=== PATIENT | male | born 1940 | race Hispanic/Latino ===

== ENCOUNTER 2016-11-08 19:10 | Inpatient (IN) | payer MEDICARE, OTHER ==
--- NOTE | 2016-11-08 19:54 | ED PDOC ---
Arrival/HPI - General Chief Complaint: Abdominal Pain Time Seen by Provider: 11/08/16 19:24 Historian: Patient, Family - History of Present Illness Narrative History of Present Illness (Text): 11/08/16 19:51 Pt. to ED PMHX HTN,hyperlipidemia with c/o upper abdominal discomfort since earlier today.No N/V/D.No chest pain or SOB. Past Medical History - Provider Review Nursing Documentation Reviewed: Yes - Travel History Have you recently traveled outside [place] w/in the past 3 mons?: Yes If Yes, travel location?: [place] - Infectious Disease Hx of Infectious Diseases: None - Cardiac Hx Cardiac Disorders: Yes Hx Hypertension: Yes - Pulmonary Hx Respiratory Disorders: No - Neurological Hx Neurological Disorder: No - HEENT Hx HEENT Disorder: No - Renal Hx Renal Disorder: No - Endocrine/Metabolic Hx Endocrine Disorders: No - Hematological/Oncological Hx Blood Disorders: No - Integumentary Hx Dermatological Disorder: No - Musculoskeletal/Rheumatological Hx Musculoskeletal Disorders: No - Gastrointestinal Hx Gastrointestinal Disorders: No - Genitourinary/Gynecological Hx Genitourinary Disorders: No - Psychiatric Hx Psychophysiologic Disorder: No Hx Substance Use: No - Surgical History Other/Comment: intestinal surgery - Anesthesia Hx Anesthesia: Yes Hx Anesthesia Reactions: No Hx Malignant Hyperthermia: No Family/Social History - Physician Review Nursing Documentation Reviewed: Yes Family/Social History: Hypertension Smoking Status: Never Smoked Hx Alcohol Use: Yes Hx Substance Use: No Allergies/Home Meds Allergies/Adverse Reactions: Allergies No Known Allergies Allergy (Verified 11/08/16 19:39) Home Medications: Home Meds Medication Instructions Recorded Confirmed Rosuvastatin Calcium [Crestor] 10 mg PO DIN 07/08/16 11/08/16 Olmesartan/Hydrochlorothiazide 1 tab PO DAILY 11/08/16 11/08/16 [Benicar Hct 20-12.5 mg Tablet] Review of Systems - Review of Systems Constitutional: Normal Eyes: Normal ENT: Normal Respiratory: Normal Cardiovascular: Normal Gastrointestinal: Abdominal Pain Genitourinary Male: Normal Musculoskeletal: Normal Skin: Normal Neurological: Normal Endocrine: Normal Hemo/Lymphatic: Normal Psychiatric: Normal Physical Exam Vital Signs Temp Pulse Resp BP Pulse Ox 11/09/16 01:28 69 16 165/97 H 97 11/09/16 00:47 70 16 167/81 H 11/08/16 21:53 66 16 167/78 H 98 11/08/16 19:39 98.6 F 70 19 176/75 H 99 Temperature: Afebrile Blood Pressure: Normal Pulse: Regular Respiratory Rate: Normal Appearance: Positive for: Well-Appearing, Non-Toxic, Comfortable Pain Distress: None Mental Status: Positive for: Alert and Oriented X 3 - Systems Exam Head: Present: Atraumatic, Normocephalic Pupils: Present: PERRL Extroacular Muscles: Present: EOMI Conjunctiva: Present: Normal Mouth: Present: Moist Mucous Membranes Neck: Present: Normal Range of Motion Respiratory/Chest: Present: Clear to Auscultation, Good Air Exchange. No: Respiratory Distress, Accessory Muscle Use Cardiovascular: Present: Regular Rate and Rhythm, Normal S1, S2. No: Murmurs Abdomen: Present: Tenderness (mild upper abdominal/epigastric), Normal Bowel Sounds. No: Distention, Peritoneal Signs, Rebound, Guarding, Hernias Back: Present: Normal Inspection. No: CVA Tenderness Upper Extremity: Present: Normal Inspection. No: Cyanosis, Edema Lower Extremity: Present: Normal Inspection. No: Edema Neurological: Present: GCS=15, CN II-XII Intact, Speech Normal Skin: Present: Warm, Dry, Normal Color. No: Rashes Psychiatric: Present: Alert, Oriented x 3, Normal Insight, Normal Concentration Medical Decision Making ED Course and Treatment: 11/08/16 22:19 Reviewed sono, US Abdomen shows: Liver: 1 cm cystic focus in the right lobe of the liver. Increased echogenicity/ fatty infiltration. Gallbladder: Unremarkable as visualized. No gallstones. Common bile duct: No dilation. Pancreas: Limited evaluation. Unremarkable as visualized. Kidneys: Right kidney not imaged. Left kidney measures 11.5 cm and appears unremarkable. Spleen: No splenomegaly. Aorta/IVC: Limited evaluation. Unremarkable as visualized. IMPRESSION: 1 cm cystic focus in the right lobe of the liver. Increased echogenicity/fatty infiltration of the liver. Right kidney not imaged. Correlate clinically. Followup as warranted. Chest X-ray shows no acute processes. 11/08/16 23:51 Reviewed radiology, CT Abdomen and Pelvis shows: Dilated gallbladder. Intrahepatic biliary ductal dilatation. Common bile duct measures up to [address] Radiodense focus in the region of the common bile duct/insertion in the duodenum, question obstructing stone, series 2 image 77. Approximately 4.5 mm nodule in the right lower lobe, series 5 image 1. Correlation with prior imaging/dedicated imaging to assess stability versus followup imaging recommended. Distal gastric wall/region of the antrum appears to demonstrate wall thickening. Correlate clinically. 11 mm cystic focus in the right lobe of the liver, series 2 image 39. Bilateral renal cysts/hypoattenuating lesions. 6 cm right renal cyst. The largest cysts on the left measure approximately 2.4 cm and 1.6 cm. Additional bilateral subcentimeter hypoattenuating lesions which are incompletely characterized on the current study. Prominent heterogeneous prostate. Correlate with PSA. Colonic diverticula. Small bilateral fat-containing inguinal hernias. Please see additional details/findings as above. 11/09/16 00:27 Case discussed with medical i d sales safety and health consultant, who is aware and agrees with plan. 11/09/16 00:[address] Wilson, who is aware and agrees with plan. Pt will be admitted to [facility] for choledocholithiasis and abdominal pain under the hospitalist service. - Lab Interpretations Lab Results: 11/08/16 20:05 11/08/16 20:05 Lab Results 11/08/16 22:40: Urine Color Yellow, Urine Appearance Clear, Urine pH 7.0, Ur Specific [place] 1.015, Urine Protein Negative, Urine Glucose (UA) Negative, Urine Ketones Negative, Urine Blood Negative, Urine Nitrate Negative, Urine Bilirubin Negative, Urine Urobilinogen 0.2, Ur Leukocyte Esterase Negative 11/08/16 20:05: WBC 5.9, RBC 4.47, Hgb 13.3 L, Hct 39.3 L, MCV 87.9, MCH 29.8, MCHC 33.8, RDW 12.6, Plt Count 295, MPV 8.8 11/08/16 20:05: Sodium 143, Potassium 4.5, Chloride 101, Carbon Dioxide 32, Anion Gap 15, BUN 20, Creatinine 1.2, Est GFR ( Amer) > 60, Est GFR (Non- Af Amer) 59, Random Glucose 155 H, Calcium 10.0, Total Bilirubin 1.6 H, AST 492 H, ALT 517 H, Alkaline Phosphatase 388 H, Lactate Dehydrogenase 1534 H, Total Creatine Kinase 61, Troponin I < 0.01, Total Protein 7.7, Albumin 4.4, Globulin 3.3, Albumin/Globulin Ratio 1.3, Lipase 161 11/08/16 20:05: PT 11.1, INR 1.03, APTT 25.7 I have reviewed the lab results: Yes - RAD Interpretation Narrative RAD Interpretations (Text): , CT Abdomen and Pelvis shows: Atelectasis/scarring at the lung bases. Approximately 4.5 mm nodule in the right lower lobe, series 5 image 1. Correlation with prior imaging/dedicated imaging to assess stability versus followup imaging recommended. Dilated gallbladder. Intrahepatic biliary ductal dilatation. Common bile duct measures up to [address] Radiodense focus in the region of the common bile duct/insertion in the duodenum, question obstructing stone, series 2 image 77. 11 mm cystic focus in the right lobe of the liver, series 2 image 39. The spleen, pancreas and adrenal glands demonstrate no acute abnormalities. The kidneys are symmetric with no evidence of hydronephrosis. Bilateral renal cysts/hypoattenuating lesions. 6 cm right renal cyst. The largest cysts on the left measure approximately 2.4 cm and 1.6 cm. Additional bilateral subcentimeter hypoattenuating lesions which are incompletely characterized on the current study. Atherosclerosis. Evaluation of bowel limited without enteric contrast. Minimal hiatal hernia. Distal gastric wall/region of the antrum appears to demonstrate wall thickening. No small bowel obstruction. Chain sutures, correlate for prior surgery. Colonic diverticula. Prominent heterogeneous prostate. Correlate with PSA. Small bilateral fat-containing inguinal hernias. Degenerative changes. IMPRESSION: Dilated gallbladder. Intrahepatic biliary ductal dilatation. Common bile duct measures up to [address] Radiodense focus in the region of the common bile duct/insertion in the duodenum, question obstructing stone, series 2 image 77. Approximately 4.5 mm nodule in the right lower lobe, series 5 image 1. Correlation with prior imaging/dedicated imaging to assess stability versus followup imaging recommended. Distal gastric wall/region of the antrum appears to demonstrate wall thickening. Correlate clinically. 11 mm cystic focus in the right lobe of the liver, series 2 image 39. Bilateral renal cysts/hypoattenuating lesions. 6 cm right renal cyst. The largest cysts on the left measure approximately 2.4 cm and 1.6 cm. Additional bilateral subcentimeter hypoattenuating lesions which are incompletely characterized on the current study. Prominent heterogeneous prostate. Correlate with PSA. Colonic diverticula. Small bilateral fat-containing inguinal hernias. Please see additional details/findings as above. Radiology Orders: 11/08/16 19:49 CHEST PORTABLE [RAD] Stat 11/08/16 19:54 ABDOMEN COMPLETE [US] Stat 11/08/16 22:21 ABD & PELVIS IV CONTRAST ONLY [CT] Stat Wire Bound Box Machine Operator: ED Physician, Radiologist - EKG Interpretation EKG Interpretation (Text): 11/08/16 19:55 EKG-NSR @ 63,normal interval,normal ekg Interpreted by ED Physician: Yes Type: 12 lead EKG - Medication Orders Current Medication Orders: Atorvastatin Calcium (Lipitor) 40 mg PO DIN BENJA Hydrochlorothiazide (Microzide) 12.5 mg PO DAILY BENJA Sodium Chloride (Sodium Chloride 0.9%) 1,000 mls @ 100 mls/hr IV .Q10H BENJA Last Admin: 11/08/16 20:13 Dose: 100 mls/hr Famotidine (Pepcid 20mg/50ml Premix) 20 mg in 50 mls @ 100 mls/hr IV Q12 [facility] Losartan Potassium (Cozaar) 50 mg PO DAILY [facility] Morphine Sulfate (Morphine) 2 mg IVP Q4H PRN PRN Reason: Pain, severe (8-10) Ondansetron HCl (Zofran Inj) 4 mg IVP Q6H PRN PRN Reason: Nausea/Vomiting Discontinued Medications Famotidine (Pepcid) 20 mg IVP STAT STA Stop: 11/08/16 19:52 Last Admin: 11/08/16 20:14 Dose: 20 mg Iohexol (Omnipaque 350 100 Ml) Confirm Administered Dose 350 mg .ROUTE .STK-MED ONE Stop: 11/08/16 22:27 Ketorolac Tromethamine (Toradol) 30 mg IVP ONCE ONE Stop: 11/08/16 19:51 Last Admin: 11/08/16 20:14 Dose: 30 mg Morphine Sulfate (Morphine) 2 mg IVP STAT STA Stop: 11/09/16 00:15 Last Admin: 11/09/16 01:19 Dose: 2 mg Ondansetron HCl (Zofran Inj) 4 mg IVP ONCE ONE Stop: 11/09/16 00:15 Last Admin: 11/09/16 01:20 Dose: 4 mg Pneumococcal Polyvalent Vaccine (Pneumovax 23 Vaccine) 0.5 ml IM .ONCE ONE Stop: 11/09/16 02:15 Disposition/Present on Arrival - Present on Arrival Any Indicators Present on Arrival: No History of DVT/PE: No History of Uncontrolled Diabetes: No Urinary Catheter: No History of Decub. Ulcer: No History Surgical Site Infection Following: None - Disposition Have Diagnosis and Disposition been Completed?: Yes Diagnosis: Intractable abdominal pain, Choledocholithiasis, Elevated transaminase level Disposition: HOSPITALIZED Disposition Time: 00:31 Patient Plan: Admission Patient Problems: Current Active Problems Problem Status Onset Choledocholithiasis Acute Elevated transaminase level Acute Intractable abdominal pain Acute Condition: STABLE
[2016-11-08] MEDS ORDERED: Sodium Chloride 0.9% 1,000 ML IV SCH (20:00)
[2016-11-08 20:20] LABS: HEMATOCRIT 39.3 % (42.0-52.0); MEAN CELL VOLUME 87.9 fl (80.0-105.0); MEAN CORPUSCULAR HEMOGLOBIN 29.8 pg (25.0-35.0); MEAN CORPUSCULAR HGB CONC 33.8 g/dl (31.0-37.0); MEAN PLATELET VOLUME 8.8 fl (7.0-11.0); RED CELL DISTRIBUTION WIDTH 12.6 % (11.5-14.5); WHITE BLOOD COUNT 5.9 10^3/ul (4.5-11.0)
[2016-11-08 20:27] LABS: INR 1.03 (0.93-1.08); PARTIAL THROMBOPLASTIN TIME 25.7 Seconds (23.7-30.8)
[2016-11-08 20:31] LABS: ALB/GLOB RATIO 1.3 (1.1-1.8); ALKALINE PHOSPHATASE 388 U/L (38-133); ALT/SGPT 517 U/L (7-56); AST/SGOT 492 U/L (15-59); BILIRUBIN,TOTAL 1.6 mg/dL (0.2-1.3); BLOOD UREA NITROGEN 20 mg/dL (7-21); CARBON DIOXIDE 32 mmol/L (21-33); CHLORIDE 101 mmol/L (98-107); GFR AFRICAN-AMERICAN > 60; GLUCOSE,RANDOM 155 mg/dL (70-110); LIPASE 161 U/L (23-300); POTASSIUM 4.5 mmol/L (3.6-5.0); SODIUM 143 mmol/L (132-148); TOTAL PROTEIN 7.7 g/dL (5.8-8.3)
[2016-11-08 20:43] LABS: TROPONIN I < 0.01 ng/mL
--- NOTE | 2016-11-08 21:43 | US ---
EXAM: US Abdomen Complete CLINICAL HISTORY: 76 years old, male; Pain; Abdominal pain; Additional info: Upper abdominal discomfort TECHNIQUE: Real-time ultrasound of the abdomen (complete) with image documentation. COMPARISON: No relevant prior studies available. FINDINGS: Liver: 1 cm cystic focus in the right lobe of the liver. Increased echogenicity/fatty infiltration. Gallbladder: Unremarkable as visualized. No gallstones. Common bile duct: No dilation. Pancreas: Limited evaluation. Unremarkable as visualized. Kidneys: Right kidney not imaged. Left kidney measures 11.5 cm and appears unremarkable. Spleen: No splenomegaly. Aorta/IVC: Limited evaluation. Unremarkable as visualized. IMPRESSION: 1 cm cystic focus in the right lobe of the liver. Increased echogenicity/fatty infiltration of the liver. Right kidney not imaged. Correlate clinically. Followup as warranted.
[2016-11-08] MEDS ORDERED: Iohexol 350 MG/100 ML VIAL ONE (22:26)
[2016-11-08 22:46] LABS: URINE BILIRUBIN NEGATIVE (NEGATIVE); URINE BLOOD NEGATIVE (NEGATIVE); URINE GLUCOSE (UA) NEGATIVE (NEGATIVE); URINE KETONE NEGATIVE (NEGATIVE); URINE LEUKOCYTE ESTERASE NEGATIVE Leu/uL (NEGATIVE); URINE PROTEIN NEGATIVE mg/dL (<30 mg/dL); URINE UROBILINOGEN 0.2 E.U./dL (<1 E.U./dL)
[2016-11-08 22:51] LABS: URINE APPEARANCE CLEAR (CLEAR); URINE COLOR YELLOW (YELLOW)
--- NOTE | 2016-11-08 23:50 | CT ---
EXAM: CT Abdomen and Pelvis With Intravenous Contrast CLINICAL HISTORY: 76 years old, male; Pain; Abdominal pain; Epigastric; Prior surgery; Surgery date: 6+ months; Surgery type: Colon surgery; Additional info: Upper abdominal pain TECHNIQUE: Axial computed tomography images of the abdomen and pelvis with intravenous contrast. All CT scans at this facility use one or more dose reduction techniques, viz.: automated exposure control; ma/kV adjustment per patient size (including targeted exams where dose is matched to indication; i.e. head); or iterative reconstruction technique. Coronal and sagittal reformatted images were created and reviewed. CONTRAST: 96 mL of [id number] administered intravenously. COMPARISON: US - ABDOMEN COMPLETE 11/08/2016 8:32:20 PM FINDINGS: Atelectasis/scarring at the lung bases. Approximately 4.5 mm nodule in the right lower lobe, series 5 image 1. Correlation with prior imaging/dedicated imaging to assess stability versus followup imaging recommended. Dilated gallbladder. Intrahepatic biliary ductal dilatation. Common bile duct measures up to [address] Radiodense focus in the region of the common bile duct/insertion in the duodenum, question obstructing stone, series 2 image 77. 11 mm cystic focus in the right lobe of the liver, series 2 image 39. The spleen, pancreas and adrenal glands demonstrate no acute abnormalities. The kidneys are symmetric with no evidence of hydronephrosis. Bilateral renal cysts/hypoattenuating lesions. 6 cm right renal cyst. The largest cysts on the left measure approximately 2.4 cm and 1.6 cm. Additional bilateral subcentimeter hypoattenuating lesions which are incompletely characterized on the current study. Atherosclerosis. Evaluation of bowel limited without enteric contrast. Minimal hiatal hernia. Distal gastric wall/region of the antrum appears to demonstrate wall thickening. No small bowel obstruction. Chain sutures, correlate for prior surgery. Colonic diverticula. Prominent heterogeneous prostate. Correlate with PSA. Small bilateral fat-containing inguinal hernias. Degenerative changes. IMPRESSION: Dilated gallbladder. Intrahepatic biliary ductal dilatation. Common bile duct measures up to [address] Radiodense focus in the region of the common bile duct/insertion in the duodenum, question obstructing stone, series 2 image 77. Approximately 4.5 mm nodule in the right lower lobe, series 5 image 1. Correlation with prior imaging/dedicated imaging to assess stability versus followup imaging recommended. Distal gastric wall/region of the antrum appears to demonstrate wall thickening. Correlate clinically. 11 mm cystic focus in the right lobe of the liver, series 2 image 39. Bilateral renal cysts/hypoattenuating lesions. 6 cm right renal cyst. The largest cysts on the left measure approximately 2.4 cm and 1.6 cm. Additional bilateral subcentimeter hypoattenuating lesions which are incompletely characterized on the current study. Prominent heterogeneous prostate. Correlate with PSA. Colonic diverticula. Small bilateral fat-containing inguinal hernias. Please see additional details/findings as above.
[2016-11-09] MEDS ORDERED: Morphine 2 mg/ml ISec IVP STA (00:14)
--- NOTE | 2016-11-09 01:36 | CP.PCM.HP ---
<David Messer - Last Filed: 11/09/16 02:43> History of Present Illness - History of Present Illness History of Present Illness: CC: Abdominal Pain HPI: Patient is a 76 year old male with past medical history significant for HLD and HTN who presents complaining of mid-epigastric abdominal pain. Patient reports beginning around 5 AM on 11/08/2016 he began experiencing constant, dull , achy non radiating mid-epigastric pain. He rated the pain as moderate and denies alleviating or aggravating factors. Patient denies fever, chills, nausea , vomiting, change in bowel habits or stool, hematochezia, chest pain and shortness of breath.Patient reports similar episodes of pain about 3-4 months ago. He states he took Tylenol for his symptoms and the pain resolved on its own. Patient does state he has had an endoscopy and colonoscopy a few years ago which were reported as normal. 12 point review of system was negative except for what is mentioned in HPI PMH: HLD, HTN PSH: Tumor removal of small intestine in 2002 FMH: - Father: CABG, [place]? - Mother: none SOCHx: - Tobacco: Former, 1 PPD ~20 years - Etoh: Social, wine - ID: Denies ALL: NKDA MEDS: - Pa[place] - Gabby PMD: Dr. Jason Jones Present on Admission - Present on Admission Any Indicators Present on Admission: No History of DVT/PE: No History of Uncontrolled Diabetes: No Urinary Catheter: No Decubitus Ulcer Present: No Review of Systems - Review of Systems All systems: reviewed and no additional remarkable complaints except Review of Systems: except for what is mentioned in HPI Past Patient History - Infectious Disease Hx of Infectious Diseases: None - Past Social History Smoking Status: Former Smoker Alcohol: Social Drugs: Denies - CARDIAC Hx Cardiac Disorders: Yes Hx Hypertension: Yes - PULMONARY Hx Respiratory Disorders: No - NEUROLOGICAL Hx Neurological Disorder: No - HEENT Hx HEENT Problems: No - RENAL Hx Chronic Kidney Disease: No - ENDOCRINE/METABOLIC Hx Endocrine Disorders: No - HEMATOLOGICAL/ONCOLOGICAL Hx Blood Disorders: No - INTEGUMENTARY Hx Dermatological Problems: No - MUSCULOSKELETAL/RHEUMATOLOGICAL Hx Musculoskeletal Disorders: No - GASTROINTESTINAL Hx Gastrointestinal Disorders: No - GENITOURINARY/GYNECOLOGICAL Hx Genitourinary Disorders: No - PSYCHIATRIC Hx Psychophysiologic Disorder: No Hx Substance Use: No - SURGICAL HISTORY Other/Comment: intestinal surgery - ANESTHESIA Hx Anesthesia: Yes Hx Anesthesia Reactions: No Hx Malignant Hyperthermia: No Meds Allergies/Adverse Reactions: Allergies Allergy/AdvReac Type Severity Reaction Status Date / Time No Known Allergies Allergy Verified 11/08/16 19:39 Physical Exam - Constitutional Appears: Well - Head Exam Head Exam: ATRAUMATIC, NORMAL INSPECTION, NORMOCEPHALIC - Eye Exam Eye Exam: EOMI, PERRL - ENT Exam ENT Exam: Mucous Membranes Moist - Neck Exam Neck exam: Positive for: Full Rom, Normal Inspection - Respiratory Exam Respiratory Exam: Clear to Auscultation Bilateral, NORMAL BREATHING PATTERN - Cardiovascular Exam Cardiovascular Exam: REGULAR RHYTHM, +S1, +S2 - GI/Abdominal Exam GI & Abdominal Exam: Normal Bowel Sounds, Soft, Tenderness (mid epigastric ). absent: Firm, Rebound - Rectal Exam Rectal Exam: Deferred - Extremities Exam Extremities exam: Positive for: normal inspection, pedal pulses present. Negative for: calf tenderness - Back Exam Back exam: NORMAL INSPECTION - Neurological Exam Neurological exam: Alert, CN II-XII Intact, Normal Gait, Oriented x3, Reflexes Normal - Psychiatric Exam Psychiatric exam: Normal Affect, Normal Mood - Skin Skin Exam: Dry, Intact, Normal Color, Warm Results - Vital Signs Recent Vital Signs: Last Vital Signs Temp 98.6 F 11/08/16 19:39 Pulse 69 11/09/16 01:28 Resp 16 11/09/16 01:28 BP 165/97 H 11/09/16 01:28 Pulse Ox 97 11/09/16 01:28 - Labs Result Diagrams: 11/08/16 20:05 11/08/16 20:05 Labs: Laboratory Results - last 24 hr 11/08/16 11/08/16 11/08/16 20:05 20:05 20:05 WBC 5.9 RBC 4.47 Hgb 13.3 L Hct 39.3 L MCV 87.9 MCH 29.8 MCHC 33.8 RDW 12.6 Plt Count 295 MPV 8.8 PT 11.1 INR 1.03 APTT 25.7 Sodium 143 Potassium 4.5 Chloride 101 Carbon Dioxide 32 Anion Gap 15 BUN 20 Creatinine 1.2 Est GFR ( Amer) > 60 Est GFR (Non-Af Amer) 59 Random Glucose 155 H Calcium 10.0 Total Bilirubin 1.6 H AST 492 H ALT 517 H Alkaline Phosphatase 388 H Lactate Dehydrogenase 1534 H Total Creatine Kinase 61 Troponin I < 0.01 Total Protein 7.7 Albumin 4.4 Globulin 3.3 Albumin/Globulin Ratio 1.3 Lipase 161 Urine Color Urine Appearance Urine pH Ur Specific [place] Urine Protein Urine Glucose (UA) Urine Ketones Urine Blood Urine Nitrate Urine Bilirubin Urine Urobilinogen Ur Leukocyte Esterase 11/08/16 22:40 WBC RBC Hgb Hct MCV MCH MCHC RDW Plt Count MPV PT INR APTT Sodium Potassium Chloride Carbon Dioxide Anion Gap BUN Creatinine Est GFR ( Amer) Est GFR (Non-Af Amer) Random Glucose Calcium Total Bilirubin AST ALT Alkaline Phosphatase Lactate Dehydrogenase Total Creatine Kinase Troponin I Total Protein Albumin Globulin Albumin/Globulin Ratio Lipase Urine Color Yellow Urine Appearance Clear Urine pH 7.0 Ur Specific [place] 1.015 Urine Protein Negative Urine Glucose (UA) Negative Urine Ketones Negative Urine Blood Negative Urine Nitrate Negative Urine Bilirubin Negative Urine Urobilinogen 0.2 Ur Leukocyte Esterase Negative Assessment & Plan - Assessment and Plan (Free Text) Assessment: Patient is a 76 year old male with past medical history significant for HLD and HTN who presents complaining of mid-epigastric abdominal pain. CT abdomen shows evidence of stone in CBD with right hepatic lobe present. Patient will be admitted for observation and evaluation by GI. Plan: 1. Choledocholithiasis - CT abdomen and pelvis showing evidence of stone within CBD at insertion of duodenum as well as 4.5 mm hepatic nodule in right lower lobe - Consult GI, appreciate recs - NPO - Analgesia with [id number] Q4H prn - Zofran - IVF - Repeat labs in AM 2. Transaminitis - AST 492, ALT 517 - Likely secondary to CBD obstruction - IVF - Monitor 3. HTN - Continue PO home meds - Monitor 4. Hx of HLD - Continue to PO home meds GI/DVT ppx - IV pepcid - SCDs - Date & Time Date: 11/09/16 Time: 02:33 <Dipak Wilson Q - Last Filed: 11/09/16 04:30> Results - Vital Signs Recent Vital Signs: Last Vital Signs Temp 98.8 F 11/09/16 02:08 Pulse 67 11/09/16 02:08 Resp 18 11/09/16 02:08 BP 170/79 H 11/09/16 02:08 Pulse Ox 97 11/09/16 01:28 - Labs Result Diagrams: 11/08/16 20:05 11/08/16 20:05 Attending/Attestation - Attestation I have personally seen and examined this patient.: Yes I have fully participated in the care of the patient.: Yes I have reviewed all pertinent clinical information: Yes Notes (Text): 11/09/16 04:29 I agree with the above mentioned note and exam by the resident with the addition /exception of the followin76 y/o male with Htn and dyslipidemia presents with worsening abdominal pain which he reports has been occurring intermittently for months. CT Abd/pelvis is most notable for a dilated CBD with stone present. GI consulted, possible ERCP if the patient's symptoms fail to respond with supportive measures.
[2016-11-09] MEDS ORDERED: Morphine 2 mg/ml ISec IVP PRN (02:10)
[2016-11-09 02:14] VITALS: BMI 25.6
[2016-11-09] MEDS ORDERED: Pneumococcal 23-Valent Vaccine IM ONE (02:14)
--- NOTE | 2016-11-09 07:48 | RAD ---
HISTORY: abdominal pain COMPARISON: 07/08/2016 FINDINGS: LUNGS: No active pulmonary disease. PLEURA: No significant pleural effusion identified, no pneumothorax apparent. CARDIOVASCULAR: Normal. OSSEOUS STRUCTURES: No significant abnormalities. VISUALIZED UPPER ABDOMEN: Normal. OTHER FINDINGS: None. IMPRESSION: No active disease.
[2016-11-09] MEDS ORDERED: Iohexol 240 (50 ml) ONE (08:26)
[2016-11-09] MEDS ORDERED: Indomethacin 50 MG Suppository PR ONE (08:36)
[2016-11-09 08:38] LABS: BASO # 0.02 K/mm3 (0.0-2.0); BASO % 0.1 % (0.0-3.0); EOS % 0.2 % (1.5-5.0); GRAN # 12.07 (1.4-6.5); GRAN % 90.5 % (50.0-68.0); HEMATOCRIT 39.2 % (42.0-52.0); LYMPH # 0.7 (1.2-3.4); LYMPH % 4.9 % (22.0-35.0); MEAN CELL VOLUME 87.7 fl (80.0-105.0); MEAN CORPUSCULAR HEMOGLOBIN 29.8 pg (25.0-35.0); MEAN CORPUSCULAR HGB CONC 33.9 g/dl (31.0-37.0); MEAN PLATELET VOLUME 8.8 fl (7.0-11.0); MONO # 0.6 (0.1-0.6); MONO % 4.3 % (1.0-6.0); PLATELET COUNT 291 10^3/uL (120.0-450.0); RED CELL DISTRIBUTION WIDTH 12.8 % (11.5-14.5); WHITE BLOOD COUNT 13.4 10^3/ul (4.5-11.0)
[2016-11-09 08:50] LABS: ALB/GLOB RATIO 1.3 (1.1-1.8); ALKALINE PHOSPHATASE 386 U/L (38-133); ALT/SGPT 474 U/L (7-56); AST/SGOT 298 U/L (15-59); BLOOD UREA NITROGEN 15 mg/dL (7-21); CALCIUM 9.4 mg/dL (8.4-10.5); CARBON DIOXIDE 29 mmol/L (21-33); CHLORIDE 105 mmol/L (98-107); GFR AFRICAN-AMERICAN > 60; GLUCOSE,RANDOM 117 mg/dL (70-110); POTASSIUM 4.7 mmol/L (3.6-5.0); SODIUM 146 mmol/L (132-148); TOTAL PROTEIN 7.3 g/dL (5.8-8.3)
[2016-11-09 08:58] LABS: ANISOCYTOSIS SLIGHT; NEUTROPHIL 90 % (50.0-70.0); PLATELET ESTIMATE NORMAL (NORMAL)
[2016-11-09] MEDS: Famotidine 20mg/50ml 20 MG/50 ML BAG IV SCH ×2 (09:41→22:02)
--- NOTE | 2016-11-09 10:03 | CP.PCM.CON ---
<Jacy Turner - Last Filed: 11/09/16 10:04> History of Present Illness - History of Present Illness History of Present Illness: Gastroenterology Fellow/PGY5 Consult Note 76 year old male with history of Hypertension, Hyperlipidemia,and prior small bowel tumor removal 2002 presenting with abdominal pain. Patient describes epigastric to right upper abdomen "pinching" intermittent pain yesterday. He had similar pain for a week straight last week and three months ago. Denies fever, chills, sweats, nausea, vomiting, hematemesis, diarrhea, constipation, melena, hematochezia, or unintentional weight loss. No prior EGD or colonoscopy. Family- denies cholelithiasis, liver disease, colorectal cancer Social- quit tobacco 25 years ago, denies alcohol or illicit drug use Surgery- "small bowel tumor removal" 2002 Review of Systems - Review of Systems Review of Systems: 12-point review of systems negative except for as above Past Patient History - Infectious Disease Hx of Infectious Diseases: None - Past Social History Smoking Status: Never Smoked - CARDIAC Hx Cardiac Disorders: Yes Hx Hypertension: Yes - PULMONARY Hx Respiratory Disorders: No - NEUROLOGICAL Hx Neurological Disorder: No - HEENT Hx HEENT Problems: No - RENAL Hx Chronic Kidney Disease: No - ENDOCRINE/METABOLIC Hx Endocrine Disorders: No - HEMATOLOGICAL/ONCOLOGICAL Hx Blood Disorders: No - INTEGUMENTARY Hx Dermatological Problems: No - MUSCULOSKELETAL/RHEUMATOLOGICAL Hx Musculoskeletal Disorders: No - GASTROINTESTINAL Hx Gastrointestinal Disorders: No - GENITOURINARY/GYNECOLOGICAL Hx Genitourinary Disorders: No - PSYCHIATRIC Hx Psychophysiologic Disorder: No Hx Substance Use: No - SURGICAL HISTORY Other/Comment: intestinal surgery - ANESTHESIA Hx Anesthesia: Yes Hx Anesthesia Reactions: No Hx Malignant Hyperthermia: No Meds Allergies/Adverse Reactions: Allergies Allergy/AdvReac Type Severity Reaction Status Date / Time No Known Allergies Allergy Verified 11/08/16 19:39 - Medications Medications: Current Medications Atorvastatin Calcium (Lipitor) 40 mg PO DIN [facility] Hydrochlorothiazide (Microzide) 12.5 mg PO DAILY [facility] Last Admin: 11/09/16 09:41 Dose: 12.5 mg Sodium Chloride (Sodium Chloride 0.9%) 1,000 mls @ 100 mls/hr IV .Q10H [facility] Last Admin: 11/08/16 20:13 Dose: 100 mls/hr Famotidine (Pepcid 20mg/50ml Premix) 20 mg in 50 mls @ 100 mls/hr IV Q12 [facility] Last Admin: 11/09/16 09:41 Dose: 100 mls/hr Losartan Potassium (Cozaar) 50 mg PO DAILY [facility] Last Admin: 11/09/16 09:41 Dose: 50 mg Morphine Sulfate (Morphine) 2 mg IVP Q4H PRN PRN Reason: Pain, severe (8-10) Ondansetron HCl (Zofran Inj) 4 mg IVP Q6H PRN PRN Reason: Nausea/Vomiting Physical Exam - Constitutional Appears: Non-toxic, No Acute Distress - Head Exam Head Exam: ATRAUMATIC, NORMOCEPHALIC - Eye Exam Eye Exam: EOMI, PERRL Pupil Exam: PERRL. absent: Miosis, Mydriatic - ENT Exam ENT Exam: Mucous Membranes Moist, Normal Oropharynx - Neck Exam Neck exam: Positive for: Full Rom, Normal Inspection - Respiratory Exam Respiratory Exam: Clear to Auscultation Bilateral. absent: Rales, Rhonchi, Wheezes - Cardiovascular Exam Cardiovascular Exam: RRR, +S1, +S2. absent: Gallop, Rubs - GI/Abdominal Exam GI & Abdominal Exam: Normal Bowel Sounds, Soft. absent: Distended, Firm, Guarding, Organomegaly, Rebound, Rigid ( ), Tenderness - Extremities Exam Extremities exam: Positive for: normal inspection. Negative for: pedal edema - Neurological Exam Neurological exam: Alert - Psychiatric Exam Psychiatric exam: Normal Affect, Normal Mood - Skin Skin Exam: Dry, Intact, Normal Color, Warm Results - Vital Signs Recent Vital Signs: Last Vital Signs Temp 99.1 F 11/09/16 07:00 Pulse 82 11/09/16 07:00 Resp 18 11/09/16 07:00 BP 162/92 H 11/09/16 07:00 Pulse Ox 95 11/09/16 07:00 - Labs Result Diagrams: 11/09/16 08:20 11/09/16 08:20 Labs: Laboratory Results - last 24 hr 11/09/16 11/09/16 08:20 08:20 WBC 13.4 H D RBC 4.47 Hgb 13.3 L Hct 39.2 L MCV 87.7 MCH 29.8 MCHC 33.9 RDW 12.8 Plt Count 291 MPV 8.8 Gran % 90.5 H Lymph % (Auto) 4.9 L [place] % (Auto) 4.3 Eos % (Auto) 0.2 L Baso % (Auto) 0.1 Gran # 12.07 H Lymph # 0.7 L [place] # 0.6 Eos # 0.0 Baso # 0.02 Neutrophils % (Manual) 90 H Lymphocytes % (Manual) 5 L Monocytes % (Manual) 5 Platelet Evaluation Normal Anisocytosis (manual) Slight Sodium 146 Potassium 4.7 Chloride 105 Carbon Dioxide 29 Anion Gap 17 BUN 15 Creatinine 1.1 Est GFR ( Amer) > 60 Est GFR (Non-Af Amer) > 60 Random Glucose 117 H Calcium 9.4 Total Bilirubin 3.0 H AST 298 H ALT 474 H Alkaline Phosphatase 386 H Total Protein 7.3 Albumin 4.1 Globulin 3.1 Albumin/Globulin Ratio 1.3 Assessment & Plan - Assessment and Plan (Free Text) Assessment: 76 year old male with history of Hypertension, Hyperlipidemia, and prior small bowel tumor removal 2002 presenting with abdominal pain. Active treatment of choledocholithiasis. No prior EGD or colonoscopy. Plan: >scheduled for EGD/EUS/ERCP today >NPO >obtain surgery consult for cholecystectomy >supportive care: pain control, antiemetics >trend LFTs >hemodynamically stable >further recommendations after endoscopic procedures <Kishor Rivera - Last Filed: 11/09/16 12:25> Meds - Medications Medications: Current Medications Atorvastatin Calcium (Lipitor) 40 mg PO DIN [facility] Hydrochlorothiazide (Microzide) 12.5 mg PO DAILY [facility] Last Admin: 11/09/16 09:41 Dose: 12.5 mg Sodium Chloride (Sodium Chloride 0.9%) 1,000 mls @ 100 mls/hr IV .Q10H [facility] Last Admin: 11/08/16 20:13 Dose: 100 mls/hr Famotidine (Pepcid 20mg/50ml Premix) 20 mg in 50 mls @ 100 mls/hr IV Q12 [facility] Last Admin: 11/09/16 09:41 Dose: 100 mls/hr Losartan Potassium (Cozaar) 50 mg PO DAILY [facility] Last Admin: 11/09/16 09:41 Dose: 50 mg Morphine Sulfate (Morphine) 2 mg IVP Q4H PRN PRN Reason: Pain, severe (8-10) Ondansetron HCl (Zofran Inj) 4 mg IVP Q6H PRN PRN Reason: Nausea/Vomiting Results - Vital Signs Recent Vital Signs: Last Vital Signs Temp 99.1 F 11/09/16 07:00 Pulse 82 11/09/16 07:00 Resp 18 11/09/16 07:00 BP 162/92 H 11/09/16 07:00 Pulse Ox 95 11/09/16 07:00 - Labs Result Diagrams: 11/09/16 08:20 11/09/16 08:20 Labs: Laboratory Results - last 24 hr 11/09/16 11/09/16 08:20 08:20 WBC 13.4 H D RBC 4.47 Hgb 13.3 L Hct 39.2 L MCV 87.7 MCH 29.8 MCHC 33.9 RDW 12.8 Plt Count 291 MPV 8.8 Gran % 90.5 H Lymph % (Auto) 4.9 L [place] % (Auto) 4.3 Eos % (Auto) 0.2 L Baso % (Auto) 0.1 Gran # 12.07 H Lymph # 0.7 L [place] # 0.6 Eos # 0.0 Baso # 0.02 Neutrophils % (Manual) 90 H Lymphocytes % (Manual) 5 L Monocytes % (Manual) 5 Platelet Evaluation Normal Anisocytosis (manual) Slight Sodium 146 Potassium 4.7 Chloride 105 Carbon Dioxide 29 Anion Gap 17 BUN 15 Creatinine 1.1 Est GFR ( Amer) > 60 Est GFR (Non-Af Amer) > 60 Random Glucose 117 H Calcium 9.4 Total Bilirubin 3.0 H AST 298 H ALT 474 H Alkaline Phosphatase 386 H Total Protein 7.3 Albumin 4.1 Globulin 3.1 Albumin/Globulin Ratio 1.3 Attending/Attestation - Attestation I have personally seen and examined this patient.: Yes I have fully participated in the care of the patient.: Yes I have reviewed all pertinent clinical information: Yes Notes (Text): 11/09/16 12:20 76 year old male who presents with epigastric pain, elevated lfts, and evidence of choledocholithiasis on CT. 1. Choledocholithiasis Plan: -NPO -ercp today -start zosyn due to elev wbc in the setting of choledocholithiasis -surgical consult for eventual cholecystectomy -pain control as needed and IV hydration
--- NOTE | 2016-11-09 13:46 | CP.PCM.CON ---
History of Present Illness - History of Present Illness History of Present Illness: Surgery Consult Note: Dr. Higuera 76 yo M with PMH of HLD and HTN presented to ED yesterday with 2 mo hx of waxing and waning epigastric and RUQ pain. Surgery was consulted following abdominal CT which revealed 1cm liver lesion, small bowel lesion, and dilated CBD at 7mm. Pain is constant when present, and intermittently worse with deep inspiration. Pt complains of associated with insomnia and inability to "get comfortable" at rest. Pt took 2 acetaminophen yesterday for abdominal pain without relief. He states now that his pain is entirely resolved. He denies f/c/ n/v. Pt's daughter at bedside. PSH: small bowel tumor resection 2002 Social: NS (quit 25 years ago), occasional alcohol use. NKDA Review of Systems - Constitutional Constitutional: absent: Chills, Fever - Respiratory Respiratory: Pain on Inspiration. absent: Dyspnea - Gastrointestinal Gastrointestinal: Abdominal Pain. absent: Nausea, Vomiting Past Patient History - Infectious Disease Hx of Infectious Diseases: None - Past Social History Smoking Status: Never Smoked - CARDIAC Hx Cardiac Disorders: Yes Hx Hypertension: Yes - PULMONARY Hx Respiratory Disorders: No - NEUROLOGICAL Hx Neurological Disorder: No - HEENT Hx HEENT Problems: No - RENAL Hx Chronic Kidney Disease: No - ENDOCRINE/METABOLIC Hx Endocrine Disorders: No - HEMATOLOGICAL/ONCOLOGICAL Hx Blood Disorders: No - INTEGUMENTARY Hx Dermatological Problems: No - MUSCULOSKELETAL/RHEUMATOLOGICAL Hx Musculoskeletal Disorders: No - GASTROINTESTINAL Hx Gastrointestinal Disorders: No - GENITOURINARY/GYNECOLOGICAL Hx Genitourinary Disorders: No - PSYCHIATRIC Hx Psychophysiologic Disorder: No Hx Substance Use: No - SURGICAL HISTORY Other/Comment: intestinal surgery - ANESTHESIA Hx Anesthesia: Yes Hx Anesthesia Reactions: No Hx Malignant Hyperthermia: No Meds Allergies/Adverse Reactions: Allergies Allergy/AdvReac Type Severity Reaction Status Date / Time No Known Allergies Allergy Verified 11/08/16 19:39 - Medications Medications: Current Medications Atorvastatin Calcium (Lipitor) 40 mg PO DIN [facility] Hydrochlorothiazide (Microzide) 12.5 mg PO DAILY [facility] Last Admin: 11/09/16 09:41 Dose: 12.5 mg Sodium Chloride (Sodium Chloride 0.9%) 1,000 mls @ 100 mls/hr IV .Q10H [facility] Last Admin: 11/08/16 20:13 Dose: 100 mls/hr Famotidine (Pepcid 20mg/50ml Premix) 20 mg in 50 mls @ 100 mls/hr IV Q12 [facility] Last Admin: 11/09/16 09:41 Dose: 100 mls/hr Piperacillin Sod/Tazobactam Sod (Zosyn 3.375 In Ns 100ml) 100 mls @ 200 mls/hr IVPB Q6 [facility] PRN Reason: Protocol Stop: 11/10/16 00:29 Losartan Potassium (Cozaar) 50 mg PO DAILY [facility] Last Admin: 11/09/16 09:41 Dose: 50 mg Morphine Sulfate (Morphine) 2 mg IVP Q4H PRN PRN Reason: Pain, severe (8-10) Ondansetron HCl (Zofran Inj) 4 mg IVP Q6H PRN PRN Reason: Nausea/Vomiting Physical Exam - Constitutional Appears: Non-toxic, No Acute Distress Additional comments: Afebrile. Resting comfortably. Speaking in full sentences. - Head Exam Head Exam: ATRAUMATIC, NORMAL INSPECTION, NORMOCEPHALIC - Eye Exam Eye Exam: Normal appearance. absent: Conjunctival injection, Periorbital swelling, Scleral icterus - ENT Exam ENT Exam: Mucous Membranes Moist - Respiratory Exam Respiratory Exam: NORMAL BREATHING PATTERN. absent: Accessory Muscle Use, Respiratory Distress - GI/Abdominal Exam GI & Abdominal Exam: absent: Distended, Firm, Guarding - Neurological Exam Neurological exam: Alert, Oriented x3 - Psychiatric Exam Psychiatric exam: Normal Affect, Normal Mood - Skin Skin Exam: Dry, Intact, Warm Additional comments: No pitting edema bilaterally. Normal distal skin texture and turgor bilaterally. No jaundice. Results - Vital Signs Recent Vital Signs: Last Vital Signs Temp 99.1 F 11/09/16 07:00 Pulse 82 11/09/16 07:00 Resp 18 11/09/16 07:00 BP 162/92 H 11/09/16 07:00 Pulse Ox 95 11/09/16 07:00 - Labs Result Diagrams: 11/09/16 08:20 11/09/16 08:20 Labs: Laboratory Results - last 24 hr 11/09/16 11/09/16 08:20 08:20 WBC 13.4 H D RBC 4.47 Hgb 13.3 L Hct 39.2 L MCV 87.7 MCH 29.8 MCHC 33.9 RDW 12.8 Plt Count 291 MPV 8.8 Gran % 90.5 H Lymph % (Auto) 4.9 L [place] % (Auto) 4.3 Eos % (Auto) 0.2 L Baso % (Auto) 0.1 Gran # 12.07 H Lymph # 0.7 L [place] # 0.6 Eos # 0.0 Baso # 0.02 Neutrophils % (Manual) 90 H Lymphocytes % (Manual) 5 L Monocytes % (Manual) 5 Platelet Evaluation Normal Anisocytosis (manual) Slight Sodium 146 Potassium 4.7 Chloride 105 Carbon Dioxide 29 Anion Gap 17 BUN 15 Creatinine 1.1 Est GFR ( Amer) > 60 Est GFR (Non-Af Amer) > 60 Random Glucose 117 H Calcium 9.4 Total Bilirubin 3.0 H AST 298 H ALT 474 H Alkaline Phosphatase 386 H Total Protein 7.3 Albumin 4.1 Globulin 3.1 Albumin/Globulin Ratio 1.3 Assessment & Plan - Assessment and Plan (Free Text) Assessment: 76M with choledocholithiasis. -Possible cholecystectomy tomorrow pending results of ERCP. -anti-emetics and pain meds PRN -NPO @ [place] - medical clearance -Zosyn per ID recs. d/w Dr Kalen Seth, PGY3
[2016-11-09] MEDS ORDERED: Piperacillin/Tazobact 3.375 gm Inj IVPB ONE (14:43)
[2016-11-09] MEDS ORDERED: Midazolam 2 MG/2 ML VIAL ONE (14:45)
[2016-11-09] MEDS ORDERED: Propofol 10 mg/ml Inj (20 ML) ONE (14:45)
[2016-11-09] MEDS ORDERED: Succinylcholine 200 mg/10 ml Inj IV ONE (14:46)
[2016-11-09] MEDS ORDERED: Rocuronium 10 mg/ml (5 ml) ONE (14:46)
[2016-11-09] MEDS ORDERED: Glucagon Recombinant 1 mg Inj ONE (15:05)
[2016-11-09] MEDS ORDERED: ePHEDrine 50 mg/ml Inj ONE (15:09)
[2016-11-09] MEDS ORDERED: Neostigmine Methylsulfate 3mg/3ml Syringe IV ONE (15:23)
[2016-11-09] MEDS ORDERED: Sodium Chloride 0.9% 1,000 ML IV SCH (16:15)
[2016-11-09] MEDS ORDERED: Piperacillin/Tazobact 3.375 gm 100 ML IVPB SCH (18:00)
[2016-11-09 18:39] VITALS: RESP 18
--- NOTE | 2016-11-09 20:04 | CARD ---
APPROVED REPORT EKG Measurement Heart [id number] <Conclusion> Normal sinus rhythm Normal ECG
--- NOTE | 2016-11-09 22:15 | CP.PCM.CON ---
History of Present Illness - History of Present Illness History of Present Illness: Infectious Disease Consultation: November 09, 2016 76 yo male with mid-epigastric abdominal pain. CT scan showing dilated gallbladder and intrahepatic biliary ductal dilatation of 7mm. Possible obstructing stone. There is a 11 mm cystic focus in the right lobe of the liver. ERCP done. Suspected cholangitis. Sphincterotomy and sludge extraction done during ERCP. Continuing broad spectrum antibiotic coverage. PMHx: HTN, hyperlipidemia PSHx: tumor removal of small intestine 2002 Allergies: NKDA Social hx: tobacco 1ppd for 20 years but stopped now Social EtOH with wine No illicit drug use Active Medications Atorvastatin Calcium (Lipitor) 40 mg PO DIN [facility] Last Admin: 11/09/16 17:10 Dose: 40 mg Hydrochlorothiazide (Microzide) 12.5 mg PO DAILY [facility] Last Admin: 11/09/16 09:41 Dose: 12.5 mg Famotidine (Pepcid 20mg/50ml Premix) 20 mg in 50 mls @ 100 mls/hr IV Q12 [facility] Last Admin: 11/09/16 22:02 Dose: 100 mls/hr Piperacillin Sod/Tazobactam Sod (Zosyn 3.375 In Ns 100ml) 100 mls @ 200 mls/hr IVPB Q6 [facility] PRN Reason: Protocol Stop: 11/10/16 00:29 Last Admin: 11/09/16 17:10 Dose: Not Given Sodium Chloride (Sodium Chloride 0.9%) 1,000 mls @ 100 mls/hr IV .Q10H [facility] Losartan Potassium (Cozaar) 50 mg PO DAILY [facility] Last Admin: 11/09/16 09:41 Dose: 50 mg Morphine Sulfate (Morphine) 2 mg IVP Q4H PRN PRN Reason: Pain, severe (8-10) Ondansetron HCl (Zofran Inj) 4 mg IVP Q6H PRN PRN Reason: Nausea/Vomiting Family Hx: CABG, [place] - father ROS: abdominal pain. No nausea, vomiting, diarrhea, headaches, dizziness, chest pain , abdominal pain, melena, hematuria, hematemesis, hematochezia, depression, anxiety Past Patient History - Infectious Disease Hx of Infectious Diseases: None - Past Social History Smoking Status: Never Smoked - CARDIAC Hx Cardiac Disorders: Yes Hx Hypertension: Yes - PULMONARY Hx Respiratory Disorders: No - NEUROLOGICAL Hx Neurological Disorder: No - HEENT Hx HEENT Problems: No - RENAL Hx Chronic Kidney Disease: No - ENDOCRINE/METABOLIC Hx Endocrine Disorders: No - HEMATOLOGICAL/ONCOLOGICAL Hx Blood Disorders: No - INTEGUMENTARY Hx Dermatological Problems: No - MUSCULOSKELETAL/RHEUMATOLOGICAL Hx Musculoskeletal Disorders: No - GASTROINTESTINAL Hx Gastrointestinal Disorders: No - GENITOURINARY/GYNECOLOGICAL Hx Genitourinary Disorders: No - PSYCHIATRIC Hx Psychophysiologic Disorder: No Hx Substance Use: No - SURGICAL HISTORY Other/Comment: intestinal surgery - ANESTHESIA Hx Anesthesia: Yes Hx Anesthesia Reactions: No Hx Malignant Hyperthermia: No Meds Allergies/Adverse Reactions: Allergies Allergy/AdvReac Type Severity Reaction Status Date / Time No Known Allergies Allergy Verified 11/08/16 19:39 - Medications Medications: Current Medications Atorvastatin Calcium (Lipitor) 40 mg PO DIN [facility] Last Admin: 11/09/16 17:10 Dose: 40 mg Hydrochlorothiazide (Microzide) 12.5 mg PO DAILY [facility] Last Admin: 11/09/16 09:41 Dose: 12.5 mg Famotidine (Pepcid 20mg/50ml Premix) 20 mg in 50 mls @ 100 mls/hr IV Q12 [facility] Last Admin: 11/09/16 09:41 Dose: 100 mls/hr Piperacillin Sod/Tazobactam Sod (Zosyn 3.375 In Ns 100ml) 100 mls @ 200 mls/hr IVPB Q6 [facility] PRN Reason: Protocol Stop: 11/10/16 00:29 Last Admin: 11/09/16 17:10 Dose: Not Given Sodium Chloride (Sodium Chloride 0.9%) 1,000 mls @ 100 mls/hr IV .Q10H [facility] Losartan Potassium (Cozaar) 50 mg PO DAILY [facility] Last Admin: 11/09/16 09:41 Dose: 50 mg Morphine Sulfate (Morphine) 2 mg IVP Q4H PRN PRN Reason: Pain, severe (8-10) Ondansetron HCl (Zofran Inj) 4 mg IVP Q6H PRN PRN Reason: Nausea/Vomiting Physical Exam - Constitutional Appears: Non-toxic, No Acute Distress, Chronically Ill - Head Exam Head Exam: ATRAUMATIC, NORMOCEPHALIC - Eye Exam Eye Exam: EOMI, PERRL Pupil Exam: NORMAL ACCOMODATION, PERRL - ENT Exam ENT Exam: Mucous Membranes Moist, Normal External Ear Exam, TM's Normal Bilaterally - Neck Exam Neck exam: Positive for: Full Rom, Normal Inspection - Respiratory Exam Respiratory Exam: Clear to Auscultation Bilateral, NORMAL BREATHING PATTERN. absent: Rales, Rhonchi, Wheezes - Cardiovascular Exam Cardiovascular Exam: REGULAR RHYTHM, RRR, +S1, +S2 - GI/Abdominal Exam GI & Abdominal Exam: Normal Bowel Sounds, Soft, Tenderness. absent: Distended Additional comments: mid epigastric abdominal pain. - Extremities Exam Extremities exam: Positive for: full ROM, normal inspection - Neurological Exam Neurological exam: Alert, CN II-XII Intact, Oriented x3 - Psychiatric Exam Psychiatric exam: Normal Affect, Normal Mood - Skin Skin Exam: Intact, Normal Color Results - Vital Signs Recent Vital Signs: Last Vital Signs Temp 98.6 F 11/09/16 17:18 Pulse 65 11/09/16 17:18 Resp 18 11/09/16 17:18 BP 150/76 11/09/16 17:18 Pulse Ox 95 11/09/16 17:18 - Labs Result Diagrams: 11/09/16 08:20 11/09/16 08:20 Labs: Laboratory Results - last 24 hr 11/09/16 11/09/16 11/09/16 08:20 08:20 08:20 WBC 13.4 H D RBC 4.47 Hgb 13.3 L Hct 39.2 L MCV 87.7 MCH 29.8 MCHC 33.9 RDW 12.8 Plt Count 291 MPV 8.8 Gran % 90.5 H Lymph % (Auto) 4.9 L [place] % (Auto) 4.3 Eos % (Auto) 0.2 L Baso % (Auto) 0.1 Gran # 12.07 H Lymph # 0.7 L [place] # 0.6 Eos # 0.0 Baso # 0.02 Neutrophils % (Manual) 90 H Lymphocytes % (Manual) 5 L Monocytes % (Manual) 5 Platelet Evaluation Normal Anisocytosis (manual) Slight Sodium 146 Potassium 4.7 Chloride 105 Carbon Dioxide 29 Anion Gap 17 BUN 15 Creatinine 1.1 Est GFR ( Amer) > 60 Est GFR (Non-Af Amer) > 60 Random Glucose 117 H Calcium 9.4 Total Bilirubin 3.0 H AST 298 H ALT 474 H Alkaline Phosphatase 386 H Total Protein 7.3 Albumin 4.1 Globulin 3.1 Albumin/Globulin Ratio 1.3 Hepatitis A IgM Ab Negative Hep Bs Antigen Negative Hep B Core IgM Ab Negative Hepatitis C Antibody Negative Assessment & Plan - Assessment and Plan (Free Text) Assessment: 76 yo male with history of hypertension and dyslipidemia presenting with worsening abdominal pain. CT showing dilated CBD and possible cholangitis. ERCP done for sludge removal and sphincterotomy. On Zosyn for IV antibiotic coverage which is adequate. Hoffman cultures sent. Supportive care. Thank you for allowing me to participate in the care of the patient, we will follow with you.
[2016-11-09] MEDS: Piperacillin/Tazobact 3.375 gm 100 ML IVPB SCH (23:54)
[2016-11-10] MEDS: Piperacillin/Tazobact 3.375 gm 100 ML IVPB SCH (05:51)
[2016-11-10 07:03] LABS: ALB/GLOB RATIO 1.2 (1.1-1.8); ALKALINE PHOSPHATASE 308 U/L (38-133); ALT/SGPT 296 U/L (7-56); AST/SGOT 117 U/L (15-59); BILIRUBIN,DIRECT 2.3 mg/dL (0.0-0.4); BLOOD UREA NITROGEN 20 mg/dL (7-21); CALCIUM 8.8 mg/dL (8.4-10.5); CARBON DIOXIDE 28 mmol/L (21-33); CHLORIDE 106 mmol/L (98-107); GFR AFRICAN-AMERICAN > 60; GLUCOSE,RANDOM 99 mg/dL (70-110); POTASSIUM 4.5 mmol/L (3.6-5.0); SODIUM 144 mmol/L (132-148); TOTAL PROTEIN 6.1 g/dL (5.8-8.3)
[2016-11-10 07:07] LABS: BASO # 0.01 K/mm3 (0.0-2.0); BASO % 0.1 % (0.0-3.0); EOS # 0.1 (0.0-0.7); EOS % 0.7 % (1.5-5.0); GRAN # 5.39 (1.4-6.5); GRAN % 79.9 % (50.0-68.0); HEMATOCRIT 33.1 % (42.0-52.0); LYMPH # 0.8 (1.2-3.4); LYMPH % 11.8 % (22.0-35.0); MEAN CELL VOLUME 88.7 fl (80.0-105.0); MEAN CORPUSCULAR HGB CONC 32.6 g/dl (31.0-37.0); MONO # 0.5 (0.1-0.6); MONO % 7.5 % (1.0-6.0); RED CELL DISTRIBUTION WIDTH 13.3 % (11.5-14.5); WHITE BLOOD COUNT 6.8 10^3/ul (4.5-11.0)
--- NOTE | 2016-11-10 08:05 | CP.PCM.PN ---
Subjective - Date & Time of Evaluation Date of Evaluation: 11/10/16 Time of Evaluation: 07:30 - Subjective Subjective: Patient seen and examined. Patient is resting comfortably in bed. No acute events overnight. Offers no new complaints at this time. Tolerating diet. Denies fever, chills, chest pain, SOB, abdominal pain, N/V. Objective - Vital Signs/Intake and Output Vital Signs (last 24 hours): Temp Pulse Resp BP Pulse Ox 98.6 F 65 18 150/76 95 11/09/16 17:18 11/09/16 17:18 11/09/16 17:18 11/09/16 17:18 11/09/16 17:18 Intake and Output: 11/10/16 11/10/16 06:59 18:59 Intake Total 1200 Output Total 200 Balance 1000 - Medications Medications: Current Medications Atorvastatin Calcium (Lipitor) 40 mg PO DIN [facility] Last Admin: 11/09/16 17:10 Dose: 40 mg Hydrochlorothiazide (Microzide) 12.5 mg PO DAILY [facility] Last Admin: 11/09/16 09:41 Dose: 12.5 mg Famotidine (Pepcid 20mg/50ml Premix) 20 mg in 50 mls @ 100 mls/hr IV Q12 [facility] Last Admin: 11/09/16 22:02 Dose: 100 mls/hr Sodium Chloride (Sodium Chloride 0.9%) 1,000 mls @ 100 mls/hr IV .Q10H [facility] Piperacillin Sod/Tazobactam Sod (Zosyn 3.375 In Ns 100ml) 100 mls @ 200 mls/hr IVPB Q6 [facility] PRN Reason: Protocol Last Admin: 11/10/16 05:51 Dose: 200 mls/hr Losartan Potassium (Cozaar) 50 mg PO DAILY [facility] Last Admin: 11/09/16 09:41 Dose: 50 mg Morphine Sulfate (Morphine) 2 mg IVP Q4H PRN PRN Reason: Pain, severe (8-10) Ondansetron HCl (Zofran Inj) 4 mg IVP Q6H PRN PRN Reason: Nausea/Vomiting - Labs Labs: 11/10/16 06:12 11/10/16 06:12 PT 11.1 Seconds (9.9-11.8) 11/08/16 20:05 INR 1.03 (0.93-1.08) 11/08/16 20:05 APTT 25.7 Seconds (23.7-30.8) 11/08/16 20:05 - Additional Findings Additional findings: - Constitutional Appears: Non-toxic, No Acute Distress - Head Exam Head Exam: ATRAUMATIC, NORMAL INSPECTION, NORMOCEPHALIC - Eye Exam Eye Exam: Normal appearance. absent: Conjunctival injection, Periorbital swelling, Scleral icterus - ENT Exam ENT Exam: Mucous Membranes Moist - Respiratory Exam Respiratory Exam: NORMAL BREATHING PATTERN. absent: Accessory Muscle Use, Respiratory Distress - GI/Abdominal Exam GI & Abdominal Exam: absent: Distended, Firm, Guarding - Neurological Exam Neurological exam: Alert, Oriented x3, responds to verbal stimuli, and is answering questions appropriately - Psychiatric Exam Psychiatric exam: Normal Affect, Normal Mood - Skin Skin Exam: Dry, Intact, Warm Assessment and Plan - Assessment and Plan (Free Text) Assessment: 76M with choledocholithiasis s/p ERCP with balloon extraction of stones POD # 1 - no surgical intervention at this time - anti-emetics and pain meds PRN - diet as per GI recs -Zosyn per ID recs will d/w Dr Higuera
--- NOTE | 2016-11-10 08:18 | CP.PCM.PN ---
<Jacy Turner - Last Filed: 11/10/16 10:42> Subjective - Date & Time of Evaluation Date of Evaluation: 11/10/16 Time of Evaluation: 08:14 - Subjective Subjective: Gastroenterology Fellow/PGY5 Progress Note Patient denies abdominal pain. Tolerated clear liquid diet. No bowel movement yesterday. A 12-point review of systems negative except for as above. Objective - Vital Signs/Intake and Output Vital Signs (last 24 hours): Temp Pulse Resp BP Pulse Ox 98.6 F 65 18 150/76 95 11/09/16 17:18 11/09/16 17:18 11/09/16 17:18 11/09/16 17:18 11/09/16 17:18 Intake and Output: 11/10/16 11/10/16 06:59 18:59 Intake Total 1200 Output Total 200 Balance 1000 - Medications Medications: Current Medications Atorvastatin Calcium (Lipitor) 40 mg PO DIN [facility] Last Admin: 11/09/16 17:10 Dose: 40 mg Hydrochlorothiazide (Microzide) 12.5 mg PO DAILY [facility] Last Admin: 11/09/16 09:41 Dose: 12.5 mg Famotidine (Pepcid 20mg/50ml Premix) 20 mg in 50 mls @ 100 mls/hr IV Q12 [facility] Last Admin: 11/09/16 22:02 Dose: 100 mls/hr Sodium Chloride (Sodium Chloride 0.9%) 1,000 mls @ 100 mls/hr IV .Q10H [facility] Piperacillin Sod/Tazobactam Sod (Zosyn 3.375 In Ns 100ml) 100 mls @ 200 mls/hr IVPB Q6 [facility] PRN Reason: Protocol Last Admin: 11/10/16 05:51 Dose: 200 mls/hr Losartan Potassium (Cozaar) 50 mg PO DAILY [facility] Last Admin: 11/09/16 09:41 Dose: 50 mg Morphine Sulfate (Morphine) 2 mg IVP Q4H PRN PRN Reason: Pain, severe (8-10) Ondansetron HCl (Zofran Inj) 4 mg IVP Q6H PRN PRN Reason: Nausea/Vomiting - Labs Labs: 11/10/16 06:12 11/10/16 06:12 PT 11.1 Seconds (9.9-11.8) 11/08/16 20:05 INR 1.03 (0.93-1.08) 11/08/16 20:05 APTT 25.7 Seconds (23.7-30.8) 11/08/16 20:05 - Constitutional Appears: Non-toxic, No Acute Distress - Head Exam Head Exam: ATRAUMATIC, NORMOCEPHALIC - Eye Exam Eye Exam: EOMI, PERRL Pupil Exam: PERRL. absent: Miosis, Mydriatic - ENT Exam ENT Exam: Mucous Membranes Moist, Normal Oropharynx - Neck Exam Neck Exam: Full ROM, Normal Inspection - Respiratory Exam Respiratory Exam: Clear to Ausculation Bilateral. absent: Rales, Rhonchi, Wheezes - Cardiovascular Exam Cardiovascular Exam: RRR, +S1, +S2. absent: Gallop, Rubs - GI/Abdominal Exam GI & Abdominal Exam: Soft, Normal Bowel Sounds. absent: Distended, Firm, Guarding, Rigid, Tenderness, Organomegaly, Rebound - Extremities Exam Extremities Exam: Normal Inspection. absent: Pedal Edema - Neurological Exam Neurological Exam: Alert, Awake - Psychiatric Exam Psychiatric exam: Normal Affect, Normal Mood - Skin Skin Exam: Dry, Intact, Normal Color, Warm Assessment and Plan - Assessment and Plan (Free Text) Assessment: 76 year old male with history of Hypertension, Hyperlipidemia, and prior small bowel tumor removal 2002 presenting with abdominal pain. Active treatment of choledocholithiasis POD1 ERCP with sphincterotomy, balloon sweep with sludge and pus extraction. No prior EGD or colonoscopy. Plan: >stone likely passed prior to undergoing ERCP >no signs of post-ERCP pancreatitis >tolerated low fat diet >LFTs improving >continue Levaquin 500mg for 10 days >follow up with Dr. Rivera in two weeks for repeat LFTs <Jesse Oconnell - Last Filed: 11/10/16 11:26> Objective - Vital Signs/Intake and Output Vital Signs (last 24 hours): Temp Pulse Resp BP Pulse Ox 98.2 F 60 18 143/68 96 11/10/16 08:24 11/10/16 08:24 11/10/16 08:24 11/10/16 08:24 11/10/16 08:24 Intake and Output: 11/10/16 11/10/16 06:59 18:59 Intake Total 1200 Output Total 200 Balance 1000 - Medications Medications: Current Medications Atorvastatin Calcium (Lipitor) 40 mg PO DIN [facility] Last Admin: 11/09/16 17:10 Dose: 40 mg Hydrochlorothiazide (Microzide) 12.5 mg PO DAILY [facility] Last Admin: 11/10/16 09:29 Dose: 12.5 mg Famotidine (Pepcid 20mg/50ml Premix) 20 mg in 50 mls @ 100 mls/hr IV Q12 [facility] Last Admin: 11/10/16 09:29 Dose: 100 mls/hr Sodium Chloride (Sodium Chloride 0.9%) 1,000 mls @ 100 mls/hr IV .Q10H [facility] Piperacillin Sod/Tazobactam Sod (Zosyn 3.375 In Ns 100ml) 100 mls @ 200 mls/hr IVPB Q6 [facility] PRN Reason: Protocol Last Admin: 11/10/16 05:51 Dose: 200 mls/hr Losartan Potassium (Cozaar) 50 mg PO DAILY [facility] Last Admin: 11/10/16 09:29 Dose: 50 mg Morphine Sulfate (Morphine) 2 mg IVP Q4H PRN PRN Reason: Pain, severe (8-10) Ondansetron HCl (Zofran Inj) 4 mg IVP Q6H PRN PRN Reason: Nausea/Vomiting - Labs Labs: 11/10/16 06:12 11/10/16 06:12 PT 11.1 Seconds (9.9-11.8) 11/08/16 20:05 INR 1.03 (0.93-1.08) 11/08/16 20:05 APTT 25.7 Seconds (23.7-30.8) 11/08/16 20:05 Attending/Attestation - Attestation I have personally seen and examined this patient.: Yes I have fully participated in the care of the patient.: Yes I have reviewed all pertinent clinical information, including history, physical exam and plan: Yes Notes (Text): 11/10/16 11:23 I have seen and examined patient with GI fellow. No acute events overnight. He denies abdominal pain, nausea, vomiting, fever/chills. Tolerating PO diet without difficulty. s/p ERCP yesterday with sphincterotomy. HTN Hyperlipidemia Abdominal pain, transaminitis - suspected cholangitis s/p ERCP with sludge extraction and sphincterotomy - Low fat diet as tolerated - LFTs trending down, continue to monitor - Continue with antibiotic therapy to complete 10 day course - Follow up surgical recommendations regarding timing of potential cholecystectomy - No further planned GI intervention, from GI perspective ok to discharge patient home with subsequent follow up, to be scheduled with Dr. Rivera. Will sign off case, please reconsult as necessary, thank you.
[2016-11-10 08:26] VITALS: BP 143/68; PULSE 60; TEMP 98.2; O2SAT 96
[2016-11-10] MEDS: Famotidine 20mg/50ml 20 MG/50 ML BAG IV SCH (09:29)
--- NOTE | 2016-11-10 16:07 | CP.PCM.PN ---
Subjective - Date & Time of Evaluation Date of Evaluation: 11/10/16 Time of Evaluation: 12:00 - Subjective Subjective: Infectious Disease Follow Up: November 10, 2016 76 yo male with mid-epigastric abdominal pain. CT scan showing dilated gallbladder and intrahepatic biliary ductal dilatation of 7mm. Possible obstructing stone. There is a 11 mm cystic focus in the right lobe of the liver. ERCP done. Suspected cholangitis. Sphincterotomy and sludge extraction done during ERCP. Continuing broad spectrum antibiotic coverage. Overall the patient has shown overall improvement and feels comfortable now. Objective - Vital Signs/Intake and Output Vital Signs (last 24 hours): Temp Pulse Resp BP Pulse Ox 98.2 F 60 18 143/68 96 11/10/16 08:24 11/10/16 08:24 11/10/16 08:24 11/10/16 08:24 11/10/16 08:24 Intake and Output: 11/10/16 11/10/16 06:59 18:59 Intake Total 1200 Output Total 200 Balance 1000 - Labs Labs: 11/10/16 06:12 11/10/16 06:12 PT 11.1 Seconds (9.9-11.8) 11/08/16 20:05 INR 1.03 (0.93-1.08) 11/08/16 20:05 APTT 25.7 Seconds (23.7-30.8) 11/08/16 20:05 - Constitutional Appears: Non-toxic, No Acute Distress - Head Exam Head Exam: ATRAUMATIC, NORMOCEPHALIC - Eye Exam Eye Exam: EOMI, PERRL Pupil Exam: NORMAL ACCOMODATION, PERRL - ENT Exam ENT Exam: Mucous Membranes Moist, Normal External Ear Exam, TM's Normal Bilaterally - Neck Exam Neck Exam: Full ROM, Normal Inspection - Respiratory Exam Respiratory Exam: Clear to Ausculation Bilateral, NORMAL BREATHING PATTERN. absent: Rales, Rhonchi, Wheezes - Cardiovascular Exam Cardiovascular Exam: REGULAR RHYTHM, RRR, +S1, +S2 - GI/Abdominal Exam GI & Abdominal Exam: Soft, Tenderness, Normal Bowel Sounds. absent: Distended Additional comments: mid epigastric abdominal pain that has improved. - Extremities Exam Extremities Exam: Full ROM, Normal Inspection - Neurological Exam Neurological Exam: Alert, Awake, CN II-XII Intact, Oriented x3 - Psychiatric Exam Psychiatric exam: Normal Affect, Normal Mood - Skin Skin Exam: Intact, Normal Color Assessment and Plan - Assessment and Plan (Free Text) Assessment: 76 yo male with history of hypertension and dyslipidemia presenting with worsening abdominal pain. CT showing dilated CBD and possible cholangitis. ERCP done for sludge removal and sphincterotomy. On Zosyn for IV antibiotic coverage which is adequate. Hoffman cultures sent. Supportive care. Patient feeling better. Can consider discharge with oral Keflex or oral Cipro for 5-7 days. Thank you for allowing me to participate in the care of the patient, we will follow with you.
--- NOTE | 2016-11-10 17:06 | CP.PCM.PN ---
Subjective - Date & Time of Evaluation Date of Evaluation: 11/10/16 Time of Evaluation: 17:05 Objective - Vital Signs/Intake and Output Vital Signs (last 24 hours): Temp Pulse Resp BP Pulse Ox 98.2 F 60 18 143/68 96 11/10/16 08:24 11/10/16 08:24 11/10/16 08:24 11/10/16 08:24 11/10/16 08:24 Intake and Output: 11/10/16 11/10/16 06:59 18:59 Intake Total 1200 Output Total 200 Balance 1000 - Labs Labs: 11/10/16 06:12 11/10/16 06:12 PT 11.1 Seconds (9.9-11.8) 11/08/16 20:05 INR 1.03 (0.93-1.08) 11/08/16 20:05 APTT 25.7 Seconds (23.7-30.8) 11/08/16 20:05
--- NOTE | 2016-11-10 17:59 | CP.PCM.DIS ---
<PaoCynthia - Last Filed: 11/10/16 18:01> Provider - Provider Date of Admission: 11/09/16 00:23 Attending physician: Sussy Garcia MD Primary care physician: Jason Jones MD Consults: Dr. Higuera - surgery Dr. Rodriguez - [facility] EL[facility] Time Spent in preparation of Discharge (in minutes): 35 Hospital Course - Lab Results Lab Results: Most Recent Lab Values WBC 6.8 10^3/ul (4.5-11.0) D 11/10/16 06:12 RBC 3.73 10^6/uL (3.5-6.1) 11/10/16 06:12 Hgb 10.8 g/dL (14.0-18.0) L D 11/10/16 06:12 Hct 33.1 % (42.0-52.0) L 11/10/16 06:12 MCV 88.7 fl (80.0-105.0) 11/10/16 06:12 MCH 29.0 pg (25.0-35.0) 11/10/16 06:12 MCHC 32.6 g/dl (31.0-37.0) 11/10/16 06:12 RDW 13.3 % (11.5-14.5) 11/10/16 06:12 Plt Count 278 10^3/uL (120.0-450.0) 11/10/16 06:12 MPV 9.0 fl (7.0-11.0) 11/10/16 06:12 Gran % 79.9 % (50.0-68.0) H 11/10/16 06:12 Lymph % (Auto) 11.8 % (22.0-35.0) L 11/10/16 06:12 [place] % (Auto) 7.5 % (1.0-6.0) H 11/10/16 06:12 Eos % (Auto) 0.7 % (1.5-5.0) L 11/10/16 06:12 Baso % (Auto) 0.1 % (0.0-3.0) 11/10/16 06:12 Gran # 5.39 (1.4-6.5) 11/10/16 06:12 Lymph # 0.8 (1.2-3.4) L 11/10/16 06:12 [place] # 0.5 (0.1-0.6) 11/10/16 06:12 Eos # 0.1 (0.0-0.7) 11/10/16 06:12 Baso # 0.01 K/mm3 (0.0-2.0) 11/10/16 06:12 Neutrophils % (Manual) 90 % (50.0-70.0) H 11/09/16 08:20 Lymphocytes % (Manual) 5 % (22.0-35.0) L 11/09/16 08:20 Monocytes % (Manual) 5 % (1.0-6.0) 11/09/16 08:20 Platelet Evaluation Normal (NORMAL) 11/09/16 08:20 Anisocytosis (manual) Slight 11/09/16 08:20 PT 11.1 Seconds (9.9-11.8) 11/08/16 20:05 INR 1.03 (0.93-1.08) 11/08/16 20:05 APTT 25.7 Seconds (23.7-30.8) 11/08/16 20:05 Sodium 144 mmol/L (132-148) 11/10/16 06:12 Potassium 4.5 mmol/L (3.6-5.0) 11/10/16 06:12 Chloride 106 mmol/L (98-107) 11/10/16 06:12 Carbon Dioxide 28 mmol/L (21-33) 11/10/16 06:12 Anion Gap 15 (10-20) 11/10/16 06:12 BUN 20 mg/dL (7-21) 11/10/16 06:12 Creatinine 1.3 mg/dL (0.5-1.4) 11/10/16 06:12 Est GFR ( Amer) > 60 11/10/16 06:12 Est GFR (Non-Af Amer) 54 11/10/16 06:12 Random Glucose 99 mg/dL (70-110) 11/10/16 06:12 Calcium 8.8 mg/dL (8.4-10.5) 11/10/16 06:12 Total Bilirubin 3.0 mg/dL (0.2-1.3) H 11/10/16 06:12 Direct Bilirubin 2.3 mg/dL (0.0-0.4) H 11/10/16 06:12 AST 117 U/L (15-59) H 11/10/16 06:12 ALT 296 U/L (7-56) H 11/10/16 06:12 Alkaline Phosphatase 308 U/L (38-133) H 11/10/16 06:12 Lactate Dehydrogenase 1534 U/L (333-699) H 11/08/16 20:05 Total Creatine Kinase 61 U/L (35-230) 11/08/16 20:05 Troponin I < 0.01 ng/mL 11/08/16 20:05 Total Protein 6.1 g/dL (5.8-8.3) 11/10/16 06:12 Albumin 3.4 g/dL (3.0-4.8) 11/10/16 06:12 Globulin 2.8 gm/dL 11/10/16 06:12 Albumin/Globulin Ratio 1.2 (1.1-1.8) 11/10/16 06:12 Lipase 161 U/L (23-300) 11/08/16 20:05 Urine Color Yellow (YELLOW) 11/08/16 22:40 Urine Appearance Clear (CLEAR) 11/08/16 22:40 Urine pH 7.0 (4.7-8.0) 11/08/16 22:40 Ur Specific [place] 1.015 (1.005-1.035) 11/08/16 22:40 Urine Protein Negative mg/dL (<30 mg/dL) 11/08/16 22:40 Urine Glucose (UA) Negative mg/dL (NEGATIVE) 11/08/16 22:40 Urine Ketones Negative mg/dL (NEGATIVE) 11/08/16 22:40 Urine Blood Negative (NEGATIVE) 11/08/16 22:40 Urine Nitrate Negative (NEGATIVE) 11/08/16 22:40 Urine Bilirubin Negative (NEGATIVE) 11/08/16 22:40 Urine Urobilinogen 0.2 E.U./dL (<1 E.U./dL) 11/08/16 22:40 Ur Leukocyte Esterase Negative George/uL (NEGATIVE) 11/08/16 22:40 Hepatitis A IgM Ab Negative (NEGATIVE) 11/09/16 08:20 Hep Bs Antigen Negative (NEGATIVE) 11/09/16 08:20 Hep B Core IgM Ab Negative (NEGATIVE) 11/09/16 08:20 Hepatitis C Antibody Negative (NEGATIVE) 11/09/16 08:20 - Hospital Course Hospital Course: Discharge Summary for Dr. Garcia Patient is a 76 year old male with past medical history significant for HLD and HTN who presents complaining of mid-epigastric abdominal pain. CT abdomen shows evidence of stone in CBD with right hepatic lobe present. Patient will be admitted for observation and evaluation by GI. Patient was worked up and found to have choledocholithiasis. During the patient's stay, Dr. Oconnell did a ERCP POD#2 with sphincterotomy, balloon sweep with sludge and pus extraction. Patient and family did not want a cholecystectomy at the time. Patient was told he can schedule for outpatient cholecystectomy if he wishes. Patient is stable for discharge. Patient s&E at bedside today. No acute events overnight. patient states he feels ready to go home. No further medical management needed at this time. Patient sent home on antibiotics 10 days of Levoquin, to follow up with Public Speaker, PMD, and Surgeon in one week. to return to ED if symptoms worsen. - Date & Time of H&P Date of H&P: 11/10/16 Time of H&P: 17:57 Discharge Exam - Head Exam Head Exam: ATRAUMATIC, NORMOCEPHALIC - Eye Exam Eye Exam: EOMI, Normal appearance - ENT Exam ENT Exam: Mucous Membranes Moist - Neck Exam Neck exam: Full Rom - Respiratory Exam Respiratory Exam: NORMAL BREATHING PATTERN. absent: Accessory Muscle Use, Respiratory Distress - Cardiovascular Exam Cardiovascular Exam: REGULAR RHYTHM. absent: Bradycardia, Tachycardia - GI/Abdominal Exam GI & Abdominal Exam: Normal Bowel Sounds - Extremities Exam Extremities exam: full ROM - Back Exam Back exam: FULL ROM. absent: CVA tenderness (L), CVA tenderness (R) - Neurological Exam Neurological exam: Alert, Oriented x3 - Psychiatric Exam Psychiatric exam: Normal Affect, Normal Mood - Skin Skin Exam: Dry, Normal Color, Warm Discharge Plan - Discharge Medications Prescriptions: Levofloxacin [Levaquin] 500 mg PO DAILY #10 tablet - Follow Up Plan Condition: STABLE Disposition: HOME/ ROUTINE Instructions: Gallstones (DC), Pneumococcal Vaccine for Adults (DC), Low Fat Diet (DC), ERCP (Endoscopic Retrograde Cholangiopancreatography) (DC) Additional Instructions: 1) follow up with Primary Care doctor within 1 week. follow up LFTs outpatient, follow up with primary care doctor for this 2) continue Levoquin 500mg POQD 3) monitor for worsening signs of abdominal pain, nausea, vomiting or if drain puts out purulent material. 4) follow up 1-2 weeks with general surgery to schedule elective cholecystectomy and for drain removal instructions for proper drain management done by surgery team in hospital. 5) follow up with Public Speaker in 1 week. Referrals: Jason Jones MD [Primary Care Provider] - <Sussy Garcia - Last Filed: 11/11/16 07:31> Provider - Provider Date of Admission: 11/09/16 00:23 Attending physician: Sussy Garcia MD Primary care physician: Jason Jones MD Hospital Course - Lab Results Lab Results: Most Recent Lab Values WBC 6.8 10^3/ul (4.5-11.0) D 11/10/16 06:12 RBC 3.73 10^6/uL (3.5-6.1) 11/10/16 06:12 Hgb 10.8 g/dL (14.0-18.0) L D 11/10/16 06:12 Hct 33.1 % (42.0-52.0) L 11/10/16 06:12 MCV 88.7 fl (80.0-105.0) 11/10/16 06:12 MCH 29.0 pg (25.0-35.0) 11/10/16 06:12 MCHC 32.6 g/dl (31.0-37.0) 11/10/16 06:12 RDW 13.3 % (11.5-14.5) 11/10/16 06:12 Plt Count 278 10^3/uL (120.0-450.0) 11/10/16 06:12 MPV 9.0 fl (7.0-11.0) 11/10/16 06:12 Gran % 79.9 % (50.0-68.0) H 11/10/16 06:12 Lymph % (Auto) 11.8 % (22.0-35.0) L 11/10/16 06:12 [place] % (Auto) 7.5 % (1.0-6.0) H 11/10/16 06:12 Eos % (Auto) 0.7 % (1.5-5.0) L 11/10/16 06:12 Baso % (Auto) 0.1 % (0.0-3.0) 11/10/16 06:12 Gran # 5.39 (1.4-6.5) 11/10/16 06:12 Lymph # 0.8 (1.2-3.4) L 11/10/16 06:12 [place] # 0.5 (0.1-0.6) 11/10/16 06:12 Eos # 0.1 (0.0-0.7) 11/10/16 06:12 Baso # 0.01 K/mm3 (0.0-2.0) 11/10/16 06:12 Neutrophils % (Manual) 90 % (50.0-70.0) H 11/09/16 08:20 Lymphocytes % (Manual) 5 % (22.0-35.0) L 11/09/16 08:20 Monocytes % (Manual) 5 % (1.0-6.0) 11/09/16 08:20 Platelet Evaluation Normal (NORMAL) 11/09/16 08:20 Anisocytosis (manual) Slight 11/09/16 08:20 PT 11.1 Seconds (9.9-11.8) 11/08/16 20:05 INR 1.03 (0.93-1.08) 11/08/16 20:05 APTT 25.7 Seconds (23.7-30.8) 11/08/16 20:05 Sodium 144 mmol/L (132-148) 11/10/16 06:12 Potassium 4.5 mmol/L (3.6-5.0) 11/10/16 06:12 Chloride 106 mmol/L (98-107) 11/10/16 06:12 Carbon Dioxide 28 mmol/L (21-33) 11/10/16 06:12 Anion Gap 15 (10-20) 11/10/16 06:12 BUN 20 mg/dL (7-21) 11/10/16 06:12 Creatinine 1.3 mg/dL (0.5-1.4) 11/10/16 06:12 Est GFR ( Amer) > 60 11/10/16 06:12 Est GFR (Non-Af Amer) 54 11/10/16 06:12 Random Glucose 99 mg/dL (70-110) 11/10/16 06:12 Calcium 8.8 mg/dL (8.4-10.5) 11/10/16 06:12 Total Bilirubin 3.0 mg/dL (0.2-1.3) H 11/10/16 06:12 Direct Bilirubin 2.3 mg/dL (0.0-0.4) H 11/10/16 06:12 AST 117 U/L (15-59) H 11/10/16 06:12 ALT 296 U/L (7-56) H 11/10/16 06:12 Alkaline Phosphatase 308 U/L (38-133) H 11/10/16 06:12 Lactate Dehydrogenase 1534 U/L (333-699) H 11/08/16 20:05 Total Creatine Kinase 61 U/L (35-230) 11/08/16 20:05 Troponin I < 0.01 ng/mL 11/08/16 20:05 Total Protein 6.1 g/dL (5.8-8.3) 11/10/16 06:12 Albumin 3.4 g/dL (3.0-4.8) 11/10/16 06:12 Globulin 2.8 gm/dL 11/10/16 06:12 Albumin/Globulin Ratio 1.2 (1.1-1.8) 11/10/16 06:12 Lipase 161 U/L (23-300) 11/08/16 20:05 Urine Color Yellow (YELLOW) 11/08/16 22:40 Urine Appearance Clear (CLEAR) 11/08/16 22:40 Urine pH 7.0 (4.7-8.0) 11/08/16 22:40 Ur Specific [place] 1.015 (1.005-1.035) 11/08/16 22:40 Urine Protein Negative mg/dL (<30 mg/dL) 11/08/16 22:40 Urine Glucose (UA) Negative mg/dL (NEGATIVE) 11/08/16 22:40 Urine Ketones Negative mg/dL (NEGATIVE) 11/08/16 22:40 Urine Blood Negative (NEGATIVE) 11/08/16 22:40 Urine Nitrate Negative (NEGATIVE) 11/08/16 22:40 Urine Bilirubin Negative (NEGATIVE) 11/08/16 22:40 Urine Urobilinogen 0.2 E.U./dL (<1 E.U./dL) 11/08/16 22:40 Ur Leukocyte Esterase Negative [place]/uL (NEGATIVE) 11/08/16 22:40 Hepatitis A IgM Ab Negative (NEGATIVE) 11/09/16 08:20 Hep Bs Antigen Negative (NEGATIVE) 11/09/16 08:20 Hep B Core IgM Ab Negative (NEGATIVE) 11/09/16 08:20 Hepatitis C Antibody Negative (NEGATIVE) 11/09/16 08:20 Attending/Attestation - Attestation I have personally seen and examined this patient.: Yes I have fully participated in the care of the patient.: Yes I have reviewed all pertinent clinical information, including history, physical exam and plan: Yes Notes (Text): 11/10/16 76 year old male with past medical history of hypertension and dyslipidemia who presented with abdominal pain and elevated LFTs. CT abd/pelvis showed evidence of stone in CBD with right hepatic lobe. He was seen by GI and underwent ERCP. He is s/p ERCP with sphincterotomy, balloon sweep with sludge and pus extraction. He was seen by surgery as well who recommended elective cholecystectomy at the time. His symptoms improved. LFTs have improved as well. Patient is discharged home to follow up with his pmd. Follow up with GI and surgery. Continue with antibiotics as prescribed. Monitor LFTs as outpatient. Hospital course was discussed with pmd Dr. Jones. Sussy Garcia MD Hospitalist.
--- NOTE | 2016-12-01 13:38 | RAD ---
PROCEDURE: ERCP HISTORY: ? CBD OBST COMPARISON: TECHNIQUE: Fluoroscopy was provided in the endoscopy suite. 116 seconds of fluoro time. A single image was submitted FINDINGS: The image shows a wire in the common duct and hepatic duct IMPRESSION: As above
== END 2016-11-10 13:52 | disposition home or self-care (01) | DRG 446 ==
LOC: ED 19:10 → ERH 11-09 00:23 → 5RNO 11-09 01:59
PROVIDERS: ADMIT Internal Medicine; ATTEND Internal Medicine
PROC: 0FC98ZZ Extirpation of Matter from Common Bile Duct, Via Natural or Artificial Opening Endoscopic (ICD-10-PCS; principal; 2016-11-09 15:30)
DX: K80.50 Calculus of bile duct without cholangitis or cholecystitis without obstruction (principal); N28.1 Cyst of kidney, acquired; I10 Essential (primary) hypertension; K57.30 Diverticulosis of large intestine without perforation or abscess without bleeding; E78.5 Hyperlipidemia, unspecified; G47.00 Insomnia, unspecified; K40.20 Bilateral inguinal hernia, without obstruction or gangrene, not specified as recurrent; Z87.891 Personal history of nicotine dependence

== ENCOUNTER 2017-09-20 06:13 | Day surgery (SDC) | payer MEDICARE, OTHER ==
[2017-09-20 06:48] VITALS: BMI 25.6
[2017-09-20 06:54] VITALS: O2SAT 99
[2017-09-20] MEDS ORDERED: Iohexol 240 (50 ml) ONE (07:27)
[2017-09-20] MEDS ORDERED: Propofol 10 mg/ml Inj (20 ML) ONE (07:27)
[2017-09-20] MEDS ORDERED: Midazolam 2 MG/2 ML VIAL ONE (07:27)
[2017-09-20] MEDS ORDERED: Bupivacaine 0.5% Inj(30mL) ONE (07:27)
[2017-09-20] MEDS ORDERED: Rocuronium 10 mg/ml (5 ml) ONE (07:34)
[2017-09-20] MEDS ORDERED: Phenylephrine 10 mg/ml Inj ONE (07:34)
[2017-09-20] MEDS ORDERED: Glycopyrrolate 0.2 mg/ml (2ml vial) ONE (09:18)
[2017-09-20] MEDS ORDERED: Neostigmine Methylsulfate 3mg/3ml Syringe IV ONE (09:23)
[2017-09-20] MEDS ORDERED: Desflurane Inhalation Anesthetic Liq (240 ml) ONE (09:25)
[2017-09-20] MEDS ORDERED: Labetalol 5 mg/ml Inj 20ML ONE (09:57)
[2017-09-20] MEDS ORDERED: Lactated Ringer's 1,000 ML IV SCH (10:00)
--- NOTE | 2017-09-20 10:02 | PCM.SURG1 ---
Surgeon's Initial Post Op Note - Surgeon's Notes Surgeon: Dr. Anglin [employer] Delivery Service Pricer: Dr. Diaz PGY-3 Type of Anesthesia: General Endo Anesthesia Administered By: Dr. Fernandez Pre-Operative Diagnosis: Symptomatic Cholelithiasis Operative Findings: See operative report Post-Operative Diagnosis: Same Operation Performed: Laparoscopic Cholecystectomy with lysis of dense adhesions , Intraoperative cholangiogram Specimen/Specimens Removed: Gallbladder Estimated Blood Loss: EBL {In ML}: 10 Blood Products Given: N/A Drains Used: No Drains Post-Op Condition: Good Date of Surgery/Procedure: 09/20/17 Time of Surgery/Procedure: 10:01
--- NOTE | 2017-09-20 10:12 | RAD ---
PROCEDURE: Intraoperative Fluoroscopy. HISTORY: R/O STONES FINDINGS: Fluoroscopic assistance was provided for intraoperative cholangiography. Three spot fluoroscopic images of been submitted which fail demonstrate evidence of definitive suspicious filling defect within the common bile duct. Please refer to the operative report from [facility]. 20.2 seconds of fluoro time was utilized with a cumulative radiation dose of 3.3 mGy.
[2017-09-20 11:22] VITALS: RESP 18; TEMP 97.5
[2017-09-20 13:09] VITALS: BP 133/56; PULSE 60
--- NOTE | 2017-09-20 16:43 | OP ---
PROCEDURE DATE: 09/20/2017 PREOPERATIVE DIAGNOSES: Chronic cholecystitis and cholelithiasis. POSTOPERATIVE DIAGNOSES: Chronic cholecystitis and cholelithiasis. PROCEDURES PERFORMED: 1. Laparoscopic cholecystectomy with intraoperative cholangiogram. 2. Lysis of dense intraabdominal adhesions. SURGEON: Chi Anglin MD GRAVITY PROSPECTING OBSERVER HELPER: Dr. Diaz. ANESTHESIOLOGIST: Dr. Fernandez. ANESTHESIA: General endotracheal anesthesia. ESTIMATED BLOOD LOSS: Minimal. SPECIMEN: Gallbladder with stones. INDICATIONS: The patient is a 76-year-old male with history of recurrent right upper quadrant abdominal pain, who had a previous operation in the past for gastric ulcers with a large midline incision. The patient was scheduled for a laparoscopic cholecystectomy. DESCRIPTION OF PROCEDURE: The patient was brought to the operating room and placed on the operating table in a supine position. The patient was connected to EKG, blood pressure, and pulse oximetry monitors. The patient then underwent general endotracheal anesthesia, and was prepped and draped in the usual sterile fashion. First, a standard time-out procedure took place when everybody in the room agreed as to the patient's identity, diagnoses, and procedures to be performed. An operative course and postoperative care were discussed with the operating team. First, using lidocaine mixed with Marcaine, the area superior to the umbilicus was infiltrated and a transverse incision was made in order to access the abdominal cavity. The fascia was grabbed, elevated, and incised under direct vision. Careful dissection was done to go through the fascia into the preperitoneal fat and preperitoneum. On careful dissection, it was noted that there were some adhesions of the omentum to the anterior abdominal wall as well as some small bowel adhesions of the omentum to the small bowel wall. I carefully dissected with a finger dissection along the peritoneum and some of that fat. We then carefully placed trocar and proceeded for obtaining pneumoperitoneum. On initial evaluation, it appeared that there was omentum and small bowel plastered against the anterior abdominal wall. I tediously dissected those adhesions of the peritoneum in order to gain access to the right upper quadrant. After a tedious and difficult dissection, we were able to dissect down most of the omentum of the anterior abdominal wall gone from the midline to the right upper quadrant and after about an hour and 10 minutes, we were able to finally get through those in order to see the gallbladder. A careful evaluation was done in order to avoid any bleeding and none was noted. Now, a second 5 mm trocar was inserted through the subxiphoid position and careful dissection of the gallbladder begun. The infundibulum of the gallbladder was grabbed and elevated, and the cystic duct was dissected out and so as the cystic artery. Once both visualized, the cystic duct was clipped proximally and transected partially. A cholangiocatheter was inserted through that cystic duct into the lumen of the duct. Once the cholangiogram was obtained, it showed presence of entire biliary tree without any sign of obstruction. There was prompt flow of dye into the duodenum. The cystic duct catheter was removed. The cystic duct was clipped distally and transected. The cystic artery was also clipped and transected. The gallbladder was carefully taken off the liver bed and placed in an EndoCatch bag and removed through the periumbilical incision. Once this was done, we then proceeded with irrigation of the right upper quadrant and copiously suctioned out all the irrigant fluid. There was excellent hemostasis of the liver bed. I then carefully evaluated the periumbilical port with a camera through the subxiphoid port with no evidence of any bleeding. The port in the subxiphoid position was also evaluated and there was no bleeding. We then release pneumoperitoneum. We removed the trocar and closed the wound with 0 Vicryl for the fascia, 3-0 Vicryl for subcutaneous tissue, and 4-0 Monocryl for skin. A sterile Dermabond dressing was applied to the wounds. The patient tolerated the procedure well and there were no complications. The patient was awakened and transferred to the recovery room for further observation. Chi Anglin MD
== END 2017-09-20 12:45 | disposition home or self-care (01) ==
LOC: SDS 06:13
PROVIDERS: ATTEND General Practice
DX: K80.10 Calculus of gallbladder with chronic cholecystitis without obstruction (principal); K66.0 Peritoneal adhesions (postprocedural) (postinfection); I10 Essential (primary) hypertension
CPT/HCPCS: 36415; 47563; 74300; 86850; 86900; 88304; J0131; J0360; J0690; J2001; J2250; J2370; J2405; J2704; J2710; J2765; J3010; J7120 ×2; Q9966

== ENCOUNTER 2017-10-03 14:47 | Inpatient (IN) | payer MEDICARE, OTHER ==
[2017-10-03 14:54] VITALS: BMI 25.6
--- NOTE | 2017-10-03 15:58 | RAD ---
Date of service: 10/03/2017 HISTORY: weakness COMPARISON: 09/06/2017. FINDINGS: LUNGS: The lungs are well inflated and clear. PLEURA: No significant pleural effusion identified, no pneumothorax apparent. CARDIOVASCULAR: There is mild cardiomegaly. OSSEOUS STRUCTURES: No significant abnormalities. VISUALIZED UPPER ABDOMEN: Normal. OTHER FINDINGS: None. IMPRESSION: No active pulmonary disease.
[2017-10-03 16:02] LABS: VENOUS BLOOD GAS BASE EXCESS -12.2 mmol/L (0.0-2.0); VENOUS BLOOD GAS PO2 48 mm/Hg (30-55); VENOUS BLOOD PH 7.24 (7.32-7.43)
[2017-10-03 16:04] LABS: BASO # 0.01 K/mm3 (0.0-2.0); BASO % 0.2 % (0.0-3.0); EOS # 0.1 (0.0-0.7); EOS % 1.2 % (1.5-5.0); GRAN # 4.31 (1.4-6.5); GRAN % 76.7 % (50.0-68.0); HEMOGLOBIN 11.3 g/dL (14.0-18.0); MEAN CELL VOLUME 83.6 fl (80.0-105.0); MEAN CORPUSCULAR HEMOGLOBIN 29.8 pg (25.0-35.0); MEAN CORPUSCULAR HGB CONC 35.6 g/dl (31.0-37.0); MEAN PLATELET VOLUME 8.8 fl (7.0-11.0); MONO # 0.2 (0.1-0.6); MONO % 3.9 % (1.0-6.0); RBC 3.79 10^6/uL (3.5-6.1); RED CELL DISTRIBUTION WIDTH 12.7 % (11.5-14.5); WHITE BLOOD COUNT 5.6 10^3/ul (4.5-11.0)
[2017-10-03 16:14] LABS: INR 1.18 (0.93-1.08); PARTIAL THROMBOPLASTIN TIME 28.2 Seconds (25.1-36.5); PROTHROMBIN TIME 13.5 SECONDS (9.4-12.5)
[2017-10-03 16:30] LABS: URINE BILIRUBIN NEGATIVE (NEGATIVE); URINE BLOOD NEGATIVE (NEGATIVE); URINE GLUCOSE (UA) NEGATIVE (NEGATIVE); URINE LEUKOCYTE ESTERASE NEGATIVE Leu/uL (NEGATIVE); URINE PROTEIN NEGATIVE mg/dL (<30 mg/dL); URINE UROBILINOGEN 0.2 E.U./dL (<1 E.U./dL)
[2017-10-03 16:34] LABS: URINE APPEARANCE CLEAR (CLEAR); URINE COLOR YELLOW (YELLOW)
[2017-10-03 16:45] LABS: ALB/GLOB RATIO 1.4 (1.1-1.8); CALCIUM 9.4 mg/dL (8.4-10.5)
[2017-10-03] MEDS ORDERED: Sod Polystyrene Sulf 15 gm/60 ml Susp PO STA (16:45)
--- NOTE | 2017-10-03 17:10 | ED PDOC ---
Arrival/HPI - General Chief Complaint: Medical Clearance Time Seen by Provider: 10/03/17 15:07 Historian: Patient, Family - History of Present Illness Narrative History of Present Illness (Text): 10/03/17 17:10 77yr old male presents today sent in by surgeon for evaluation of renal failure. pt states he has been feeling fatigued for the past 2 days. Patient's daughter states that he had some urinary retention after this surgery and has been feeling bloated and distended. Patient states he had diarrhea a few days ago and this seems to have improved. Patient is complaining of a fullness in the abdomen. He denies nausea or vomiting. He denies dysuria. Patient states he is urinating less than normal and describes some difficulty with urination. He denies back pain. He denies chest pain or shortness of breath. He denies dizziness. No other complaints Past Medical History - Provider Review Nursing Documentation Reviewed: Yes - Travel History Have you recently traveled outside [place] w/in the past 3 mons?: No - Infectious Disease Hx of Infectious Diseases: None - Tetanus Immunization Tetanus Immunization: Unknown - Cardiac Hx Pacemaker: No - Pulmonary Hx Respiratory Disorders: No - Neurological Hx Paralysis: No - HEENT Hx HEENT Disorder: No - Renal Hx Renal Disorder: No - Endocrine/Metabolic Hx Endocrine Disorders: No - Hematological/Oncological Hx Blood Transfusions: No Hx Blood Transfusion Reaction: No - Integumentary Hx Dermatological Disorder: No - Musculoskeletal/Rheumatological Hx Musculoskeletal Disorders: No - Gastrointestinal Hx Gastrointestinal Disorders: No - Genitourinary/Gynecological Hx Genitourinary Disorders: No - Psychiatric Hx Emotional Abuse: No Hx Physical Abuse: No Hx Substance Use: No - Surgical History Hx Cholecystectomy: Yes (september 2017) - Anesthesia Hx Anesthesia Reactions: No Hx Malignant Hyperthermia: No - Suicidal Assessment Feels Threatened In Home Enviroment: No Family/Social History - Physician Review Nursing Documentation Reviewed: Yes Family/Social History: Unknown Family HX Smoking Status: Never Smoked Hx Alcohol Use: Yes (OCCASIONAL WINE) Hx Substance Use: No Allergies/Home Meds Allergies/Adverse Reactions: Allergies No Known Allergies Allergy (Verified 11/08/16 19:39) Home Medications: Home Meds Medication Instructions Recorded Confirmed Olmesartan/Hydrochlorothiazide 1 tab PO DAILY 11/08/16 10/03/17 [Benicar Hct 20-12.5 mg Tablet] Nifedipine [Adalat cc] 90 mg PO DAILY 09/06/17 10/03/17 metroNIDAZOLE [Flagyl] 500 mg PO BID 10/03/17 10/03/17 Review of Systems - Review of Systems Constitutional: Fatigue. absent: Fevers Respiratory: absent: SOB, Cough Cardiovascular: absent: Chest Pain, Palpitations Gastrointestinal: Abdominal Pain. absent: Constipation, Diarrhea, Nausea, Vomiting Genitourinary Male: Urinary Output Changes. absent: Dysuria, Frequency, Hematuria Musculoskeletal: absent: Arthralgias, Back Pain, Neck Pain Skin: absent: Rash, Pruritis Neurological: absent: Headache, Dizziness Psychiatric: absent: Anxiety, Depression Physical Exam Vital Signs Reviewed: Yes Vital Signs Temp Pulse Resp BP Pulse Ox 10/03/17 17:16 50 L 19 171/68 H 97 10/03/17 17:02 97.6 F 60 18 183/82 H 97 10/03/17 16:53 69 18 164/83 H 98 10/03/17 15:02 97.9 F 65 17 171/70 H 95 Temperature: Afebrile Blood Pressure: Hypertensive Pulse: Regular Respiratory Rate: Normal Appearance: Positive for: Well-Appearing, Non-Toxic, Comfortable Pain Distress: None Mental Status: Positive for: Alert and Oriented X 3 - Systems Exam Head: Present: Atraumatic Neck: Present: Normal Range of Motion Respiratory/Chest: Present: Clear to Auscultation, Good Air Exchange. No: Respiratory Distress, Accessory Muscle Use Cardiovascular: Present: Regular Rate and Rhythm, Normal S1, S2. No: Murmurs Abdomen: Present: Distention. No: Tenderness, Peritoneal Signs, Rebound, Guarding Back: Present: Normal Inspection. No: CVA Tenderness, Midline Tenderness, Paraspinal Tenderness Upper Extremity: Present: Normal ROM Lower Extremity: Present: Normal ROM. No: Edema Neurological: Present: GCS=15, Speech Normal Skin: Present: Warm, Dry, Normal Color. No: Rashes Psychiatric: Present: Alert, Oriented x 3 Medical Decision Making ED Course and Treatment: 10/03/17 17:22 77-year-old male presents today with acute renal failure sent in by surgeon. Patient had laparoscopic cholecystectomy on 09/20/17 Patient nontoxic well-appearing no distress mildly distended abdomen without tenderness. Outpatient labs reviewed which showed a BUN of 185 and a creatinine of 24.7 Mckinley catheter was placed. Repeat labs CBC within normal limits CMP BUN 187 creatinine 24.8 EKG: Sinus bradycardia at 58 bpm normal axis and no ST elevations mildly peaked T waves UA: wnl CAT scan of the abdomen and pelvis: Mckinley catheter put out 3300 mL of urine. pt was seen and evaluated by dr. hayden. pt was given Calcium gluconate and Kayexalate case was discussed with dr. jean; accepts admission. dr. jean discussed the cause with dr. Okeefe concrete smoother covering for dr. bui. he advised tele admit. for acute renal failure most likely secondary to urinary retention. pt reassessment; pt feeling better; states abdominal discomfort has improved. impression; acute renal failure, urinary retention, hyperkalemia. Admit to telemetry 10/03/17 17:25 - Lab Interpretations Lab Results: 10/03/17 15:50 10/03/17 15:50 Lab Results 10/03/17 16:07: Urine Color Yellow, Urine Appearance Clear, Urine pH 6.0, Ur Specific [place] 1.010, Urine Protein Negative, Urine Glucose (UA) Negative, Urine Ketones Negative, Urine Blood Negative, Urine Nitrate Negative, Urine Bilirubin Negative, Urine Urobilinogen 0.2, Ur Leukocyte Esterase Negative 10/03/17 15:50: pO2 48, VBG pH 7.24 L, VBG pCO2 33.0 L, VBG HCO3 14.1 L, VBG Total CO2 15.1 L, VBG O2 Sat (Calc) 82.5 H, VBG Base Excess -12.2 L, VBG Potassium 5.9 H, Sodium 128.0 L, Chloride 96.0 L, Glucose 131 H, Lactate 0.7, FiO2 21.0, Venous Blood Potassium 5.9 H 10/03/17 15:50: WBC 5.6, RBC 3.79, Hgb 11.3 L, Hct 31.7 L, MCV 83.6, MCH 29.8, MCHC 35.6, RDW 12.7, Plt Count 227, MPV 8.8, Gran % 76.7 H, Lymph % (Auto) 18.0 L, [place] % (Auto) 3.9, Eos % (Auto) 1.2 L, Baso % (Auto) 0.2, Gran # 4.31, Lymph # (Auto) 1.0 L, [place] # (Auto) 0.2, Eos # (Auto) 0.1, Baso # (Auto) 0.01 10/03/17 15:50: Sodium 135, Chloride 95 L, Potassium 5.8 H*, Carbon Dioxide 13 L , Anion Gap 32 H, BUN 185 H*, Creatinine 24.6 H*, Est GFR ( Amer) 2, Est GFR (Non-Af Amer) 2, Random Glucose 125 H, Calcium 9.4, Phosphorus 10.3 H, Total Bilirubin 0.5, AST 20, ALT 44, Alkaline Phosphatase 82, Total Protein 6.7 , Albumin 4.0, Globulin 2.8, Albumin/Globulin Ratio 1.4 10/03/17 15:50: PT 13.5 H, INR 1.18 H, APTT 28.2 - RAD Interpretation Radiology Orders: 10/03/17 15:31 ABD & PELVIS W/O PO OR IV CONT [CT] Stat 10/03/17 15:36 CHEST PORTABLE [RAD] Stat - Medication Orders Current Medication Orders: Calcium Gluconate 1,000 mg/ (Sodium Chloride) 110 mls @ 110 mls/hr IVPB ONCE ONE Stop: 10/03/17 17:44 Discontinued Medications Sodium Polystyrene Sulfonate (Kayexalate Susp) 15 gm PO STAT STA Stop: 10/03/17 16:46 Disposition/Present on Arrival - Present on Arrival Any Indicators Present on Arrival: No History of DVT/PE: No History of Uncontrolled Diabetes: No Urinary Catheter: No History of Decub. Ulcer: No History Surgical Site Infection Following: None - Disposition Have Diagnosis and Disposition been Completed?: Yes Diagnosis: Acute renal failure, Urinary retention, Hyperkalemia Disposition: HOSPITALIZED Disposition Time: 17:15 Patient Plan: Admission, Telemetry Patient Problems: Current Active Problems Problem Status Onset Acute renal failure Acute Hyperkalemia Acute Urinary retention Acute Condition: FAIR Forms: [employer] (Panamanian)
--- NOTE | 2017-10-03 17:28 | CT ---
Date of service: 10/03/2017 PROCEDURE: CT Abdomen and Pelvis without intravenous contrast HISTORY: Weakness, diarrhea COMPARISON: 11/08/2016 CT abdomen and pelvis goNone. TECHNIQUE: Unenhanced study. Neither oral nor intravenous contrast administered. Radiation dose: Total exam DLP = 483.27 mGy-cm. This CT exam was performed using one or more of the following dose reduction techniques: Automated exposure control, adjustment of the mA and/or kV according to patient size, and/or use of iterative reconstruction technique. FINDINGS: LOWER THORAX: Bilateral pleural effusions right larger than left. Associated compressive atelectasis. Distal esophageal thickening. LIVER: Small cyst in the right hepatic lobe unchanged. GALLBLADDER AND BILE DUCTS: Status post cholecystectomy. No abnormality is seen in the gallbladder fossa. PANCREAS: Unremarkable. No gross lesion or ductal dilatation. SPLEEN: Unremarkable. ADRENALS: Unremarkable. No mass. KIDNEYS AND URETERS: Unremarkable. No hydronephrosis. No solid mass. Stable bilateral renal cysts. VASCULATURE: Unremarkable. No aortic aneurysm. BOWEL: Unremarkable. No obstruction. No gross mural thickening. APPENDIX: Unremarkable. Normal appendix. PERITONEUM: Unremarkable. No free fluid. No free air. LYMPH NODES: Unremarkable. No enlarged lymph nodes. BLADDER: Markedly distended urinary bladder despite the presence of the well placed Mckinley catheter. REPRODUCTIVE: Stable, enlarged prostate. BONES: No acute fracture. OTHER FINDINGS: Flank edema. Edematous changes extending into the inguinal canals bilaterally. IMPRESSION: No acute findings related to/accounting for the clinical presentation. Additional benign and/or incidental findings described above.
[2017-10-03] MEDS ORDERED: SODIUM BICARBONATE IV SCH (18:30)
[2017-10-03] MEDS ORDERED: SODIUM CHLORIDE 0.45% IV SCH (18:30)
--- NOTE | 2017-10-03 19:02 | CP.PCM.HP ---
<CeilianaCollin - Last Filed: 10/03/17 20:47> History of Present Illness - History of Present Illness History of Present Illness: CC: Urinary retention, weakness, and fatigue HPI: Mr. Woods is a 77 yo male with PMH of hypertension presenting to the ED with urinary retention, generalized weakness, and fatigue. Patient states that he has been having difficulties in urinating after he had an elective laparoscopic cholecytectomy on 09/20/2017. Patient says that he had no problems urinating prior to the surgery. Patient has been experiencing bloating, abdominal fullness, and decrease PO intake in the past 2 weeks. Patient also states that he was experiencing constipation last Sunday and took miralax. Ever since taking it, patient has been having non-bloody diarrhea and went to his PMD on 10/02 and was started on metronidazole. The next day, the PMD told the patient to go to the hospital for abnormal blood test results. Patient denies headaches, fevers, chills, chest pain, shortness of breath, abdominal pain, nausea, or vomiting. In ED patient given calcium gluconate and Kayexalate. Daley catheter put out 3300 mL of urine. 12 point ROS negative except as indicated in HPI Past medical history: HTN, HLD? Surgical History: Elective laparoscopic cholecystectomy (09/20/2017), ERCP for choledocholithiasis (2016) Allergies: NKDA Social History: Former smoker last smoked 25 years ago, denies alcohol, and denies drug use. 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 Family History: none Medications: Benicar, nifedipine, flagyl PMD: Dr. Jones Pharmacy: [address] Present on Admission - Present on Admission Any Indicators Present on Admission: No History of DVT/PE: No History of Uncontrolled Diabetes: No Urinary Catheter: No Decubitus Ulcer Present: No Review of Systems - Review of Systems Review of Systems: 12 point ROS negative except as indicated in HPI Past Patient History - Infectious Disease Hx of Infectious Diseases: None - Tetanus Immunizations Tetanus Immunization: Unknown - Past Social History Smoking Status: Never Smoked - CARDIAC Hx Pacemaker: No - PULMONARY Hx Respiratory Disorders: No - NEUROLOGICAL Hx Paralysis: No - HEENT Hx HEENT Problems: No - RENAL Hx Chronic Kidney Disease: No - ENDOCRINE/METABOLIC Hx Endocrine Disorders: No - HEMATOLOGICAL/ONCOLOGICAL Hx Blood Transfusions: No Hx Blood Transfusion Reaction: No - INTEGUMENTARY Hx Dermatological Problems: No - MUSCULOSKELETAL/RHEUMATOLOGICAL Hx Musculoskeletal Disorders: No - GASTROINTESTINAL Hx Gastrointestinal Disorders: No - GENITOURINARY/GYNECOLOGICAL Hx Genitourinary Disorders: No - PSYCHIATRIC Hx Emotional Abuse: No Hx Physical Abuse: No Hx Substance Use: No - SURGICAL HISTORY Hx Cholecystectomy: Yes (september 2017) - ANESTHESIA Hx Anesthesia Reactions: No Hx Malignant Hyperthermia: No Meds Allergies/Adverse Reactions: Allergies Allergy/AdvReac Type Severity Reaction Status Date / Time No Known Allergies Allergy Verified 11/08/16 19:39 Physical Exam - Constitutional Appears: Well, No Acute Distress - Head Exam Head Exam: ATRAUMATIC, NORMAL INSPECTION - Eye Exam Eye Exam: Normal appearance, PERRL - ENT Exam ENT Exam: Mucous Membranes Dry - Neck Exam Neck exam: Positive for: Normal Inspection - Respiratory Exam Respiratory Exam: Clear to Auscultation Bilateral. absent: Rales, Rhonchi, Wheezes - Cardiovascular Exam Cardiovascular Exam: REGULAR RHYTHM, +S1, +S2. absent: Gallop, Rubs, Systolic Murmur - GI/Abdominal Exam GI & Abdominal Exam: Normal Bowel Sounds, Soft. absent: Tenderness - Exam Exam: NORMAL INSPECTION. absent: Scrotal Swelling, Uretheral Discharge External exam: NORMAL EXTERNAL EXAM Additional comments: daley catheter in place - Extremities Exam Extremities exam: Negative for: calf tenderness, pedal edema - Neurological Exam Neurological exam: Alert, CN II-XII Intact, Oriented x3 - Psychiatric Exam Psychiatric exam: Normal Affect, Normal Mood - Skin Skin Exam: Dry, Normal Color, Warm Results - Vital Signs Recent Vital Signs: Last Vital Signs Temp 97.9 F 10/03/17 18:00 Pulse 53 L 10/03/17 18:24 Resp 18 10/03/17 18:24 BP 173/66 H 10/03/17 18:00 Pulse Ox 99 10/03/17 18:24 - Labs Result Diagrams: 10/03/17 15:50 10/03/17 15:50 Assessment & Plan - Assessment and Plan (Free Text) Assessment: Mr. Larry is a 76 yo male with PMH of HTN and s/p laparoscopic cholecystectomy (09/20/2017) presenting with urinary retention, generalized weakness, and fatigue. Plan: Urinary obstruction - rule out obstructions vs bladder injury s/p surgery vs BPH - creatinine was 24.6 in ED - Abdomen/pelvic CT: no acute findings, no hydronephrosis, markedly distended urinary bladder despite the presence of well placed daley, bilateral pleural effusion right greater than left, associated compressive atelactasis. - CXR: no acute disease - Nephrology consulted - Urology consulted - UA: negative - urine osmolality and urine sodium levels ordered - blood culture and urine culture ordered - strict I's and O's - monitor creatinine levels in AM - place patient on telemetry - started IVF 0.5 NS @ 100mls/h Hyperkalemia - potassium was 5.8 in ED - EKG: Sinus bradycardia at 58 bpm normal axis and no ST elevations mildly peaked T waves - Calcium gluconate and kayexalate was given in ED - started IV sodium bicarbonate - monitor potassium levels in AM Non-bloody diarrhea - most likely secondary to laxative use - stool c diff- ordered - hold metronidazole history of hypertension - hold benicar (home meds) - c/w nifedipine 90mg PO - hydralazine 10mg IVP Q6 PRN DVT/GI prophylaxis - pepcid - heparin Patient case reviewed with and plan approved by attending physician, Dr. Dobson <Sussy Garcia - Last Filed: 10/04/17 07:24> Results - Vital Signs Recent Vital Signs: Last Vital Signs Temp 98.1 F 10/04/17 06:00 Pulse 60 10/04/17 06:46 Resp 20 10/04/17 06:00 BP 183/83 H 10/04/17 06:46 Pulse Ox 96 10/04/17 06:00 - Labs Result Diagrams: 10/04/17 06:00 10/04/17 06:00 Labs: Laboratory Results - last 24 hr 10/03/17 10/03/17 10/04/17 18:12 21:05 05:00 Sodium 145 Potassium 3.9 Chloride 105 Carbon Dioxide 19 L Anion Gap 24 H BUN 136 H* Creatinine 13.9 H* D Est GFR ( Amer) 4 Est GFR (Non-Af Amer) 3 Random Glucose 188 H Calcium 10.6 H Total Bilirubin 0.6 AST 28 ALT 46 Alkaline Phosphatase 84 Total Protein 7.3 Albumin 4.3 Globulin 3.0 Albumin/Globulin Ratio 1.4 Urine Osmolality 475 Ur Random Sodium Blood Type B POSITIVE Antibody Screen Negative BBK History Checked Patient has bt 10/04/17 05:00 Sodium Potassium Chloride Carbon Dioxide Anion Gap BUN Creatinine Est GFR ( Amer) Est GFR (Non-Af Amer) Random Glucose Calcium Total Bilirubin AST ALT Alkaline Phosphatase Total Protein Albumin Globulin Albumin/Globulin Ratio Urine Osmolality Ur Random Sodium 89 Blood Type Antibody Screen BBK History Checked Attending/Attestation - Attestation I have personally seen and examined this patient.: Yes I have fully participated in the care of the patient.: Yes I have reviewed all pertinent clinical information: Yes Notes (Text): 10/03/17 77 year old male with past medical history of hypertension and recent lap tai (09/20/17) who presented with complaint of generalized weakness and fatigue. He was found to have acute renal failure, hyperkalemia and metabolic acidosis. [place] likely multifactorial including urinary retention. Daley was placed and patient put out [address] abd/pelvis was reviewed which showed distended urinary bladder and enlarged prostate. Nephrology and urology evaluation were requested. Case was discussed with nephrology; no indication for acute dialysis for now; recommended 1/2 NS with bicarb. Patient also received kayexalate and calcium gluconate for hyperkalemia. Will follow up repeat bmp. Benicar on hold for now. Continue with nifedipine and hydralazine prn for hypertension. CDif ordered as patient was complaining of loose stools. Sussy Garcia MD Hospitalist.
--- NOTE | 2017-10-03 19:32 | CARD ---
APPROVED REPORT Date of service: 10/03/2017 EKG Measurement Heart [id number] <Conclusion> Sinus bradycardia Otherwise normal ECG
[2017-10-03 21:55] LABS: ALB/GLOB RATIO 1.4 (1.1-1.8); ALBUMIN 4.3 g/dL (3.0-4.8); CALCIUM 10.6 mg/dL (8.4-10.5)
[2017-10-04 07:05] LABS: BASO # 0.01 K/mm3 (0.0-2.0); BASO % 0.1 % (0.0-3.0); EOS % 0.2 % (1.5-5.0); GRAN # 7.89 (1.4-6.5); GRAN % 89.4 % (50.0-68.0); HEMOGLOBIN 12.2 g/dL (14.0-18.0); LYMPH # 0.8 (1.2-3.4); LYMPH % 8.9 % (22.0-35.0); MEAN CELL VOLUME 83.6 fl (80.0-105.0); MEAN CORPUSCULAR HEMOGLOBIN 29.8 pg (25.0-35.0); MEAN CORPUSCULAR HGB CONC 35.7 g/dl (31.0-37.0); MEAN PLATELET VOLUME 9.2 fl (7.0-11.0); MONO # 0.1 (0.1-0.6); MONO % 1.4 % (1.0-6.0); RBC 4.09 10^6/uL (3.5-6.1); RED CELL DISTRIBUTION WIDTH 12.8 % (11.5-14.5); WHITE BLOOD COUNT 8.8 10^3/ul (4.5-11.0)
[2017-10-04 07:15] LABS: ALB/GLOB RATIO 1.3 (1.1-1.8); ALBUMIN 4.4 g/dL (3.0-4.8); CALCIUM 10.4 mg/dL (8.4-10.5)
[2017-10-04] MEDS ORDERED: Sodium Chloride 0.9% 1,000 ML IV SCH (09:15)
--- NOTE | 2017-10-04 09:49 | CP.PCM.CON ---
History of Present Illness - History of Present Illness History of Present Illness: general surgery consult not for Dr. hoyt consulted for post operative followup Mr Larry is a 77 yr od male with PMH of HTN who is POD 14 from a laparoscopic cholecystectomy. patient was sent to the ED today for abnormal lab results, weakness, fatigue and urinary retention. upon arriving in the ED he was found to have a K of 5.8 and Cr of 24. he was given Ca gluconate and kayexalate, ekg showed mildly peaked t waves. repeat labs showed decreased in K to 3.9 and Cr to 13.8. Patient states that over the past 2 weeks he has been feeling bloated and has decreased his PO intake to compensate. He denies f/c/n/v, headaches, chest pain or abdominal pain. PMH: HTN PSH: laparoscopic cholecystectomy (09/20/17), ERCP (2016) social: former smoker quit 25 yrs ago Allergies: NKDA Review of Systems - Review of Systems All systems: reviewed and no additional remarkable complaints except Review of Systems: as per HPI Past Patient History - Infectious Disease Hx of Infectious Diseases: None - Tetanus Immunizations Tetanus Immunization: Unknown - Past Social History Smoking Status: Never Smoked - CARDIAC Hx Pacemaker: No - PULMONARY Hx Respiratory Disorders: No - NEUROLOGICAL Hx Paralysis: No - HEENT Hx HEENT Problems: No - RENAL Hx Chronic Kidney Disease: No - ENDOCRINE/METABOLIC Hx Endocrine Disorders: No - HEMATOLOGICAL/ONCOLOGICAL Hx Blood Transfusions: No Hx Blood Transfusion Reaction: No - INTEGUMENTARY Hx Dermatological Problems: No - MUSCULOSKELETAL/RHEUMATOLOGICAL Hx Musculoskeletal Disorders: No - GASTROINTESTINAL Hx Gastrointestinal Disorders: No - GENITOURINARY/GYNECOLOGICAL Hx Genitourinary Disorders: No - PSYCHIATRIC Hx Emotional Abuse: No Hx Physical Abuse: No Hx Substance Use: No - SURGICAL HISTORY Hx Cholecystectomy: Yes (september 2017) - ANESTHESIA Hx Anesthesia Reactions: No Hx Malignant Hyperthermia: No Meds Allergies/Adverse Reactions: Allergies Allergy/AdvReac Type Severity Reaction Status Date / Time No Known Allergies Allergy Verified 11/08/16 19:39 - Medications Medications: Current Medications Famotidine (Pepcid) 40 mg PO HS [facility] Last Admin: 10/03/17 21:21 Dose: 40 mg Heparin Sodium (Porcine) (Heparin) 5,000 units SC Q12 BENJA PRN Reason: Protocol Last Admin: 10/03/17 21:21 Dose: 5,000 units Hydralazine HCl (Apresoline) 10 mg IVP Q6 PRN PRN Reason: sbp > 180 or DBP > 100 Last Admin: 10/04/17 06:46 Dose: 10 mg Hydralazine HCl (Apresoline) 50 mg PO BID [facility] Sodium Chloride (Sodium Chloride 0.45%) 1,000 mls @ 100 mls/hr IV .Q10H [facility]ENJA Nifedipine (Procardia Xl) 90 mg PO DAILY [facility] Tamsulosin HCl (Flomax) 0.4 mg PO DAILY [facility] Physical Exam - Constitutional Appears: Well, Non-toxic, No Acute Distress - Head Exam Head Exam: ATRAUMATIC, NORMOCEPHALIC - ENT Exam ENT Exam: Mucous Membranes Moist - Respiratory Exam Respiratory Exam: NORMAL BREATHING PATTERN - Cardiovascular Exam Cardiovascular Exam: REGULAR RHYTHM Additional comments: small peaked t waves on EKG - GI/Abdominal Exam GI & Abdominal Exam: Soft. absent: Distended, Firm, Guarding, Rebound, Rigid, Tenderness - Extremities Exam Extremities exam: Negative for: pedal edema - Neurological Exam Neurological exam: Alert, Oriented x3 - Psychiatric Exam Psychiatric exam: Normal Affect, Normal Mood - Skin Skin Exam: Dry, Intact, Normal Color, Warm Results - Vital Signs Recent Vital Signs: Last Vital Signs Temp 98.1 F 10/04/17 06:00 Pulse 60 10/04/17 06:46 Resp 20 10/04/17 06:00 BP 183/83 H 10/04/17 06:46 Pulse Ox 96 10/04/17 06:00 - Labs Result Diagrams: 10/04/17 06:00 10/04/17 06:00 Labs: Laboratory Results - last 24 hr 10/03/17 10/03/17 10/04/17 18:12 21:05 05:00 WBC RBC Hgb Hct MCV MCH MCHC RDW Plt Count MPV Gran % Lymph % (Auto) Swain % (Auto) Eos % (Auto) Baso % (Auto) Gran # Lymph # (Auto) [place] # (Auto) Eos # (Auto) Baso # (Auto) Sodium 145 Potassium 3.9 Chloride 105 Carbon Dioxide 19 L Anion Gap 24 H BUN 136 H* Creatinine 13.9 H* D Est GFR ( Amer) 4 Est GFR (Non-Af Amer) 3 Random Glucose 188 H Calcium 10.6 H Phosphorus Magnesium Total Bilirubin 0.6 AST 28 ALT 46 Alkaline Phosphatase 84 Total Protein 7.3 Albumin 4.3 Globulin 3.0 Albumin/Globulin Ratio 1.4 Urine Osmolality 475 Ur Random Sodium Blood Type B POSITIVE Antibody Screen Negative BBK History Checked Patient has bt 10/04/17 10/04/17 10/04/17 05:00 06:00 06:00 WBC 8.8 D RBC 4.09 Hgb 12.2 L Hct 34.2 L MCV 83.6 MCH 29.8 MCHC 35.7 RDW 12.8 Plt Count 284 MPV 9.2 Gran % 89.4 H Lymph % (Auto) 8.9 L Sw[place] % (Auto) 1.4 Eos % (Auto) 0.2 L Baso % (Auto) 0.1 Gran # 7.89 H Lymph # (Auto) 0.8 L Swain # (Auto) 0.1 Eos # (Auto) 0.0 Baso # (Auto) 0.01 Sodium 151 H Potassium 3.9 Chloride 106 Carbon Dioxide 28 Anion Gap 22 H BUN 89 H Creatinine 6.8 H Est GFR ( Amer) 10 Est GFR (Non-Af Amer) 8 Random Glucose 129 H Calcium 10.4 Phosphorus 5.7 H Magnesium 2.4 H Total Bilirubin 0.7 AST 28 ALT 39 Alkaline Phosphatase 83 Total Protein 7.8 Albumin 4.4 Globulin 3.4 Albumin/Globulin Ratio 1.3 Urine Osmolality Ur Random Sodium 89 Blood Type Antibody Screen BBK History Checked Assessment & Plan - Assessment and Plan (Free Text) Assessment: 77 yr old male with urinary retention and acute renal failure s/p laparoscopic cholecystectomy POD 14 Plan: - daley catheter to remain in place -will follow up nephrology and urology recommendations - 1/2 NS @ 100 ml/hr - repeat Cr q8hrs until returns to normal - pt admitted to [facility], will follow potassium levels -further recs per Dr. Derrek Mackenzie PGY 1 - Date & Time Date: 10/04/17 Time: 02:00
[2017-10-04] MEDS: NIFEdipine 90 mg ER Tab PO SCH (11:24)
[2017-10-04] MEDS: Sodium Chloride 0.45% 1,000 ML IV SCH ×2 (11:25→22:10)
--- NOTE | 2017-10-04 12:47 | CP.PCM.PN ---
<Andi Jenkins - Last Filed: 10/04/17 21:05> Subjective - Date & Time of Evaluation Date of Evaluation: 10/04/17 Time of Evaluation: 07:20 - Subjective Subjective: Andi Jenkins DO PGY-1, Pharmacy Resource Tech Medicine Progress Note Pt seen and examined at bedside. States he feels much better this am, denies abd pain or dysuria/burning with urination. Pt states that he has been having diarrhea since yesterday, reporting 3 loose stools. Denies fever, chills, chest pain, sob, n/v/c, or other symptoms. Objective - Vital Signs/Intake and Output Vital Signs (last 24 hours): Temp Pulse Resp BP Pulse Ox 97.8 F 70 18 183/80 H 96 10/04/17 12:00 10/04/17 12:00 10/04/17 12:00 10/04/17 12:00 10/04/17 06:00 Intake and Output: 10/04/17 10/04/17 06:59 18:59 Intake Total 1380 Output Total 3300 Balance -1920 - Medications Medications: Current Medications Famotidine (Pepcid) 40 mg PO HS [facility] Last Admin: 10/03/17 21:21 Dose: 40 mg Heparin Sodium (Porcine) (Heparin) 5,000 units SC Q12 BENJA PRN Reason: Protocol Last Admin: 10/04/17 11:05 Dose: 5,000 units Hydralazine HCl (Apresoline) 10 mg IVP Q6 PRN PRN Reason: sbp > 180 or DBP > 100 Last Admin: 10/04/17 06:46 Dose: 10 mg Hydralazine HCl (Apresoline) 50 mg PO BID [facility] Last Admin: 10/04/17 11:05 Dose: 50 mg Sodium Chloride (Sodium Chloride 0.45%) 1,000 mls @ 100 mls/hr IV .Q10H [facility] Last Admin: 10/04/17 11:25 Dose: 100 mls/hr Nifedipine (Procardia Xl) 90 mg PO DAILY [facility] Last Admin: 10/04/17 11:24 Dose: 90 mg Tamsulosin HCl (Flomax) 0.4 mg PO DAILY [facility] Last Admin: 10/04/17 11:15 Dose: 0.4 mg - Labs Labs: 10/04/17 06:00 10/04/17 06:00 PT 13.5 SECONDS (9.4-12.5) H 10/03/17 15:50 INR 1.18 (0.93-1.08) H 10/03/17 15:50 APTT 28.2 Seconds (25.1-36.5) 10/03/17 15:50 - Constitutional Appears: Non-toxic, No Acute Distress - Head Exam Head Exam: ATRAUMATIC, NORMAL INSPECTION, NORMOCEPHALIC - Eye Exam Eye Exam: EOMI, Normal appearance, PERRL - ENT Exam ENT Exam: Mucous Membranes Moist, Normal Oropharynx - Neck Exam Neck Exam: Full ROM, Normal Inspection - Respiratory Exam Respiratory Exam: Clear to Ausculation Bilateral, NORMAL BREATHING PATTERN - Cardiovascular Exam Cardiovascular Exam: REGULAR RHYTHM, +S1, +S2 - GI/Abdominal Exam GI & Abdominal Exam: Soft, Normal Bowel Sounds - Extremities Exam Extremities Exam: Full ROM, Normal Capillary Refill, Normal Inspection - Back Exam Back Exam: Full ROM, NORMAL INSPECTION - Neurological Exam Neurological Exam: Alert, Awake, CN II-XII Intact, Oriented x3 - Psychiatric Exam Psychiatric exam: Normal Affect, Normal Mood - Skin Skin Exam: Dry, Intact, Normal Color, Warm Assessment and Plan - Assessment and Plan (Free Text) Assessment: 76 yo male with PMH of HTN and s/p laparoscopic cholecystectomy (09/20/2017) presenting with urinary retention, generalized weakness, and fatigue. Likely secondary to obstructive uropathy. Plan: Urinary obstruction - R/o obstruction vs BPH - Creatinine was 24.6 in ED, improving, today 6.8 => 3.4, continue to monitor - Abdomen/pelvic CT 10/03: no acute findings, no hydronephrosis, markedly distended urinary bladder despite the presence of well placed daley, stable enlarged prostate, bilateral pleural effusion right greater than left, associated compressive atelactasis. - CXR 10/03: no acute disease - Nephrology, Urology, Gen Surgery consulted, recs appreciated - UA: negative - Urine osmolality 475, urine sodium 89 - Urine, blood cxs pending; u/a demonstrates no evidence of UTI - strict I's and O's - C/w IVF 1/2 NS @ 100 cc/hr - Start flomax Hyperkalemia - potassium was 5.8 in ED, Today 3.9, resolved, continue to trend - EKG in ED: Sinus bradycardia at 58 bpm, normal axis and no ST elevations, mildly peaked T waves - Calcium gluconate and kayexalate were given in ED - IV sodium bicarbonate d/c'd Non-bloody diarrhea - Pt had C.diff test performed at PMD's office 2 days ago, test was negative - Likely 2/2 to pt's recent anbx use outpatient - Continue to hold flagyl Hx HTN - Hold benicar (home med) - C/w nifedipine 90mg PO - Per nephro: hydralazine 50 mg bid - Nephro consulted, recs appreciated - Continue to trend bps inpatient DVT/GI prophylaxis - Pepcid - Heparin Pt seen, examined with, and plan d/w Dr. Garcia, attending Andi Jenkins DO PGY-1, Pharmacy Resource Tech Pager #[phone] <Sussy Garcia - Last Filed: 10/05/17 07:01> Objective - Vital Signs/Intake and Output Vital Signs (last 24 hours): Temp Pulse Resp BP Pulse Ox 98.2 F 57 L 19 164/80 H 98 10/05/17 06:00 10/05/17 06:00 10/05/17 06:00 10/05/17 06:00 10/05/17 06:00 Intake and Output: 10/04/17 10/05/17 18:59 06:59 Intake Total 2140 1500 Output Total 2400 1400 Balance -260 100 - Medications Medications: Current Medications Famotidine (Pepcid) 40 mg PO HS [facility] Last Admin: 10/04/17 22:14 Dose: 40 mg Heparin Sodium (Porcine) (Heparin) 5,000 units SC Q12 [facility] PRN Reason: Protocol Last Admin: 10/04/17 22:14 Dose: 5,000 units Hydralazine HCl (Apresoline) 10 mg IVP Q6 PRN PRN Reason: sbp > 180 or DBP > 100 Last Admin: 10/04/17 06:46 Dose: 10 mg Hydralazine HCl (Apresoline) 100 mg PO BID [facility] Last Admin: 10/04/17 18:13 Dose: 100 mg Sodium Chloride (Sodium Chloride 0.45%) 1,000 mls @ 100 mls/hr IV .Q10H [facility] Last Admin: 10/04/17 22:10 Dose: 100 mls/hr Nifedipine (Procardia Xl) 90 mg PO DAILY [facility] Last Admin: 10/04/17 11:24 Dose: 90 mg Ondansetron HCl (Zofran Inj) 4 mg IVP Q4H PRN PRN Reason: Nausea/Vomiting Last Admin: 10/04/17 16:35 Dose: 4 mg Tamsulosin HCl (Flomax) 0.4 mg PO DAILY [facility] Last Admin: 10/04/17 11:15 Dose: 0.4 mg - Labs Labs: 10/04/17 06:00 10/04/17 17:35 PT 13.5 SECONDS (9.4-12.5) H 10/03/17 15:50 INR 1.18 (0.93-1.08) H 10/03/17 15:50 APTT 28.2 Seconds (25.1-36.5) 10/03/17 15:50 Attending/Attestation - Attestation I have personally seen and examined this patient.: Yes I have fully participated in the care of the patient.: Yes I have reviewed all pertinent clinical information, including history, physical exam and plan: Yes Notes (Text): 10/04/17 77 year old male with past medical history of hypertension and recent lap tai (09/20/17) who presented with complaint of generalized weakness and fatigue. He was found to have acute renal failure, hyperkalemia and metabolic acidosis. WINST[place] likely multifactorial including urinary retention, diarrhea, medications. Daley was placed and patient put over [address] abd/pelvis showed distended urinary bladder and enlarged prostate. Nephrology evaluation was appreciated. Urology consult was requested. Patient' s creatine is improving. Hyperkalemia and acidosis have resolved. Benicar on hold for now. Continue with nifedipine and hydralazine was added as well. He was started on flomax. He also reports diarrhea has improved and recent CDif study was negative. Daughter is at bedside and questions were answered. Sussy Garcia MD Hospitalist.
[2017-10-04 13:30] LABS: ALB/GLOB RATIO 1.3 (1.1-1.8); ALBUMIN 4.3 g/dL (3.0-4.8); CALCIUM 10.1 mg/dL (8.4-10.5)
--- NOTE | 2017-10-04 14:58 | CP.PCM.DIS ---
Provider - Provider Date of Admission: 10/03/17 17:14 Attending physician: Sussy Garcia MD Primary care physician: Jason Jones MD Time Spent in preparation of Discharge (in minutes): 35 Hospital Course - Lab Results Lab Results: Most Recent Lab Values WBC 8.8 10^3/ul (4.5-11.0) D 10/04/17 06:00 RBC 4.09 10^6/uL (3.5-6.1) 10/04/17 06:00 Hgb 12.2 g/dL (14.0-18.0) L 10/04/17 06:00 Hct 34.2 % (42.0-52.0) L 10/04/17 06:00 MCV 83.6 fl (80.0-105.0) 10/04/17 06:00 MCH 29.8 pg (25.0-35.0) 10/04/17 06:00 MCHC 35.7 g/dl (31.0-37.0) 10/04/17 06:00 RDW 12.8 % (11.5-14.5) 10/04/17 06:00 Plt Count 284 10^3/uL (120.0-450.0) 10/04/17 06:00 MPV 9.2 fl (7.0-11.0) 10/04/17 06:00 Gran % 89.4 % (50.0-68.0) H 10/04/17 06:00 Lymph % (Auto) 8.9 % (22.0-35.0) L 10/04/17 06:00 Evans % (Auto) 1.4 % (1.0-6.0) 10/04/17 06:00 Eos % (Auto) 0.2 % (1.5-5.0) L 10/04/17 06:00 Baso % (Auto) 0.1 % (0.0-3.0) 10/04/17 06:00 Gran # 7.89 (1.4-6.5) H 10/04/17 06:00 Lymph # (Auto) 0.8 (1.2-3.4) L 10/04/17 06:00 Evans # (Auto) 0.1 (0.1-0.6) 10/04/17 06:00 Eos # (Auto) 0.0 (0.0-0.7) 10/04/17 06:00 Baso # (Auto) 0.01 K/mm3 (0.0-2.0) 10/04/17 06:00 PT 13.5 SECONDS (9.4-12.5) H 10/03/17 15:50 INR 1.18 (0.93-1.08) H 10/03/17 15:50 APTT 28.2 Seconds (25.1-36.5) 10/03/17 15:50 pO2 48 mm/Hg (30-55) 10/03/17 15:50 VBG pH 7.24 (7.32-7.43) L 10/03/17 15:50 VBG pCO2 33.0 (40-60) L 10/03/17 15:50 VBG HCO3 14.1 mmol/l (21-28) L 10/03/17 15:50 VBG Total CO2 15.1 mmol.L (22-28) L 10/03/17 15:50 VBG O2 Sat (Calc) 82.5 % (40-65) H 10/03/17 15:50 VBG Base Excess -12.2 mmol/L (0.0-2.0) L 10/03/17 15:50 VBG Potassium 5.9 mmol/L (3.6-5.2) H 10/03/17 15:50 Sodium 128.0 mmol/L (132-148) L 10/03/17 15:50 Chloride 96.0 mmol/L (98-107) L 10/03/17 15:50 Glucose 131 mg/dl (75-110) H 10/03/17 15:50 Lactate 0.7 mmol/L (0.7-2.1) 10/03/17 15:50 FiO2 21.0 % 10/03/17 15:50 Sodium 147 mmol/L (132-148) 10/04/17 13:00 Potassium 3.3 mmol/L (3.6-5.0) L 10/04/17 13:00 Chloride 104 mmol/L (98-107) 10/04/17 13:00 Carbon Dioxide 28 mmol/L (21-33) 10/04/17 13:00 Anion Gap 19 (10-20) 10/04/17 13:00 BUN 58 mg/dL (7-21) H 10/04/17 13:00 Creatinine 3.4 mg/dl (0.8-1.5) H 10/04/17 13:00 Est GFR ( Amer) 21 10/04/17 13:00 Est GFR (Non-Af Amer) 18 10/04/17 13:00 Random Glucose 165 mg/dL (70-110) H 10/04/17 13:00 Calcium 10.1 mg/dL (8.4-10.5) 10/04/17 13:00 Phosphorus 4.3 mg/dL (2.5-4.5) 10/04/17 13:00 Magnesium 2.2 mg/dL (1.7-2.2) 10/04/17 13:00 Total Bilirubin 0.6 mg/dL (0.2-1.3) 10/04/17 13:00 AST 25 U/L (17-59) 10/04/17 13:00 ALT 37 U/L (7-56) 10/04/17 13:00 Alkaline Phosphatase 79 U/L (38-126) 10/04/17 13:00 Total Protein 7.5 g/dL (5.8-8.3) 10/04/17 13:00 Albumin 4.3 g/dL (3.0-4.8) 10/04/17 13:00 Globulin 3.2 gm/dL 10/04/17 13:00 Albumin/Globulin Ratio 1.3 (1.1-1.8) 10/04/17 13:00 Venous Blood Potassium 5.9 mmol/L (3.6-5.2) H 10/03/17 15:50 Urine Color Yellow (YELLOW) 10/03/17 16:07 Urine Appearance Clear (CLEAR) 10/03/17 16:07 Urine pH 6.0 (4.7-8.0) 10/03/17 16:07 Ur Specific [place] 1.010 (1.005-1.035) 10/03/17 16:07 Urine Protein Negative mg/dL (<30 mg/dL) 10/03/17 16:07 Urine Glucose (UA) Negative mg/dL (NEGATIVE) 10/03/17 16:07 Urine Ketones Negative mg/dL (NEGATIVE) 10/03/17 16:07 Urine Blood Negative (NEGATIVE) 10/03/17 16:07 Urine Nitrate Negative (NEGATIVE) 10/03/17 16:07 Urine Bilirubin Negative (NEGATIVE) 10/03/17 16:07 Urine Urobilinogen 0.2 E.U./dL (<1 E.U./dL) 10/03/17 16:07 Ur Leukocyte Esterase Negative George/uL (NEGATIVE) 10/03/17 16:07 Urine Osmolality 475 mosm/kg (300-1000) 10/04/17 05:00 Ur Random Sodium 89 meq/L 10/04/17 05:00 Blood Type B POSITIVE 10/03/17 18:12 Antibody Screen Negative 10/03/17 18:12 BBK History Checked Patient has bt 10/03/17 18:12 Discharge Exam - Head Exam Head Exam: ATRAUMATIC, NORMAL INSPECTION, NORMOCEPHALIC Discharge Plan - Follow Up Plan Condition: FAIR Disposition: HOME/ ROUTINE Referrals: Jason Jones MD [Primary Care Provider] -
[2017-10-04 18:04] LABS: CALCIUM 10.1 mg/dL (8.4-10.5)
[2017-10-04] MEDS: Potassium Chloride 20 mEq ER Tab PO SCH ×2 (18:13→22:17)
--- NOTE | 2017-10-04 18:42 | CP.PCM.CON ---
History of Present Illness - History of Present Illness History of Present Illness: Nephrology Consultation Note: Assessment: critical severe Acute Kidney Injury (N17.9) with uremia likely due to obstructive uropathy, urine retention due to prostatomegaly; improving s/p daley Hypernatremia, hypokalemia, hypokalemia severe uncontrolled HTN Hyperphosphatemia (E83.39) cholelithiasis s/p recent lap tai Plan No acute need for renal replacement therapy at this time. UOP good and cr trended down greatly continue with 0.45% saline @ 100 ml/hr Hypertension control with meds as ordered. Patient not on ACEI/ARB due to WINSTON, will resume once renal function normal. hydralazine as ordered for HTN control Monitor Input/Output, daily weights and renal function with basic metabolic panel started flomax urology consult continue with indwelling daley catheter supplement lytes as needed Dose meds/antibiotics for improved GFR. Avoid fleets enema/magnesium based laxatives. Avoid nephrotoxins/NSAIDs/ iodinated contrast (unless needed emergently) Glycemic control Further work up/management as per primary team Thanks for allowing me to participate in care of your patient. Will follow patient with you. Please call if any Qs. had d/w team Dr Danie Okeefe Office: [phone] Chief Complaint; unable to urinate Reason for consult: severe WINSTON and uremia HPI: Pt is a 77 M with hx of hypertension (years) and cholelithiasis s/p recent lap tai presented with complaints of inability to urinate for last 7 days. pt says he had loose stool for last few days but no urine. he denies symptoms of BPH prior to this in ER daley was placed and 3.3 L urine came out Denies OTC/herbal meds or NSAIDs No recent iodinated contrast exposure. No obvious episodes of low BP. in fact BP high no hx of kidney disease in past feels dizzy today. nausea + but better ROS: Cardiovascular: No chest pain. Pulmonary: No shortness of breath Gastrointestinal: denies abdominal pain c/o nausea but better. No vomiting. Genitourinary: No pain while urinating. Denies blood in urine. now has daley All other negative except as mentioned in HPI Physical Examination: General Appearance: Comfortable, in no acute respiratory distress, co-operative . Vitals reviewed and noted as below Head; Atraumatic, normocephalic ENT: no ulcers no thrush. Tongue is midline. Oropharynx: no rash or ulcers. EYES: Pupils are equal, round and reactive to light accommodation. Eye muscles and extraocular movement intact. Sclera is anicteric. Neck; supple no lymphadenopathy, no thyromegaly or bruit Lungs: Normal respiratory rate/effort. Breath sounds bilateral equal and clear Heart: Normal rate. s1s2 normal. No rub or gallop. Extremities: no edema. No varicose veins Neurological: Patient is alert, awake and oriented to person, place and time. No focal deficit. Strength bilateral appropriate and equal Skin: Warm and dry. Normal turgor. No rash. Palpitation: Normal elasticity for age Abdomen: Abdomen is soft. Bowel sounds +. There is no abdominal tenderness, no guarding/rigidity no organomegaly. s/p lap tai Psych: normal insight and normal affect/mood MSK: no joint tenderness or swelling. Digits and nails normal, no deformity : kidney or bladder not palpable. has daley Labs/imaging reviewed. Past medical history, past surgical history, family history, social history, allergy reviewed and noted as below Family hx: no hx of CKD. Rest non-contributory CT abdomen: large bladder CT in 2017: enlarged prostate Past Patient History - Infectious Disease Hx of Infectious Diseases: None - Tetanus Immunizations Tetanus Immunization: Unknown - Past Social History Smoking Status: Never Smoked - CARDIAC Hx Pacemaker: No - PULMONARY Hx Respiratory Disorders: No - NEUROLOGICAL Hx Paralysis: No - HEENT Hx HEENT Problems: No - RENAL Hx Chronic Kidney Disease: No - ENDOCRINE/METABOLIC Hx Endocrine Disorders: No - HEMATOLOGICAL/ONCOLOGICAL Hx Blood Transfusions: No Hx Blood Transfusion Reaction: No - INTEGUMENTARY Hx Dermatological Problems: No - MUSCULOSKELETAL/RHEUMATOLOGICAL Hx Musculoskeletal Disorders: No - GASTROINTESTINAL Hx Gastrointestinal Disorders: No - GENITOURINARY/GYNECOLOGICAL Hx Genitourinary Disorders: No - PSYCHIATRIC Hx Emotional Abuse: No Hx Physical Abuse: No Hx Substance Use: No - SURGICAL HISTORY Hx Cholecystectomy: Yes (september 2017) - ANESTHESIA Hx Anesthesia Reactions: No Hx Malignant Hyperthermia: No Meds Allergies/Adverse Reactions: Allergies Allergy/AdvReac Type Severity Reaction Status Date / Time No Known Allergies Allergy Verified 11/08/16 19:39 - Medications Medications: Current Medications Famotidine (Pepcid) 40 mg PO HS [facility] Last Admin: 10/03/17 21:21 Dose: 40 mg Heparin Sodium (Porcine) (Heparin) 5,000 units SC Q12 BENJA PRN Reason: Protocol Last Admin: 10/04/17 11:05 Dose: 5,000 units Hydralazine HCl (Apresoline) 10 mg IVP Q6 PRN PRN Reason: sbp > 180 or DBP > 100 Last Admin: 10/04/17 06:46 Dose: 10 mg Hydralazine HCl (Apresoline) 100 mg PO BID [facility] Last Admin: 10/04/17 18:13 Dose: 100 mg Sodium Chloride (Sodium Chloride 0.45%) 1,000 mls @ 100 mls/hr IV .Q10H [facility] Last Admin: 10/04/17 11:25 Dose: 100 mls/hr Nifedipine (Procardia Xl) 90 mg PO DAILY [facility] Last Admin: 10/04/17 11:24 Dose: 90 mg Ondansetron HCl (Zofran Inj) 4 mg IVP Q4H PRN PRN Reason: Nausea/Vomiting Last Admin: 10/04/17 16:35 Dose: 4 mg Potassium Chloride (K-Dur 20 Meq Er Tab) 20 meq PO Q4 [facility] Stop: 10/04/17 20:01 Last Admin: 10/04/17 18:13 Dose: 20 meq Tamsulosin HCl (Flomax) 0.4 mg PO DAILY [facility] Last Admin: 10/04/17 11:15 Dose: 0.4 mg Results - Vital Signs Recent Vital Signs: Last Vital Signs Temp 98.3 F 10/04/17 17:55 Pulse 67 10/04/17 18:13 Resp 20 10/04/17 17:55 BP 158/68 H 10/04/17 18:13 Pulse Ox 96 10/04/17 06:00 - Labs Result Diagrams: 10/04/17 06:00 10/04/17 17:35 Labs: Laboratory Results - last 24 hr 10/03/17 10/03/17 10/04/17 18:12 21:05 05:00 WBC RBC Hgb Hct MCV MCH MCHC RDW Plt Count MPV Gran % Lymph % (Auto) [place] % (Auto) Eos % (Auto) Baso % (Auto) Gran # Lymph # (Auto) [place] # (Auto) Eos # (Auto) Baso # (Auto) Sodium 145 Potassium 3.9 Chloride 105 Carbon Dioxide 19 L Anion Gap 24 H BUN 136 H* Creatinine 13.9 H* D Est GFR ( Amer) 4 Est GFR (Non-Af Amer) 3 Random Glucose 188 H Calcium 10.6 H Phosphorus Magnesium Total Bilirubin 0.6 AST 28 ALT 46 Alkaline Phosphatase 84 Total Protein 7.3 Albumin 4.3 Globulin 3.0 Albumin/Globulin Ratio 1.4 Urine Osmolality 475 Ur Random Sodium Blood Type B POSITIVE Antibody Screen Negative BBK History Checked Patient has bt 10/04/17 10/04/17 10/04/17 05:00 06:00 06:00 WBC 8.8 D RBC 4.09 Hgb 12.2 L Hct 34.2 L MCV 83.6 MCH 29.8 MCHC 35.7 RDW 12.8 Plt Count 284 MPV 9.2 Gran % 89.4 H Lymph % (Auto) 8.9 L [place] % (Auto) 1.4 Eos % (Auto) 0.2 L Baso % (Auto) 0.1 Gran # 7.89 H Lymph # (Auto) 0.8 L [place] # (Auto) 0.1 Eos # (Auto) 0.0 Baso # (Auto) 0.01 Sodium 151 H Potassium 3.9 Chloride 106 Carbon Dioxide 28 Anion Gap 22 H BUN 89 H Creatinine 6.8 H Est GFR ( Amer) 10 Est GFR (Non-Af Amer) 8 Random Glucose 129 H Calcium 10.4 Phosphorus 5.7 H Magnesium 2.4 H Total Bilirubin 0.7 AST 28 ALT 39 Alkaline Phosphatase 83 Total Protein 7.8 Albumin 4.4 Globulin 3.4 Albumin/Globulin Ratio 1.3 Urine Osmolality Ur Random Sodium 89 Blood Type Antibody Screen BBK History Checked 10/04/17 10/04/17 13:00 17:35 WBC RBC Hgb Hct MCV MCH MCHC RDW Plt Count MPV Gran % Lymph % (Auto) [place] % (Auto) Eos % (Auto) Baso % (Auto) Gran # Lymph # (Auto) [place] # (Auto) Eos # (Auto) Baso # (Auto) Sodium 147 146 Potassium 3.3 L 3.8 Chloride 104 103 Carbon Dioxide 28 29 Anion Gap 19 18 BUN 58 H 45 H Creatinine 3.4 H 2.5 H Est GFR ( Amer) 21 31 Est GFR (Non-Af Amer) 18 25 Random Glucose 165 H 185 H Calcium 10.1 10.1 Phosphorus 4.3 Magnesium 2.2 Total Bilirubin 0.6 AST 25 ALT 37 Alkaline Phosphatase 79 Total Protein 7.5 Albumin 4.3 Globulin 3.2 Albumin/Globulin Ratio 1.3 Urine Osmolality Ur Random Sodium Blood Type Antibody Screen BBK History Checked
[2017-10-04 18:48] LABS: CREATININE,RANDOM URINE 59 mg/dL; TOTAL PROTEIN,RANDOM URINE 28 mg/L
--- NOTE | 2017-10-04 19:14 | PN ---
DATE: 10/04/2017 SUBJECTIVE: The patient was admitted with urinary retention, renal failure. It appears the patient has postoperative urinary retention from a laparoscopic cholecystectomy done a few weeks ago. Mckinley catheter has been inserted and yesterday, the patient drained 3700 mL of urine, today so far 3300 mL on the first shift and 1800 mL on the second shift. The patient's creatinine was 24.6 on admission, has now come down to 2.5. His GFR is improving, although still low. Plan for now is to continue Mckinley catheter drainage. Mckinley should not be removed given the marked urinary retention. He had no hydronephrosis on CT scan, although the bladder was still markedly distended. Unclear if catheter was clamped or temporarily blocked during the CT scan, but appears to be draining adequately now. A full consultation to follow with continuing him on tamsulosin at this point, but the Mckinley catheter should not be removed and likely the patient will be discharged home with the indwelling Mckinley to follow up in my office. Santi Osuna MD
[2017-10-05 06:18] VITALS: O2SAT 98
[2017-10-05 06:55] LABS: BASO # 0.01 K/mm3 (0.0-2.0); BASO % 0.2 % (0.0-3.0); GRAN # 5.17 (1.4-6.5); GRAN % 78.9 % (50.0-68.0); HEMOGLOBIN 12.2 g/dL (14.0-18.0); LYMPH # 0.8 (1.2-3.4); LYMPH % 12.8 % (22.0-35.0); MEAN CELL VOLUME 86.7 fl (80.0-105.0); MEAN CORPUSCULAR HEMOGLOBIN 29.5 pg (25.0-35.0); MEAN CORPUSCULAR HGB CONC 34.1 g/dl (31.0-37.0); MEAN PLATELET VOLUME 9.1 fl (7.0-11.0); MONO # 0.5 (0.1-0.6); MONO % 8.1 % (1.0-6.0); RBC 4.13 10^6/uL (3.5-6.1); RED CELL DISTRIBUTION WIDTH 12.7 % (11.5-14.5); WHITE BLOOD COUNT 6.6 10^3/ul (4.5-11.0)
[2017-10-05 07:15] LABS: BLOOD UREA NITROGEN 24 mg/dL (7-21); CALCIUM 9.9 mg/dL (8.4-10.5); GFR AFRICAN-AMERICAN > 60; GFR NON-AFRICAN AMERICAN 54
[2017-10-05] MEDS: NIFEdipine 90 mg ER Tab PO SCH (09:54)
[2017-10-05 10:25] LABS: ALB/GLOB RATIO 1.4 (1.1-1.8); ALBUMIN 4.2 g/dL (3.0-4.8); ALT/SGPT 38 U/L (7-56); AST/SGOT 35 U/L (17-59); BLOOD UREA NITROGEN 21 mg/dL (7-21); CALCIUM 9.7 mg/dL (8.4-10.5); GFR AFRICAN-AMERICAN > 60; GFR NON-AFRICAN AMERICAN > 60
[2017-10-05] MEDS ORDERED: Potassium Chloride 20 mEq ER Tab PO ONE (10:46)
--- NOTE | 2017-10-05 10:51 | CP.PCM.PN ---
Subjective - Date & Time of Evaluation Date of Evaluation: 10/05/17 Time of Evaluation: 10:46 - Subjective Subjective: Nephrology Consultation Note: Assessment: stable severe Acute Kidney Injury (N17.9) with uremia likely due to obstructive uropathy, urine retention due to prostatomegaly; improved s/p daley Hypernatremia, hypokalemia, hypokalemia severe uncontrolled HTN Hyperphosphatemia (E83.39) cholelithiasis s/p recent lap tai Plan renal function close to normal. d/c IVF Hypertension control with meds as ordered. resume home bp meds including ARB/ hctz. nifedipine. hydralazine 50 mg bid at d/c Monitor Input/Output, daily weights and renal function with basic metabolic panel continue with flomax urology consult appreciated, Please continue with indwelling daley catheter at d /c supplement lytes as needed Dose meds/antibiotics for improved GFR. Glycemic control Further work up/management as per primary team pt stable for d/c from renal perspective when planned Thanks for allowing me to participate in care of your patient. patient was advised to f/up in office 1-2 week. Please call if any Qs. had d/w team and daughter bedside Dr Danie Okeefe Office: [phone] Chief Complaint; unable to urinate Reason for consult: severe WINSTON and uremia HPI: Pt is a 77 M with hx of hypertension (years) and cholelithiasis s/p recent lap tai presented with complaints of inability to urinate for last 7 days. pt says he had loose stool for last few days but no urine. he denies symptoms of BPH prior to this in ER daley was placed and 3.3 L urine came out Denies OTC/herbal meds or NSAIDs No recent iodinated contrast exposure. No obvious episodes of low BP. in fact BP high no hx of kidney disease in past ROS: Cardiovascular: No chest pain. Pulmonary: No shortness of breath Gastrointestinal: denies abdominal pain no nausea. No vomiting. Genitourinary: No pain while urinating. Denies blood in urine. now has daley All other negative except as mentioned in HPI Physical Examination: General Appearance: Comfortable, in no acute respiratory distress, co-operative . Vitals reviewed and noted as below Head; Atraumatic, normocephalic ENT: no ulcers no thrush. Tongue is midline. Oropharynx: no rash or ulcers. EYES: Pupils are equal, round and reactive to light accommodation. Eye muscles and extraocular movement intact. Sclera is anicteric. Neck; supple no lymphadenopathy, no thyromegaly or bruit Lungs: Normal respiratory rate/effort. Breath sounds bilateral equal and clear Heart: Normal rate. s1s2 normal. No rub or gallop. Extremities: no edema. No varicose veins Neurological: Patient is alert, awake and oriented to person, place and time. No focal deficit. Strength bilateral appropriate and equal Skin: Warm and dry. Normal turgor. No rash. Palpitation: Normal elasticity for age Abdomen: Abdomen is soft. Bowel sounds +. There is no abdominal tenderness, no guarding/rigidity no organomegaly. s/p lap tai Psych: normal insight and normal affect/mood MSK: no joint tenderness or swelling. Digits and nails normal, no deformity : kidney or bladder not palpable. has daley Labs/imaging reviewed. Past medical history, past surgical history, family history, social history, allergy reviewed and noted as below Family hx: no hx of CKD. Rest non-contributory CT abdomen: large bladder CT in 2017: enlarged prostate Objective - Vital Signs/Intake and Output Vital Signs (last 24 hours): Temp Pulse Resp BP Pulse Ox 98.2 F 60 19 182/81 H 98 10/05/17 06:00 10/05/17 09:55 10/05/17 06:00 10/05/17 09:55 10/05/17 06:00 Intake and Output: 10/05/17 10/05/17 06:59 18:59 Intake Total 1500 Output Total 1400 Balance 100 - Medications Medications: Current Medications Famotidine (Pepcid) 40 mg PO HS [facility]ENJA Last Admin: 10/04/17 22:14 Dose: 40 mg Heparin Sodium (Porcine) (Heparin) 5,000 units SC Q12 BENJA PRN Reason: Protocol Last Admin: 10/05/17 09:54 Dose: 5,000 units Hydralazine HCl (Apresoline) 10 mg IVP Q6 PRN PRN Reason: sbp > 180 or DBP > 100 Last Admin: 10/04/17 06:46 Dose: 10 mg Hydralazine HCl (Apresoline) 100 mg PO BID BENJA Last Admin: 10/05/17 09:55 Dose: 100 mg Nifedipine (Procardia Xl) 90 mg PO DAILY [facility] Last Admin: 10/05/17 09:54 Dose: 90 mg Ondansetron HCl (Zofran Inj) 4 mg IVP Q4H PRN PRN Reason: Nausea/Vomiting Last Admin: 10/04/17 16:35 Dose: 4 mg Potassium Chloride (K-Dur 20 Meq Er Tab) 40 meq PO ONCE ONE Stop: 10/05/17 10:47 Tamsulosin HCl (Flomax) 0.4 mg PO DAILY [facility] Last Admin: 10/05/17 09:53 Dose: 0.4 mg - Labs Labs: 10/05/17 06:30 10/05/17 09:45 PT 13.5 SECONDS (9.4-12.5) H 10/03/17 15:50 INR 1.18 (0.93-1.08) H 10/03/17 15:50 APTT 28.2 Seconds (25.1-36.5) 10/03/17 15:50
--- NOTE | 2017-10-05 11:07 | CP.PCM.PN ---
Subjective - Date & Time of Evaluation Date of Evaluation: 10/05/17 Time of Evaluation: 07:30 - Subjective Subjective: General Surgery Progress Note for Dr. Anglin Patient seen and examined this AM. Patient is doing well and has had copious urine output overnight, daley is still in place. Patient denies f/c/n/v, abdominal pain and distention. Objective - Vital Signs/Intake and Output Vital Signs (last 24 hours): Temp Pulse Resp BP Pulse Ox 98.2 F 60 19 182/81 H 98 10/05/17 06:00 10/05/17 09:55 10/05/17 06:00 10/05/17 09:55 10/05/17 06:00 Intake and Output: 10/05/17 10/05/17 06:59 18:59 Intake Total 1500 Output Total 1400 Balance 100 - Medications Medications: Current Medications Famotidine (Pepcid) 40 mg PO HS [facility] Last Admin: 10/04/17 22:14 Dose: 40 mg Heparin Sodium (Porcine) (Heparin) 5,000 units SC Q12 BENJA PRN Reason: Protocol Last Admin: 10/05/17 09:54 Dose: 5,000 units Hydralazine HCl (Apresoline) 10 mg IVP Q6 PRN PRN Reason: sbp > 180 or DBP > 100 Last Admin: 10/04/17 06:46 Dose: 10 mg Hydralazine HCl (Apresoline) 100 mg PO BID [facility] Last Admin: 10/05/17 09:55 Dose: 100 mg Nifedipine (Procardia Xl) 90 mg PO DAILY [facility] Last Admin: 10/05/17 09:54 Dose: 90 mg Ondansetron HCl (Zofran Inj) 4 mg IVP Q4H PRN PRN Reason: Nausea/Vomiting Last Admin: 10/04/17 16:35 Dose: 4 mg Tamsulosin HCl (Flomax) 0.4 mg PO DAILY [facility] Last Admin: 10/05/17 09:53 Dose: 0.4 mg - Labs Labs: 10/05/17 06:30 10/05/17 09:45 PT 13.5 SECONDS (9.4-12.5) H 10/03/17 15:50 INR 1.18 (0.93-1.08) H 10/03/17 15:50 APTT 28.2 Seconds (25.1-36.5) 10/03/17 15:50 - Constitutional Appears: Well, Non-toxic, No Acute Distress - Head Exam Head Exam: ATRAUMATIC, NORMOCEPHALIC - ENT Exam ENT Exam: Mucous Membranes Moist - Respiratory Exam Respiratory Exam: NORMAL BREATHING PATTERN - GI/Abdominal Exam GI & Abdominal Exam: Soft. absent: Distended, Guarding, Rigid, Tenderness - Exam Additional comments: daley in place with clear light yellow urine - Extremities Exam Extremities Exam: absent: Calf Tenderness, Pedal Edema - Neurological Exam Neurological Exam: Alert, Oriented x3 - Psychiatric Exam Psychiatric exam: Normal Affect, Normal Mood - Skin Skin Exam: Dry, Intact, Warm Assessment and Plan - Assessment and Plan (Free Text) Assessment: 77 yr old male POD 15 s/p lap tai with urinary retention and acute renal failure Plan: - patient is clear for D/c from surgical standpoint - Cr normal today at 1.3 - Urology has recommended pt go home with daley - pt has planned out of country trip for 1 month beginning sundayOctober 10, daughter concerned that pt unable to manage bag alone, per Dr. Osuna he would like the patient to either delay his trip and f/u in 2 weeks or go with the leg bag with the understanding that he would need to see a urologist there to have it removed in 2 weeks - Discussed with Dr. Derrek Mackenzie, PGY1
--- NOTE | 2017-10-05 13:32 | CP.PCM.DIS ---
<Emanuel Zavaleta - Last Filed: 10/07/17 16:59> Provider - Provider Date of Admission: 10/03/17 17:14 Attending physician: Sussy Garcia MD Primary care physician: Jason Jones MD Consults: Nephro: Dr. Okeefe Surgery: Dr. Anglin Time Spent in preparation of Discharge (in minutes): 45 Hospital Course - Lab Results Lab Results: Most Recent Lab Values WBC 6.6 10^3/ul (4.5-11.0) D 10/05/17 06:30 RBC 4.13 10^6/uL (3.5-6.1) 10/05/17 06:30 Hgb 12.2 g/dL (14.0-18.0) L 10/05/17 06:30 Hct 35.8 % (42.0-52.0) L 10/05/17 06:30 MCV 86.7 fl (80.0-105.0) D 10/05/17 06:30 MCH 29.5 pg (25.0-35.0) 10/05/17 06:30 MCHC 34.1 g/dl (31.0-37.0) 10/05/17 06:30 RDW 12.7 % (11.5-14.5) 10/05/17 06:30 Plt Count 265 10^3/uL (120.0-450.0) 10/05/17 06:30 MPV 9.1 fl (7.0-11.0) 10/05/17 06:30 Gran % 78.9 % (50.0-68.0) H 10/05/17 06:30 Lymph % (Auto) 12.8 % (22.0-35.0) L 10/05/17 06:30 Maury % (Auto) 8.1 % (1.0-6.0) H 10/05/17 06:30 Eos % (Auto) 0.0 % (1.5-5.0) L 10/05/17 06:30 Baso % (Auto) 0.2 % (0.0-3.0) 10/05/17 06:30 Gran # 5.17 (1.4-6.5) 10/05/17 06:30 Lymph # (Auto) 0.8 (1.2-3.4) L 10/05/17 06:30 Maury # (Auto) 0.5 (0.1-0.6) 10/05/17 06:30 Eos # (Auto) 0.0 (0.0-0.7) 10/05/17 06:30 Baso # (Auto) 0.01 K/mm3 (0.0-2.0) 10/05/17 06:30 PT 13.5 SECONDS (9.4-12.5) H 10/03/17 15:50 INR 1.18 (0.93-1.08) H 10/03/17 15:50 APTT 28.2 Seconds (25.1-36.5) 10/03/17 15:50 pO2 48 mm/Hg (30-55) 10/03/17 15:50 VBG pH 7.24 (7.32-7.43) L 10/03/17 15:50 VBG pCO2 33.0 (40-60) L 10/03/17 15:50 VBG HCO3 14.1 mmol/l (21-28) L 10/03/17 15:50 VBG Total CO2 15.1 mmol.L (22-28) L 10/03/17 15:50 VBG O2 Sat (Calc) 82.5 % (40-65) H 10/03/17 15:50 VBG Base Excess -12.2 mmol/L (0.0-2.0) L 10/03/17 15:50 VBG Potassium 5.9 mmol/L (3.6-5.2) H 10/03/17 15:50 Sodium 128.0 mmol/L (132-148) L 10/03/17 15:50 Chloride 96.0 mmol/L (98-107) L 10/03/17 15:50 Glucose 131 mg/dl (75-110) H 10/03/17 15:50 Lactate 0.7 mmol/L (0.7-2.1) 10/03/17 15:50 FiO2 21.0 % 10/03/17 15:50 Sodium 143 mmol/L (132-148) 10/05/17 09:45 Potassium 3.5 mmol/L (3.6-5.0) L 10/05/17 09:45 Chloride 103 mmol/L (98-107) 10/05/17 09:45 Carbon Dioxide 26 mmol/L (21-33) 10/05/17 09:45 Anion Gap 18 (10-20) 10/05/17 09:45 BUN 21 mg/dL (7-21) 10/05/17 09:45 Creatinine 1.1 mg/dl (0.8-1.5) 10/05/17 09:45 Est GFR ( Amer) > 60 10/05/17 09:45 Est GFR (Non-Af Amer) > 60 10/05/17 09:45 POC Glucose (mg/dL) 115 mg/dL (65-110) H 10/05/17 08:11 Random Glucose 142 mg/dL (70-110) H 10/05/17 09:45 Calcium 9.7 mg/dL (8.4-10.5) 10/05/17 09:45 Phosphorus 4.3 mg/dL (2.5-4.5) 10/04/17 13:00 Magnesium 2.2 mg/dL (1.7-2.2) 10/04/17 13:00 Total Bilirubin 0.5 mg/dL (0.2-1.3) 10/05/17 09:45 AST 35 U/L (17-59) 10/05/17 09:45 ALT 38 U/L (7-56) 10/05/17 09:45 Alkaline Phosphatase 63 U/L (38-126) 10/05/17 09:45 Total Protein 7.3 g/dL (5.8-8.3) 10/05/17 09:45 Albumin 4.2 g/dL (3.0-4.8) 10/05/17 09:45 Globulin 3.1 gm/dL 10/05/17 09:45 Albumin/Globulin Ratio 1.4 (1.1-1.8) 10/05/17 09:45 Venous Blood Potassium 5.9 mmol/L (3.6-5.2) H 10/03/17 15:50 Urine Color Yellow (YELLOW) 10/03/17 16:07 Urine Appearance Clear (CLEAR) 10/03/17 16:07 Urine pH 6.0 (4.7-8.0) 10/03/17 16:07 Ur Specific [place] 1.010 (1.005-1.035) 10/03/17 16:07 Urine Protein Negative mg/dL (<30 mg/dL) 10/03/17 16:07 Urine Glucose (UA) Negative mg/dL (NEGATIVE) 10/03/17 16:07 Urine Ketones Negative mg/dL (NEGATIVE) 10/03/17 16:07 Urine Blood Negative (NEGATIVE) 10/03/17 16:07 Urine Nitrate Negative (NEGATIVE) 10/03/17 16:07 Urine Bilirubin Negative (NEGATIVE) 10/03/17 16:07 Urine Urobilinogen 0.2 E.U./dL (<1 E.U./dL) 10/03/17 16:07 Ur Leukocyte Esterase Negative George/uL (NEGATIVE) 10/03/17 16:07 Urine Osmolality 475 mosm/kg (300-1000) 10/04/17 05:00 Ur Random Creatinine 57 mg/dL 10/05/17 06:00 U Random Total Protein 28 mg/L 10/04/17 18:24 Ur Random Sodium 117 meq/L 10/04/17 18:24 Blood Type B POSITIVE 10/03/17 18:12 Antibody Screen Negative 10/03/17 18:12 BBK History Checked Patient has bt 10/03/17 18:12 - Hospital Course Hospital Course: 76 yo male with PMH of HTN and s/p laparoscopic cholecystectomy (09/20/2017) presented with urinary retention on ___. In the ED, a daley was placed that drained 3.2 mls of urine, providing relief for patient. In the ED, patient was found to have a CR of 24, likely 2/2 obstructive uropathy. Patient was started on IVF of 1/2NS @ 100 cc/hr; electrolytes were repleted; and CT A/P was performed which showed no hydronephrosis, stable enlarged prostate, and marked distension of urinary bladder. Patient was also started on bicarb and his benicar was held until WINSTON resolved. Patient was also complainging of diarrhea , but C. Diff in the office 2 days before admission was negative so flagyl was held. On day of discharge, patient was advised to follow up with Urology, Dr. Osuna and keep indwelling daley in. Patient was also prescribed new blood pressure medication - hydralazine - for better control of BP. 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 Vaughn for better blood pressure control. Patient was advised to follow up with his PMD, Dr. Jones. Discharge Exam - Head Exam Head Exam: ATRAUMATIC, NORMAL INSPECTION, NORMOCEPHALIC - Eye Exam Eye Exam: EOMI, Normal appearance, PERRL Pupil Exam: NORMAL ACCOMODATION, PERRL - Respiratory Exam Respiratory Exam: Clear to PA & Lateral, NORMAL BREATHING PATTERN, UNREMARKABLE - Cardiovascular Exam Cardiovascular Exam: REGULAR RHYTHM, RRR, +S1, +S2. absent: Gallop - GI/Abdominal Exam GI & Abdominal Exam: Normal Bowel Sounds, Unremarkable - Neurological Exam Neurological exam: Alert, CN II-XII Intact, Normal Gait, Oriented x3 - Psychiatric Exam Psychiatric exam: Normal Affect, Normal Mood - Skin Skin Exam: Dry, Intact, Normal Color, Warm Discharge Plan - Discharge Medications Prescriptions: hydrALAZINE [Apresoline] 25 mg PO BID #30 tab - Follow Up Plan Condition: FAIR Disposition: HOME/ ROUTINE Instructions: Acute Kidney Injury (DC), Hyperkalemia (DC), Hyperkalemia (GEN) Additional Instructions: 1. Please follow up with your primary care doctor - Dr. Jones - within one week 2. Please follow up with your urologist, Dr. Osuna, within one week, call Dr. Osuna's office to make appointment 3. Please take your new blood pressure medication, Hydralazine, as directed 4. Please DO NOT take out your catheter 5. If your symptoms persist or worsen please report back to the nearest ED Referrals: Jason Jones MD [Primary Care Provider] - <Sussy Garcia - Last Filed: 10/07/17 19:16> Provider - Provider Date of Admission: 10/03/17 17:14 Attending physician: Sussy Garcia MD Primary care physician: Jason Jones MD Hospital Course - Lab Results Lab Results: Most Recent Lab Values WBC 6.6 10^3/ul (4.5-11.0) D 10/05/17 06:30 RBC 4.13 10^6/uL (3.5-6.1) 10/05/17 06:30 Hgb 12.2 g/dL (14.0-18.0) L 10/05/17 06:30 Hct 35.8 % (42.0-52.0) L 10/05/17 06:30 MCV 86.7 fl (80.0-105.0) D 10/05/17 06:30 MCH 29.5 pg (25.0-35.0) 10/05/17 06:30 MCHC 34.1 g/dl (31.0-37.0) 10/05/17 06:30 RDW 12.7 % (11.5-14.5) 10/05/17 06:30 Plt Count 265 10^3/uL (120.0-450.0) 10/05/17 06:30 MPV 9.1 fl (7.0-11.0) 10/05/17 06:30 Gran % 78.9 % (50.0-68.0) H 10/05/17 06:30 Lymph % (Auto) 12.8 % (22.0-35.0) L 10/05/17 06:30 Maury % (Auto) 8.1 % (1.0-6.0) H 10/05/17 06:30 Eos % (Auto) 0.0 % (1.5-5.0) L 10/05/17 06:30 Baso % (Auto) 0.2 % (0.0-3.0) 10/05/17 06:30 Gran # 5.17 (1.4-6.5) 10/05/17 06:30 Lymph # (Auto) 0.8 (1.2-3.4) L 10/05/17 06:30 Maury # (Auto) 0.5 (0.1-0.6) 10/05/17 06:30 Eos # (Auto) 0.0 (0.0-0.7) 10/05/17 06:30 Baso # (Auto) 0.01 K/mm3 (0.0-2.0) 10/05/17 06:30 PT 13.5 SECONDS (9.4-12.5) H 10/03/17 15:50 INR 1.18 (0.93-1.08) H 10/03/17 15:50 APTT 28.2 Seconds (25.1-36.5) 10/03/17 15:50 pO2 48 mm/Hg (30-55) 10/03/17 15:50 VBG pH 7.24 (7.32-7.43) L 10/03/17 15:50 VBG pCO2 33.0 (40-60) L 10/03/17 15:50 VBG HCO3 14.1 mmol/l (21-28) L 10/03/17 15:50 VBG Total CO2 15.1 mmol.L (22-28) L 10/03/17 15:50 VBG O2 Sat (Calc) 82.5 % (40-65) H 10/03/17 15:50 VBG Base Excess -12.2 mmol/L (0.0-2.0) L 10/03/17 15:50 VBG Potassium 5.9 mmol/L (3.6-5.2) H 10/03/17 15:50 Sodium 128.0 mmol/L (132-148) L 10/03/17 15:50 Chloride 96.0 mmol/L (98-107) L 10/03/17 15:50 Glucose 131 mg/dl (75-110) H 10/03/17 15:50 Lactate 0.7 mmol/L (0.7-2.1) 10/03/17 15:50 FiO2 21.0 % 10/03/17 15:50 Sodium 143 mmol/L (132-148) 10/05/17 09:45 Potassium 3.5 mmol/L (3.6-5.0) L 10/05/17 09:45 Chloride 103 mmol/L (98-107) 10/05/17 09:45 Carbon Dioxide 26 mmol/L (21-33) 10/05/17 09:45 Anion Gap 18 (10-20) 10/05/17 09:45 BUN 21 mg/dL (7-21) 10/05/17 09:45 Creatinine 1.1 mg/dl (0.8-1.5) 10/05/17 09:45 Est GFR ( Amer) > 60 10/05/17 09:45 Est GFR (Non-Af Amer) > 60 10/05/17 09:45 POC Glucose (mg/dL) 115 mg/dL (65-110) H 10/05/17 08:11 Random Glucose 142 mg/dL (70-110) H 10/05/17 09:45 Calcium 9.7 mg/dL (8.4-10.5) 10/05/17 09:45 Phosphorus 4.3 mg/dL (2.5-4.5) 10/04/17 13:00 Magnesium 2.2 mg/dL (1.7-2.2) 10/04/17 13:00 Total Bilirubin 0.5 mg/dL (0.2-1.3) 10/05/17 09:45 AST 35 U/L (17-59) 10/05/17 09:45 ALT 38 U/L (7-56) 10/05/17 09:45 Alkaline Phosphatase 63 U/L (38-126) 10/05/17 09:45 Total Protein 7.3 g/dL (5.8-8.3) 10/05/17 09:45 Albumin 4.2 g/dL (3.0-4.8) 10/05/17 09:45 Globulin 3.1 gm/dL 10/05/17 09:45 Albumin/Globulin Ratio 1.4 (1.1-1.8) 10/05/17 09:45 Venous Blood Potassium 5.9 mmol/L (3.6-5.2) H 10/03/17 15:50 Urine Color Yellow (YELLOW) 10/03/17 16:07 Urine Appearance Clear (CLEAR) 10/03/17 16:07 Urine pH 6.0 (4.7-8.0) 10/03/17 16:07 Ur Specific [place] 1.010 (1.005-1.035) 10/03/17 16:07 Urine Protein Negative mg/dL (<30 mg/dL) 10/03/17 16:07 Urine Glucose (UA) Negative mg/dL (NEGATIVE) 10/03/17 16:07 Urine Ketones Negative mg/dL (NEGATIVE) 10/03/17 16:07 Urine Blood Negative (NEGATIVE) 10/03/17 16:07 Urine Nitrate Negative (NEGATIVE) 10/03/17 16:07 Urine Bilirubin Negative (NEGATIVE) 10/03/17 16:07 Urine Urobilinogen 0.2 E.U./dL (<1 E.U./dL) 10/03/17 16:07 Ur Leukocyte Esterase Negative George/uL (NEGATIVE) 10/03/17 16:07 Urine Osmolality 475 mosm/kg (300-1000) 10/04/17 05:00 Ur Random Creatinine 57 mg/dL 10/05/17 06:00 U Random Total Protein 28 mg/L 10/04/17 18:24 Ur Random Sodium 117 meq/L 10/04/17 18:24 Blood Type B POSITIVE 10/03/17 18:12 Antibody Screen Negative 10/03/17 18:12 BBK History Checked Patient has bt 10/03/17 18:12 Attending/Attestation - Attestation I have personally seen and examined this patient.: Yes I have fully participated in the care of the patient.: Yes I have reviewed all pertinent clinical information, including history, physical exam and plan: Yes Notes (Text): 10/07/17 19:14 77 year old male with past medical history of hypertension and recent lap tai (09/20/17) who presented with complaint of generalized weakness and fatigue. He was found to have acute renal failure, hyperkalemia and metabolic acidosis. WINSTON was likely multifactorial including urinary retention, diarrhea, medications. Daley was placed and patient put over [address] abd/pelvis showed distended urinary bladder and enlarged prostate. He was seen by nephrology and urology. His creatinine level improved. Hyperkalemia and acidosis resolved. He was on nifepidine for hypertension. Benicar was initially held due to WINSTON but resumed once WINSTON resolved. He was also started on hydralazine. Overall patient's symptoms improved. WINSTON resolved. He is discharged home with daley to follow up with pmd. Follow up with nephrology and urology. Sussy Garcia MD Hospitalist.
--- NOTE | 2017-10-05 15:58 | CON ---
DATE: 10/05/2017 CONSULTATION CHIEF COMPLAINT: Urinary retention, weakness, and fatigue. HISTORY OF PRESENT ILLNESS: This is a 77-year-old male who was seen in his room at [facility]. The patient had gallbladder surgery a few weeks ago. He now presented to the emergency room complaining of difficulty urinating. He reports prior to this surgery, he was voiding well. He had no dysuria, frequency, urgency, or gross hematuria. He reports voiding with a good force of urinary stream and no straining. He does report nocturia one time per night for the last few years. The patient was found to have abdominal distention and urinary retention. A Mckinley catheter was placed. Reportedly, there was about 2 L of urine drained from his bladder. The patient was found to have acute renal failure as well and he was admitted for treatment. A consultation was then requested regarding the above. PAST MEDICAL HISTORY: Significant for hypertension, hyperlipidemia. PAST SURGICAL HISTORY: Cholecystectomy on 09/20. MEDICATIONS: Include hydralazine, Flomax, subcu heparin, Pepcid, Procardia, and Zofran. ALLERGIES: NO KNOWN DRUG ALLERGIES. FAMILY HISTORY: Noncontributory for this admission. SOCIAL HISTORY: No smoking or EtOH use. REVIEW OF SYSTEMS: A 12-point review of systems was obtained. Positive for urinary retention, difficulty voiding. All other systems are currently negative. PHYSICAL EXAMINATION: GENERAL: The patient is awake and alert. He is in no acute distress. VITAL SIGNS: He is afebrile. Temperature of 98.2, pulse 66, BP 164/80, and respirations 20. NECK: Supple. There is no thyromegaly or adenopathy. CHEST: Reveals a normal inspiratory effort. CARDIAC: Shows positive S1, S2. There is no peripheral edema noted. ABDOMEN: The abdomen is soft, nontender, and nondistended. There is no hepatosplenomegaly. There is no costovertebral angle tenderness. There are healing incisions from his cholecystectomy noted. : Phallus is normal. There is a Mckinley catheter in place draining clear colored urine. Scrotum is normal. Testes bilaterally descended, nontender, no masses. Epididymides are normal. EXTREMITIES: There is no cyanosis or edema noted. LABORATORY DATA: WBC count normal at 6.6. Creatinine was 24.6 on admission, is now down to 1.1. His GFR has now returned to normal, greater than 60. RADIOLOGIC EXAM: The patient had a CT scan of the abdomen and pelvis on 10/03, which showed kidneys were unremarkable. No obstruction. No wall thickening. The bladder was markedly distended despite the presence a well-placed Mckinley catheter. IMPRESSION AND PLAN: This is a 77-year-old male with urinary retention postoperatively from a cholecystectomy. Urologically, the patient is currently stable with the Mckinley catheter in place. He has been started on tamsulosin which she is taking daily. Plan for now will be to continue the Mckinley catheter as the patient had marked bladder distention with renal failure. I would plan to leave the Mckinley for approximately 2 weeks, at which point Mckinley can be removed for a voiding trial and we will need to check a postvoid residual. The patient can follow up in my office for the voiding trial and recheck. If the patient wants, he can follow up with other urologists of his choosing. Once the patient is voiding adequately, we will need to assess him for BPH and check a PSA to rule out any evidence of prostate cancer. Thank you for allowing me to participate in the care of this patient. We will follow him with you. Santi Osuna MD
[2017-10-05 17:34] VITALS: BP 153/78; PULSE 88; RESP 16; TEMP 97.8
== END 2017-10-05 20:07 | disposition home or self-care (01) | DRG 683 ==
LOC: ED 14:47 → ERH 17:14 → 2RNO 18:43
PROVIDERS: ADMIT Internal Medicine; ATTEND Internal Medicine
DX: N17.9 Acute kidney failure, unspecified (principal); E87.2 Acidosis; E87.0 Hyperosmolality and hypernatremia; N13.8 Other obstructive and reflux uropathy; K59.00 Constipation, unspecified; I10 Essential (primary) hypertension; E87.6 Hypokalemia; E87.5 Hyperkalemia; E83.39 Other disorders of phosphorus metabolism; E78.5 Hyperlipidemia, unspecified; N32.89 Other specified disorders of bladder; N40.1 Benign prostatic hyperplasia with lower urinary tract symptoms; Z87.891 Personal history of nicotine dependence; Z90.49 Acquired absence of other specified parts of digestive tract

== ENCOUNTER 2017-10-24 14:48 | Emergency (ER) | payer MEDICARE, OTHER ==
[2017-10-24 14:49] VITALS: BMI 25.6
--- NOTE | 2017-10-24 16:09 | ED PDOC ---
Arrival/HPI - General Time Seen by Provider: 10/24/17 15:13 Historian: Patient - History of Present Illness Narrative History of Present Illness (Text): 10/24/17 16:05 80 yo M states that he was sent to the ER for IV antibiotics and possible admission. Patient has had a daley catheter with a leg bag on since 10/03/17 that was initially inserted in this ER. He then went to f/u with his urologist Dr. Osuna on 10/16/17, the daley was removed and replaced, and his dose of flomax was increased. He went to see his urologist yesterday had the daley replaced again and a urine test was done, patient was found to have a UTI and Rx cipro. He was called today by his urologist to go to the ER to have IV antibiotics and to be admitted. Otherwise he denies any fever, chills, abdominal pain, N/V, or back pain. He states that he feels well and does not wish to be admitted. KAREN Jones Past Medical History - Infectious Disease Hx of Infectious Diseases: None - Tetanus Immunization Tetanus Immunization: Unknown - Cardiac Hx Hypertension: Yes - Pulmonary Hx Respiratory Disorders: No - Neurological Hx Paralysis: No - HEENT Hx HEENT Disorder: No - Renal Hx Renal Disorder: No - Endocrine/Metabolic Hx Endocrine Disorders: No - Hematological/Oncological Hx Blood Transfusions: No Hx Blood Transfusion Reaction: No - Integumentary Hx Dermatological Disorder: No - Musculoskeletal/Rheumatological Hx Musculoskeletal Disorders: No - Gastrointestinal Hx Gastrointestinal Disorders: No - Genitourinary/Gynecological Hx Genitourinary Disorders: No - Psychiatric Hx Emotional Abuse: No Hx Physical Abuse: No Hx Substance Use: No - Surgical History Hx Cholecystectomy: Yes (september 2017) - Anesthesia Hx Anesthesia Reactions: No Hx Malignant Hyperthermia: No - Suicidal Assessment Feels Threatened In Home Enviroment: No Family/Social History Family/Social History: No Known Family HX Smoking Status: Never Smoked Hx Alcohol Use: Yes (OCCASIONAL WINE) Hx Substance Use: No Allergies/Home Meds Allergies/Adverse Reactions: Allergies No Known Allergies Allergy (Verified 11/08/16 19:39) Home Medications: Home Meds Medication Instructions Recorded Confirmed Olmesartan/Hydrochlorothiazide 1 tab PO DAILY 11/08/16 10/03/17 [Benicar Hct 20-12.5 mg Tablet] Nifedipine [Adalat cc] 90 mg PO DAILY 09/06/17 10/03/17 Review of Systems - Review of Systems Constitutional: absent: Fatigue, Fevers Respiratory: absent: SOB, Cough Cardiovascular: absent: Chest Pain, Edema Gastrointestinal: absent: Abdominal Pain, Diarrhea, Vomiting Genitourinary Male: Urinary Output Changes. absent: Dysuria, Frequency Musculoskeletal: absent: Arthralgias, Back Pain, Neck Pain Skin: absent: Rash, Pruritis Neurological: absent: Headache, Dizziness Physical Exam Vital Signs Temp Pulse Resp BP Pulse Ox 10/24/17 18:36 98.0 F 79 17 126/81 97 Temperature: Afebrile Blood Pressure: Normal Pulse: Regular Respiratory Rate: Normal Appearance: Positive for: Well-Appearing, Non-Toxic, Comfortable Pain Distress: None Mental Status: Positive for: Alert and Oriented X 3 - Systems Exam Head: Present: Atraumatic, Normocephalic Pupils: Present: PERRL Extroacular Muscles: Present: EOMI Conjunctiva: Present: Normal Mouth: Present: Moist Mucous Membranes Neck: Present: Normal Range of Motion Respiratory/Chest: Present: Clear to Auscultation, Good Air Exchange. No: Respiratory Distress, Accessory Muscle Use Cardiovascular: Present: Regular Rate and Rhythm, Normal S1, S2. No: Murmurs Abdomen: No: Tenderness, Distention, Peritoneal Signs, Guarding Back: Present: Normal Inspection. No: CVA Tenderness, Midline Tenderness Upper Extremity: Present: Normal Inspection. No: Cyanosis, Edema Lower Extremity: Present: Normal Inspection, Other (+Leg bag to the L leg, draining of yellow urine). No: Edema Neurological: Present: GCS=15, CN II-XII Intact, Speech Normal Skin: Present: Warm, Dry, Normal Color. No: Rashes Psychiatric: Present: Alert, Oriented x 3, Normal Insight, Normal Concentration Medical Decision Making ED Course and Treatment: 10/24/17 16:09 Plan : - Labs - IV - UA - Urine cx - Blooc cx - VBG Dr. Osuna's office called, spoke to his expert medical writer, states she will fax over the patient's urine cx results. Urine cx on 10/16/[address] Osuna's office reveal +pseudomonas sensitive to ceftazidime, cefepime, cipro, levaquin, gentamicin, imipenem, meropenem, pipercillin, ticarcillin and tobramycin. Case discussed with Dr. Osuna, who recommends that the patient be admitted as the patient had complained of chills in his office yesterday and had a positive urine cx which grew Pseudomonas. Labs reviewed : wbc 15, lactate 1.9. Patient notified of plan for further observation in the hospital, which he finally agrees to. Case d/w the hospitalist Dr. Hassan, will keep the patient for obs for IV antibiotics. On reevaluation, patient reports no fevers, chills, abdominal pain, nausea or back pain. On exam, patient remains awake alert and oriented 3 in no acute distress. Abdomen soft and nontender, repeat neuro exam shows no focal findings. - Lab Interpretations Lab Results: 10/24/17 17:25 10/24/17 17:25 Lab Results 10/24/17 17:25: pO2 37, VBG pH 7.34, VBG pCO2 60.0, VBG HCO3 32.4 H, VBG Total CO2 34.2 H, VBG O2 Sat (Calc) 72.9 H, VBG Base Excess 4.8 H, VBG Potassium 4.4, Sodium 139.0, Chloride 103.0, Glucose 104, Lactate 1.9, FiO2 21.0, Venous Blood Potassium 4.4 10/24/17 17:25: Sodium 141, Chloride 100, Potassium 4.2, Carbon Dioxide 31, Anion Gap 15, BUN 27 H, Creatinine 1.1, Est GFR ( Amer) > 60, Est GFR ( Non-Af Amer) > 60, Random Glucose 102, Calcium 9.7, Total Bilirubin 0.5, AST 31 , ALT 50, Alkaline Phosphatase 100, Total Protein 7.3, Albumin 3.9, Globulin 3.4 , Albumin/Globulin Ratio 1.2 10/24/17 17:25: WBC 15.7 H D, RBC 3.62, Hgb 10.7 L, Hct 32.2 L, MCV 89.0, MCH 29.6, MCHC 33.2, RDW 12.5, Plt Count 262, MPV 9.1, Gran % 84.3 H, Lymph % (Auto ) 8.4 L, [place] % (Auto) 6.8 H, Eos % (Auto) 0.4 L, Baso % (Auto) 0.1, Gran # 13.21 H, Lymph # (Auto) 1.3, [place] # (Auto) 1.1 H, Eos # (Auto) 0.1, Baso # (Auto ) 0.02 10/24/17 15:40: Urine Color Yellow, Urine Appearance Sl cloudy, Urine pH 6.0, Ur Specific [place] 1.015, Urine Protein 30 H, Urine Glucose (UA) Negative, Urine Ketones Negative, Urine Blood Small H, Urine Nitrate Positive H, Urine Bilirubin Negative, Urine Urobilinogen 0.2, Ur Leukocyte Esterase Large H, Urine RBC 5 - 10, Urine WBC Tntc, Ur Epithelial Cells 6 - 8, Urine Bacteria Many , Urine Other Usperm - Medication Orders Current Medication Orders: Sodium Chloride (Sodium Chloride 0.9%) 1,000 mls @ 100 mls/hr IV .Q10H BENJA Discontinued Medications Ceftriaxone Sodium (Rocephin 1 Gram Ivpb) 1 gm in 100 mls @ 200 mls/hr IVPB STAT STA PRN Reason: Protocol Stop: 10/24/17 16:59 Last Admin: 10/24/17 18:30 Dose: 200 mls/hr eMAR Start Stop Document 10/24/17 18:30 CARLOS (Rec: 10/24/17 18:31 CARLOS [id number]) Intravenous Solution Start Date 10/24/17 Start Time 18:30 End Date 10/24/17 End time 19:00 Total Infusion Time 30 - PA / [employer] / Resident Statement / has reviewed & agrees with the documentation as recorded. Disposition/Present on Arrival - Present on Arrival Any Indicators Present on Arrival: No History of DVT/PE: No History of Uncontrolled Diabetes: No Urinary Catheter: Yes History of Decub. Ulcer: No History Surgical Site Infection Following: None - Disposition Have Diagnosis and Disposition been Completed?: Yes Diagnosis: UTI (urinary tract infection) due to urinary indwelling Daley catheter Disposition: HOSPITALIZED Disposition Time: 18:40 Patient Plan: Observation Condition: STABLE
[2017-10-24] MEDS ORDERED: cefTRIAXone 1 gm 1 GM/100 ML BAG IVPB STA (16:30)
[2017-10-24 17:42] LABS: VENOUS BLOOD GAS BASE EXCESS 4.8 mmol/L (0.0-2.0); VENOUS BLOOD GAS PO2 37 mm/Hg (30-55); VENOUS BLOOD PH 7.34 (7.32-7.43)
[2017-10-24 17:49] LABS: BASO # 0.02 K/mm3 (0.0-2.0); BASO % 0.1 % (0.0-3.0); EOS # 0.1 (0.0-0.7); EOS % 0.4 % (1.5-5.0); GRAN # 13.21 (1.4-6.5); GRAN % 84.3 % (50.0-68.0); HEMOGLOBIN 10.7 g/dL (14.0-18.0); LYMPH # 1.3 (1.2-3.4); LYMPH % 8.4 % (22.0-35.0); MEAN CORPUSCULAR HEMOGLOBIN 29.6 pg (25.0-35.0); MEAN CORPUSCULAR HGB CONC 33.2 g/dl (31.0-37.0); MEAN PLATELET VOLUME 9.1 fl (7.0-11.0); MONO # 1.1 (0.1-0.6); MONO % 6.8 % (1.0-6.0); RBC 3.62 10^6/uL (3.5-6.1); RED CELL DISTRIBUTION WIDTH 12.5 % (11.5-14.5); WHITE BLOOD COUNT 15.7 10^3/ul (4.5-11.0)
[2017-10-24 18:01] LABS: BLOOD UREA NITROGEN 27 mg/dL (7-21); GFR AFRICAN-AMERICAN > 60; GFR NON-AFRICAN AMERICAN > 60
[2017-10-24 18:02] LABS: ALB/GLOB RATIO 1.2 (1.1-1.8); ALBUMIN 3.9 g/dL (3.0-4.8); ALT/SGPT 50 U/L (7-56); AST/SGOT 31 U/L (17-59); CALCIUM 9.7 mg/dL (8.4-10.5)
[2017-10-24 18:30] LABS: URINE BILIRUBIN NEGATIVE (NEGATIVE); URINE BLOOD SMALL (NEGATIVE); URINE GLUCOSE (UA) NEGATIVE (NEGATIVE); URINE LEUKOCYTE ESTERASE LARGE Leu/uL (NEGATIVE); URINE PROTEIN 30 mg/dL (<30 mg/dL); URINE UROBILINOGEN 0.2 E.U./dL (<1 E.U./dL)
[2017-10-24 18:32] LABS: URINE APPEARANCE SL CLOUDY (CLEAR); URINE COLOR YELLOW (YELLOW)
[2017-10-24 18:36] VITALS: BP 126/81; PULSE 79; RESP 17; TEMP 98
[2017-10-24 18:43] LABS: URINE WBC TNTC /hpf (0-6)
[2017-10-24 18:44] LABS: URINE BACTERIA MANY (NEG)
[2017-10-24] MEDS ORDERED: Sodium Chloride 0.9% 1,000 ML IV SCH (18:45)
[2017-10-24 19:42] VITALS: O2SAT 99
--- NOTE | 2017-10-24 23:22 | CP.PCM.HP ---
<Ankit Higuera - Last Filed: 10/24/17 23:19> History of Present Illness - History of Present Illness History of Present Illness: Internal Medicine H&P: Prior to medicine team evaluating patient, he requested to sign out against medical advice. All expected benefits of admission and risks of leaving were explained to patient in detail with patient verbalizing understanding. Patient then signed out against medical advice. Gretta PGY2 Present on Admission - Present on Admission Any Indicators Present on Admission: No Past Patient History - Infectious Disease Hx of Infectious Diseases: None - Tetanus Immunizations Tetanus Immunization: Unknown - Past Social History Smoking Status: Never Smoked - CARDIAC Hx Hypertension: Yes - PULMONARY Hx Respiratory Disorders: No - NEUROLOGICAL Hx Paralysis: No - HEENT Hx HEENT Problems: No - RENAL Hx Chronic Kidney Disease: No - ENDOCRINE/METABOLIC Hx Endocrine Disorders: No - HEMATOLOGICAL/ONCOLOGICAL Hx Blood Transfusions: No Hx Blood Transfusion Reaction: No - INTEGUMENTARY Hx Dermatological Problems: No - MUSCULOSKELETAL/RHEUMATOLOGICAL Hx Musculoskeletal Disorders: No - GASTROINTESTINAL Hx Gastrointestinal Disorders: No - GENITOURINARY/GYNECOLOGICAL Hx Genitourinary Disorders: No - PSYCHIATRIC Hx Emotional Abuse: No Hx Physical Abuse: No Hx Substance Use: No - SURGICAL HISTORY Hx Cholecystectomy: Yes (september 2017) - ANESTHESIA Hx Anesthesia Reactions: No Hx Malignant Hyperthermia: No Meds Allergies/Adverse Reactions: Allergies Allergy/AdvReac Type Severity Reaction Status Date / Time No Known Allergies Allergy Verified 11/08/16 19:39 Results - Vital Signs Recent Vital Signs: Last Vital Signs Temp 98.0 F 10/24/17 18:36 Pulse 79 10/24/17 18:36 Resp 17 10/24/17 18:36 BP 126/81 10/24/17 18:36 Pulse Ox 99 10/24/17 19:41 - Labs Result Diagrams: 10/24/17 17:25 10/24/17 17:25 Labs: Laboratory Results - last 24 hr 10/24/17 10/24/17 10/24/17 15:40 17:25 17:25 WBC 15.7 H D RBC 3.62 Hgb 10.7 L Hct 32.2 L MCV 89.0 MCH 29.6 MCHC 33.2 RDW 12.5 Plt Count 262 MPV 9.1 Gran % 84.3 H Lymph % (Auto) 8.4 L Ogle % (Auto) 6.8 H Eos % (Auto) 0.4 L Baso % (Auto) 0.1 Gran # 13.21 H Lymph # (Auto) 1.3 Ogle # (Auto) 1.1 H Eos # (Auto) 0.1 Baso # (Auto) 0.02 pO2 VBG pH VBG pCO2 VBG HCO3 VBG Total CO2 VBG O2 Sat (Calc) VBG Base Excess VBG Potassium Sodium 141 Chloride 100 Glucose Lactate FiO2 Potassium 4.2 Carbon Dioxide 31 Anion Gap 15 BUN 27 H Creatinine 1.1 Est GFR ( Amer) > 60 Est GFR (Non-Af Amer) > 60 Random Glucose 102 Calcium 9.7 Total Bilirubin 0.5 AST 31 ALT 50 Alkaline Phosphatase 100 Total Protein 7.3 Albumin 3.9 Globulin 3.4 Albumin/Globulin Ratio 1.2 Venous Blood Potassium Urine Color Yellow Urine Appearance Sl cloudy Urine pH 6.0 Ur Specific [place] 1.015 Urine Protein 30 H Urine Glucose (UA) Negative Urine Ketones Negative Urine Blood Small H Urine Nitrate Positive H Urine Bilirubin Negative Urine Urobilinogen 0.2 Ur Leukocyte Esterase Large H Urine RBC 5 - 10 Urine WBC Tntc Ur Epithelial Cells 6 - 8 Urine Bacteria Many Urine Other Usperm 10/24/17 17:25 WBC RBC Hgb Hct MCV MCH MCHC RDW Plt Count MPV Gran % Lymph % (Auto) Ogle % (Auto) Eos % (Auto) Baso % (Auto) Gran # Lymph # (Auto) Ogle # (Auto) Eos # (Auto) Baso # (Auto) pO2 37 VBG pH 7.34 VBG pCO2 60.0 VBG HCO3 32.4 H VBG Total CO2 34.2 H VBG O2 Sat (Calc) 72.9 H VBG Base Excess 4.8 H VBG Potassium 4.4 Sodium 139.0 Chloride 103.0 Glucose 104 Lactate 1.9 FiO2 21.0 Potassium Carbon Dioxide Anion Gap BUN Creatinine Est GFR ( Amer) Est GFR (Non-Af Amer) Random Glucose Calcium Total Bilirubin AST ALT Alkaline Phosphatase Total Protein Albumin Globulin Albumin/Globulin Ratio Venous Blood Potassium 4.4 Urine Color Urine Appearance Urine pH Ur Specific [place] Urine Protein Urine Glucose (UA) Urine Ketones Urine Blood Urine Nitrate Urine Bilirubin Urine Urobilinogen Ur Leukocyte Esterase Urine RBC Urine WBC Ur Epithelial Cells Urine Bacteria Urine Other <Gerardo Hassan - Last Filed: 10/25/17 07:47> Results - Vital Signs Recent Vital Signs: Last Vital Signs Temp 98.0 F 10/24/17 18:36 Pulse 79 10/24/17 18:36 Resp 17 10/24/17 18:36 BP 126/81 10/24/17 18:36 Pulse Ox 99 10/24/17 19:41 - Labs Result Diagrams: 10/24/17 17:25 10/24/17 17:25 Labs: Laboratory Results - last 24 hr 10/24/17 10/24/17 10/24/17 15:40 17:25 17:25 WBC 15.7 H D RBC 3.62 Hgb 10.7 L Hct 32.2 L MCV 89.0 MCH 29.6 MCHC 33.2 RDW 12.5 Plt Count 262 MPV 9.1 Gran % 84.3 H Lymph % (Auto) 8.4 L Ogle % (Auto) 6.8 H Eos % (Auto) 0.4 L Baso % (Auto) 0.1 Gran # 13.21 H Lymph # (Auto) 1.3 Ogle # (Auto) 1.1 H Eos # (Auto) 0.1 Baso # (Auto) 0.02 pO2 VBG pH VBG pCO2 VBG HCO3 VBG Total CO2 VBG O2 Sat (Calc) VBG Base Excess VBG Potassium Sodium 141 Chloride 100 Glucose Lactate FiO2 Potassium 4.2 Carbon Dioxide 31 Anion Gap 15 BUN 27 H Creatinine 1.1 Est GFR ( Amer) > 60 Est GFR (Non-Af Amer) > 60 Random Glucose 102 Calcium 9.7 Total Bilirubin 0.5 AST 31 ALT 50 Alkaline Phosphatase 100 Total Protein 7.3 Albumin 3.9 Globulin 3.4 Albumin/Globulin Ratio 1.2 Venous Blood Potassium Urine Color Yellow Urine Appearance Sl cloudy Urine pH 6.0 Ur Specific [place] 1.015 Urine Protein 30 H Urine Glucose (UA) Negative Urine Ketones Negative Urine Blood Small H Urine Nitrate Positive H Urine Bilirubin Negative Urine Urobilinogen 0.2 Ur Leukocyte Esterase Large H Urine RBC 5 - 10 Urine WBC Tntc Ur Epithelial Cells 6 - 8 Urine Bacteria Many Urine Other Usperm 10/24/17 17:25 WBC RBC Hgb Hct MCV MCH MCHC RDW Plt Count MPV Gran % Lymph % (Auto) Ogle % (Auto) Eos % (Auto) Baso % (Auto) Gran # Lymph # (Auto) Ogle # (Auto) Eos # (Auto) Baso # (Auto) pO2 37 VBG pH 7.34 VBG pCO2 60.0 VBG HCO3 32.4 H VBG Total CO2 34.2 H VBG O2 Sat (Calc) 72.9 H VBG Base Excess 4.8 H VBG Potassium 4.4 Sodium 139.0 Chloride 103.0 Glucose 104 Lactate 1.9 FiO2 21.0 Potassium Carbon Dioxide Anion Gap BUN Creatinine Est GFR ( Amer) Est GFR (Non-Af Amer) Random Glucose Calcium Total Bilirubin AST ALT Alkaline Phosphatase Total Protein Albumin Globulin Albumin/Globulin Ratio Venous Blood Potassium 4.4 Urine Color Urine Appearance Urine pH Ur Specific [place] Urine Protein Urine Glucose (UA) Urine Ketones Urine Blood Urine Nitrate Urine Bilirubin Urine Urobilinogen Ur Leukocyte Esterase Urine RBC Urine WBC Ur Epithelial Cells Urine Bacteria Urine Other Attending/Attestation - Attestation I have personally seen and examined this patient.: No I have fully participated in the care of the patient.: No I have reviewed all pertinent clinical information: No Notes (Text): 10/25/17 07:47 Patient was not seen by attending. Patient signed AGAINST MEDICAL ADVICE from the ER.
== END 2017-10-24 19:41 | disposition left against medical advice (07) ==
LOC: ED 14:48 → ERH 18:40 → UNDOADMOB 18:40
DX: T83.511A Infection and inflammatory reaction due to indwelling urethral catheter, initial encounter (principal); N39.0 Urinary tract infection, site not specified; I10 Essential (primary) hypertension
CPT/HCPCS: 80053; 81001; 82803; 85025; 87040; 87086; 96365; 99284; J0696

== ENCOUNTER 2017-12-13 06:03 | Day surgery (SDC) | payer MEDICARE, OTHER ==
[2017-11-29 11:41] VITALS: BMI 25.0
[2017-12-13] MEDS ORDERED: Propofol 10 mg/ml Inj (20 ML) ONE (07:39)
[2017-12-13] MEDS ORDERED: Lidocaine PF 2% (5 ml) Inj (For Cardiac Arrhy) ONE (07:41)
[2017-12-13] MEDS ORDERED: Sevoflurane - Inhalation Anesthetic Liq (250 ml) ONE (07:44)
[2017-12-13 07:52] VITALS: RESP 18; TEMP 98.1
[2017-12-13] MEDS ORDERED: Vancomycin 1 g Inj ONE (08:23)
[2017-12-13] MEDS ORDERED: ePHEDrine 50 mg/ml Inj ONE (08:53)
[2017-12-13] MEDS ORDERED: HYDROmorphone 0.5 mg/0.5 ml ISec IVP PRN (09:58)
[2017-12-13] MEDS ORDERED: Lactated Ringer's 1,000 ML IV SCH (10:00)
--- NOTE | 2017-12-13 10:49 | OP ---
PROCEDURE DATE: 12/13/2017 PREOPERATIVE DIAGNOSES: Urinary retention, bladder outlet obstruction. POSTOPERATIVE DIAGNOSES: Urinary retention, bladder outlet obstruction. PROCEDURE: Cystoscopy with GreenLight laser photovaporization of prostate. ATTENDING SURGEON: Santi Osuna MD. ANESTHESIA: General. SPECIMENS: None. DRAINS: A 20-Belizean 3-way Mckinley catheter. COMPLICATIONS: None. OPERATIVE FINDINGS: After informed consent was obtained, the patient was taken to the Operating Room and placed on operating table. Anesthesia was administered. The patient received IV antibiotics prior to start of the procedure. A 21-Belizean laser scope with a visualizing obturator was placed in the patient's urethra and advanced under direct vision until the bladder was entered. A full survey inspection of bladder was then performed which revealed no stones, tumors or foreign bodies of the bladder. There were some mild catheter reaction noted on the posterior wall. Bladder had grade 1 trabeculation. Both ureteral orifices were visualized and appeared within normal limits. At this point, the scope was withdrawn to the level of the verumontanum. The of the prostate appeared with enlarged occlusive appearing lateral lobes. There was a small median lobe growth. At this point, a GreenLight laser fiber was obtained. It was passed through the scope and laser vaporization of the prostate was performed. The prostate was vaporized starting from the bladder neck region and working distally until the level of the verumontanum. All the obstructive tissue from the lateral lobes was ablated down to the surgical capsule. The small median lobe growth was also ablated. The tissue at the 6 o'clock and 12 o'clock position was also ablated. After the prostate had been fully vaporized, the irrigation fluid was turned off. Inspection was made for any bleeding points. Any small bleeding points were then controlled using the laser on cauterization function. When hemostasis was complete, final inspection was made. There was small amount of debris and the bladder was able to be irrigated out through the scope. The view from the verumontanum at this point revealed a widely opened prostatic fossa with no obstructing tissue. At this point, the procedure was complete, the scope was removed and a 20-Belizean 3-way Mckinley catheter was passed and placed to continuous bladder irrigation. The patient tolerated the procedure well. He was returned to supine position and taken to the Recovery Room awake in stable condition. Santi Osuna MD [facility] # [id number]
[2017-12-13 11:43] VITALS: BP 147/72; PULSE 80; O2SAT 99
== END 2017-12-13 12:20 | disposition home or self-care (01) ==
LOC: SDS 06:03
PROVIDERS: ATTEND Urology
DX: N40.1 Benign prostatic hyperplasia with lower urinary tract symptoms (principal); R33.9 Retention of urine, unspecified; N32.0 Bladder-neck obstruction; R39.14 Feeling of incomplete bladder emptying; E79.0 Hyperuricemia without signs of inflammatory arthritis and tophaceous disease; R49.0 Dysphonia; I10 Essential (primary) hypertension; Z90.49 Acquired absence of other specified parts of digestive tract
CPT/HCPCS: 52648; J1170; J2405; J2704; J2765; J3010; J7120 ×2